=== PATIENT | male | born 1945 | race Caucasian/White ===

== ENCOUNTER → 2017-03-30 | Day surgery (SDC) | payer MEDICARE, MEDICAID ==
--- NOTE | 2017-03-29 18:28 | MH ---
cc: ASYA GUADARRAMA DATE OF ADMISSION 03/30/2017 ADMISSION DIAGNOSIS Compression fracture of L2, subacute. HISTORY OF THE PRESENT ILLNESS This patient is 71-year-old white male with a known history of malignant lung neoplasia. The patient had chronic long-term low back pain but over the last month or two especially he has had significant increasing pain and decreasing function. An MRI scan was obtained showing evidence of a compression fracture at the L2 level. The patient presents for surgical treatment of the above condition. PAST MEDICAL HISTORY, SOCIAL HISTORY, FAMILY HISTORY AND REVIEW OF SYMPTOMS See attached notes. PHYSICAL EXAMINATION VITAL SIGNS: 5 feet, 3 inches, 98 pounds, BMI 17.4. Blood pressure 122/64. GENERAL: White male. He has a moderate kyphotic posture. HEENT: Normocephalic, atraumatic. Pupils equal, round, reactive to light and accommodation. Extraocular motions intact. NECK: Supple. CHEST: Clear with some decreased breath sounds. HEART: Regular rate and rhythm. ABDOMEN: Soft and nontender. Normoactive bowel sounds. MUSCULOSKELETAL: Stooped forward gait. He has moderate thoracic kyphosis. Moderate spasm is seen. Dorsalis pedis and posterior tibialis pulses diminished. Motor examination is normal. IMPRESSION 1. Compression fracture L2, subacute. 2. History of malignant neoplasm of the lung status post resection. PLAN Kyphoplasty of L2 with a biopsy. CONSENT The risks of this condition and surgery including infection, bleeding, loss of motion, continued pain, need for further surgery, neurologic and vascular injury. The patient understands these issues and wishes to press on with surgery as outlined above. MD MODE Rand/CHANG /5:59 PM /6:14 PM LIYA
[~2017-03-30] VITALS: Ht 160 cm; Wt 44.9 kg
[~2017-03-30] MED LIST: ACETAMINOPHEN/HYDROcodone 325 MG/7.5 MG TAB PO PRN; BUPIVACAINE/EPINEPHRINE 0.25% PF 10 ML VIAL ONE; CHLORHEXIDINE GLUCONATE 2 % 1 PACK (2 CLOTHS) TOPICAL PRN; CLON1TAB PO; DICL50TA3 PO; DO NOT ADM ANY ANTICOAGULANT DRUGS PRN; HYDR-3288 PO; IBUP-232 PO; INSULIN HUMAN REGULAR 1,000 UNITS/10 ML VIAL SQ PRN; KETAMINE HCL 500 MG/5 ML VIAL ONE; KETOROLAC TROMETHAMINE 60 MG/2 ML (IM) VIAL IM ONE; LABETALOL HCL 100 MG/20 ML VIAL ONE; LACTATED RINGER'S 1000 ML INJ 1,000 ML IV SCH; LACTATED RINGER'S 1000 ML IV PRN; LIDOCAINE 1%/EPINEPHrine 1:100,000 SOLN 20 ML VIAL ONE; LISI10TA3 PO; METOPROLOL TARTRATE 25 MG TAB PO PRN; MIDAZOLAM HCL 2 MG/2 ML VIAL ONE; MORPHINE SULFATE 4 MG/ML INJ IV PRN; MORPHINE SULFATE 4 MG/ML INJ ONE; PERC5TAB12 PO; PHENYLEPH/NS 1000 MCG/10 ML SYR IV ONE; POVIDONE IODINE 5% (ANTISEPSIS KIT) 4 APPLICATIONS EACH NARE PRN; POVIDONE IODINE 7.5% SCRUB 118 ML BOTTLE TOPICAL SCH; PROPOFOL 200 MG/20 ML AMP IV ONE; PROS5TAB PO; SERT25TA83 PO; SODIUM CHLORID 0.9% 500 ML IV PRN; TAMS0.4C4 PO; TEMA15CA PO; Z.0.NO CURRENT MEDS; ZOLO25TA PO; ceFAZolin 2 GM PREMIX 50 ML IV SCH; ePHEDrine/NS 25 MG/5 ML SYR IV ONE
[2017-03-30 13:18] VITALS: BP 152/104; PULSE 88; RESP 18; TEMP 97.8; O2SAT 98
[2017-03-30 13:31] LABS: AUTOMATED NEUTROPHIL # 4.5 TH/MM3 (1.8-7.7); BASOPHIL # 0.1 TH/MM3 (0-0.2); BASOPHIL % 1.3 % (0.0-2.0); EOSINOPHIL # 0.2 TH/MM3 (0-0.4); EOSINOPHIL % 2.2 % (0.0-4.0); HEMO FLAGS DIFF FINAL; LYMPH % 25.5 % (9.0-44.0); LYMPHOCYTE # 1.8 TH/MM3 (1.0-4.8); MEAN CELL VOLUME 101.3 FL (80.0-100.0); MEAN CORPUSCULAR HEMOGLOBIN 33.8 PG (27.0-34.0); MEAN CORPUSCULAR HGB CONC 33.4 % (32.0-36.0); MONO % 7.5 % (0.0-8.0); NEUT % 63.5 % (16.0-70.0); PLATELET COUNT 302 TH/MM3 (150-450); RED BLOOD COUNT 4.05 MIL/MM3 (4.50-5.90); RED CELL DISTRIBUTION WIDTH 14.2 % (11.6-17.2); WHITE BLOOD COUNT 7.1 TH/MM3 (4.0-11.0)
[2017-03-30 13:40] LABS: PROTHROMBIN TIME - PATIENT 11.2 SEC (9.8-11.6)
--- NOTE | 2017-03-30 17:07 | PD.OP ---
cc: Camilo Umanzor MD Operative Report Date of Surgery: Mar 30, 2017 Preoperative Diagnosis: Compression fracture, L2 subacute Postoperative Diagnosis: Same Procedure: Kyphoplasty of L2 Anesthesia: TIVA Surgeon: Camilo Umanzor Blocking Machine Operator Second(s): None Operation and Findings: EBL: Minimal cc INDICATION: This patient is a 71-year-old male with increasing back pain related to a subacute fracture at the L2 level. The patient has a history of malignant neoplasia. The patient presents for biopsy with a kyphoplasty of L2 PROCEDURE: The patient was brought to the operating room and given light sedation.. The patient was allowed to rolled to a prone position on a well- padded radiolucent table. All pressure points were protected in the back was scrubbed with alcohol followed by Hibiclens followed by ChloraPrep and draped sterilely. A timeout was done and antibiotics were given. AP and lateral radiographic images were used to identify the proper levels and perform skin markings. We started from the left side at the L2 level. Local anesthesia was utilized. A small incision was made. An awl was placed down through the skin subcutaneous tissue and muscle down to the end of the facet joint. This is placed through the pedicle controlling this under AP and lateral images. A proper size balloon was placed through this allowing correction of the deformity. On the back table methylmethacrylate was mixed. After approximately 11 minutes it was injected at this region. We had minimal extravasation. The cement was allowed harden. The tubes were removed. Intraoperative x-rays were obtained in AP and lateral plane. The wound was irrigated anesthetized and closed with 4-0 Vicryl followed by Dermabond. The sponge count and needle counts and instrument counts were all correct. The patient tolerated the procedure well as taken to the recovery room in satisfactory condition. FINDINGS: There was evidence of a subacute fracture at L2. Correction was incomplete with the balloon. Alignment was satisfactory. No complication was appreciated. Camilo Umanzor MD Mar 30, 2017 17:07
[2017-03-30 18:37] VITALS: BP 158/78; PULSE 65; RESP 16; TEMP 97.4; O2SAT 96
--- NOTE | 2017-03-30 18:46 | RADRPT ---
EXAM DATE/TIME: 03/30/2017 16:58 [facility] COMPARISON: SPINE LUMBAR LTD (AP & LAT), June 06, 2011, 23:13. INDICATIONS : L2 KYPHOPLASTY. MEDICAL HISTORY : Unobtainable. SURGICAL HISTORY : Unobtainable. ENCOUNTER: Initial ACUITY: 1 day PAIN SCORE: Non-responsive. LOCATION: Lumbar spine. FINDINGS: 2 magnified C-arm spot views centered over the lumbar spine. A single level cement augmentation is ob served. CONCLUSION: Limited image as detailed above. Efrain Orr Jr., MD on March 30, 2017 at 18:44 Board Certified Radiologist. This report was verified electronically.
--- NOTE | 2017-03-31 12:12 | EKG ---
Date Performed: 03/30/2017 Time Performed: 13:23:59 PTAGE: 71 years EKG: Sinus rhythm SEPTAL MYOCARDIAL INFARCTION , PROBABLY OLD ABNORMAL ECG NO PREVIOUS TRACING DOCTOR: Austin Figueroa Interpretating Date/Time 03/31/2017 12:08:48
== END | disposition home or self-care (01) ==
LOC: HSDC 12:39
PROVIDERS: ATTEND Orthopaedic Surgery Orthopaedic Surgery of the Spine
DX: S32.029A Unspecified fracture of second lumbar vertebra, initial encounter for closed fracture (principal); G89.29 Other chronic pain; M54.5 Low back pain; Z85.118 Personal history of other malignant neoplasm of bronchus and lung; K21.9 Gastro-esophageal reflux disease without esophagitis; I10 Essential (primary) hypertension; F17.200 Nicotine dependence, unspecified, uncomplicated; X58.XXXA Exposure to other specified factors, initial encounter; Z86.73 Personal history of transient ischemic attack (TIA), and cerebral infarction without residual deficits; Z92.21 Personal history of antineoplastic chemotherapy; Z92.3 Personal history of irradiation
CPT/HCPCS: 22514; 72100; 76000; 85025; 85610; 85730; 86850; 86900; 86901; 88307; 88311; 88341; 88342; 93005; J1885; J2250; J2270; J2370; J3010; J7120

== ENCOUNTER 2017-04-18 14:52 | Emergency (ER) | payer MEDICAID, MEDICARE, OTHER ==
[~2017-04-18] VITALS: Ht 160 cm; Wt 44.5 kg
[~2017-04-18 14:52] MED LIST changes: -ACETAMINOPHEN/HYDROcodone 325 MG/7.5 MG TAB PO PRN; -BUPIVACAINE/EPINEPHRINE 0.25% PF 10 ML VIAL ONE; -CHLORHEXIDINE GLUCONATE 2 % 1 PACK (2 CLOTHS) TOPICAL PRN; -DO NOT ADM ANY ANTICOAGULANT DRUGS PRN; -IBUP-232 PO; -INSULIN HUMAN REGULAR 1,000 UNITS/10 ML VIAL SQ PRN; -KETAMINE HCL 500 MG/5 ML VIAL ONE; -KETOROLAC TROMETHAMINE 60 MG/2 ML (IM) VIAL IM ONE; -LABETALOL HCL 100 MG/20 ML VIAL ONE; -LACTATED RINGER'S 1000 ML INJ 1,000 ML IV SCH; -LACTATED RINGER'S 1000 ML IV PRN; -LIDOCAINE 1%/EPINEPHrine 1:100,000 SOLN 20 ML VIAL ONE; -METOPROLOL TARTRATE 25 MG TAB PO PRN; -MIDAZOLAM HCL 2 MG/2 ML VIAL ONE; -MORPHINE SULFATE 4 MG/ML INJ IV PRN; -MORPHINE SULFATE 4 MG/ML INJ ONE; -PERC5TAB12 PO; -PHENYLEPH/NS 1000 MCG/10 ML SYR IV ONE; -POVIDONE IODINE 5% (ANTISEPSIS KIT) 4 APPLICATIONS EACH NARE PRN; -POVIDONE IODINE 7.5% SCRUB 118 ML BOTTLE TOPICAL SCH; -PROPOFOL 200 MG/20 ML AMP IV ONE; -SODIUM CHLORID 0.9% 500 ML IV PRN; -Z.0.NO CURRENT MEDS; -ceFAZolin 2 GM PREMIX 50 ML IV SCH; -ePHEDrine/NS 25 MG/5 ML SYR IV ONE
[2017-04-18 14:58] VITALS: BP 71/50; PULSE 66; RESP 30; TEMP 97.4; O2SAT 98
[2017-04-18 15:23] VITALS: BP 93/50; PULSE 78; RESP 16; TEMP 98.6; O2SAT 98
[2017-04-18] MEDS ORDERED: SODIUM CHLORIDE 0.9% FLUSH 10 ML FLUSH IV FLUSH PRN (15:45)
--- NOTE | 2017-04-18 15:46 | PD ---
HPI Chief Complaint: Abdominal Pain Time Seen by Provider: 15:40 Travel History International Travel<30 days: No Contact w/Intl Traveler<30days: No Traveled to known affect area: No History of Present Illness HPI 71yo M with PMH of malignant lung neoplasm and chronic back pain presents to the ED with c/o back pain. Pt had MRI LS that showed compression fracture of L2 and had kyphoplasty of L2 and biopsy by Dr. Nelson. Pt states that they only gave him 5mg hydrocodone and it is not enough. He used to take oxycodone and a higher dose. Pt states he has abdominal pain as well but that is all the time. Pt denies any fever, chest pain, sob, n/v, focal weakness or numbness. Pt states he is very weak with generalized weakness and keeps falling because he is so weak. Feel twice today. Denies any LOC. PFSH Past Medical History Arthritis: Yes Cardiovascular Problems: Yes (HTN) Diminished Hearing: Yes Gastrointestinal Disorders: Yes (ULCERS) Genitourinary: No Headaches: Yes (SOMETIMES) Hypertension: Yes (DOES NOT TAKE MEDS FOR IT) Psychiatric: No Respiratory: No Ulcer: Yes Past Surgical History Abdominal Surgery: Yes (STOMACH SURGERY FOR ULCER, DONE IN [place] IN 1971) Ear Surgery: Yes (BILATERAL EARS LAST YEAR) Other Surgery: Yes Social History Alcohol Use: Yes (OCCASIONAL) Tobacco Use: Yes (1PPD) Substance Use: No Allergies-Medications (Allergen,Severity, Reaction): Coded Allergies: Tramadol (Verified Allergy, Mild, Itching, 03/30/17) Reported Meds & Prescriptions Reported Meds & Active Scripts Active Percocet (Oxycodone-Acetaminophen) 5-325 mg Tab 1 Tab PO Q6H PRN Reported Tamsulosin (Tamsulosin HCl) 0.4 Mg Cap 0.4 Mg PO HS Lisinopril 10 Mg Tab 10 Mg PO DAILY Proscar (Finasteride) 5 Mg Tab 5 Mg PO DAILY Do not crush. Clonazepam 1 Mg Tab 1 Mg PO BID Review of Systems Except as stated in HPI: all other systems reviewed are Neg Physical Exam Narrative GENERAL: 71yo male who is cachetic. SKIN: Focused skin assessment warm/dry. HEAD: Atraumatic. Normocephalic. EYES: Pupils equal and round. No scleral icterus. No injection or drainage. ENT: No nasal bleeding or discharge. Mucous membranes pink and moist. NECK: Trachea midline. No JVD. CARDIOVASCULAR: Regular rate and rhythm. No murmur appreciated. RESPIRATORY: No accessory muscle use. Clear to auscultation. Breath sounds equal bilaterally. GASTROINTESTINAL: Abdomen soft, diffuse tenderness. No rebound tenderness or guarding. BACK: Diffuse lower lumbar pain. MUSCULOSKELETAL: No obvious deformities. No clubbing. No cyanosis. No edema. NEUROLOGICAL: Awake and alert. No obvious cranial nerve deficits. Motor grossly within normal limits. Normal speech. PSYCHIATRIC: Appropriate mood and affect; insight and judgment normal. Data Data Last Documented VS Vital Signs Date Time Temp Pulse Resp B/P Pulse Ox O2 Delivery O2 Flow Rate FiO2 04/18/17 19:30 87 20 137/64 99 04/18/17 17:30 Room Air 04/18/17 15:23 98.6 Orders Complete Blood Count With Diff (04/18/17 15:40) Comprehensive Metabolic Panel (04/18/17 15:40) Prothrombin Time / Inr (Pt) (04/18/17 15:40) Act Partial Throm Time (Ptt) (04/18/17 15:40) Ct Abd/Pel W Iv Contrast(Rout) (04/18/17 15:40) Iv Access Insert/Monitor (04/18/17 15:40) Ecg Monitoring (04/18/17 15:40) Oximetry (04/18/17 15:40) Sodium Chloride 0.9% Flush (Ns Flush) (04/18/17 15:45) Morphine Inj (Morphine Inj) (04/18/17 16:15) Iohexol 350 Inj (Omnipaque 350 Inj) (04/18/17 18:09) Labs Laboratory Tests Test 04/18/17 15:30 White Blood Count 5.9 TH/MM3 Red Blood Count 4.04 MIL/MM3 Hemoglobin 13.3 GM/DL Hematocrit 40.5 % Mean Corpuscular Volume 100.2 FL Mean Corpuscular Hemoglobin 33.0 PG Mean Corpuscular Hemoglobin 32.9 % Concent Red Cell Distribution Width 14.0 % Platelet Count 252 TH/MM3 Mean Platelet Volume 8.9 FL Neutrophils (%) (Auto) 65.8 % Lymphocytes (%) (Auto) 24.4 % Monocytes (%) (Auto) 7.0 % Eosinophils (%) (Auto) 2.3 % Basophils (%) (Auto) 0.5 % Neutrophils # (Auto) 3.9 TH/MM3 Lymphocytes # (Auto) 1.4 TH/MM3 Monocytes # (Auto) 0.4 TH/MM3 Eosinophils # (Auto) 0.1 TH/MM3 Basophils # (Auto) 0.0 TH/MM3 CBC Comment DIFF FINAL Differential Comment Prothrombin Time 11.5 SEC Prothromb Time International 1.0 RATIO Ratio Activated Partial 27.8 SEC Thromboplast Time Sodium Level 137 MEQ/L Potassium Level 4.6 MEQ/L Chloride Level 105 MEQ/L Carbon Dioxide Level 26.0 MEQ/L Anion Gap 6 MEQ/L Blood Urea Nitrogen 15 MG/DL Creatinine 1.07 MG/DL Estimat Glomerular Filtration 69 ML/MIN Rate Random Glucose 100 MG/DL Calcium Level 8.9 MG/DL Total Bilirubin 0.3 MG/DL Aspartate Amino Transf 14 U/L (AST/SGOT) Alanine Aminotransferase 11 U/L (ALT/SGPT) Alkaline Phosphatase 73 U/L Total Protein 7.0 GM/DL Albumin 4.0 GM/DL MDM Medical Decision Making Medical Screen Exam Complete: Yes Emergency Medical Condition: Yes Differential Diagnosis metastatic disease vs. failure to thrive Narrative Course 71yo M with lung CA here with complain of generalized weakness and fell because he is so weak. Pt also has chronic back pain and abdominal pain. States hydrocdone does not work. BP at triage was initially 71/50 but pt is very small and cachetic. When we checked his pressure with pediatric bp cuff, it was 93/50. Repeat BP was 131/62. Pt is requesting morphine for pain. Will give 4mg IV. Labs reviewed, no leukocytosis. H/H normal. CMP unremarkable. CT a/p showed no acute findings within the abdomen and pelvis. Pt reevaluated after morphine 4mg IV and states his pain has resolved. States that now he is able to walk and that before, he was in too much pain to walk. States he no longer feels weak. I offered hospice care but pt is not ready for it. States that if I give him some pain medication, he will be able to follow up with his doctor. Pt last had chemo 4 years ago and oncologist was Dr. Guajardo. Pt states he feels good and is ambulating in the ED. States he is sorry that he lied and he tripped over shoe and fell and not because of weakness. States he will follow up with his PMD. Return precautions given. Diagnosis Primary Impression: Chronic back pain Qualified Code: M54.5 - Chronic bilateral low back pain without sciatica Patient Instructions: General Instructions Departure Forms: Tests/Procedures Additional Instructions: Please follow up with your PMD in 1-2 days. Return to the ED if symptoms worsen. Med/Other Pt SpecificInfo: Prescription(s) given Scripts Oxycodone-Acetaminophen (Percocet)5-325 mg Tab1 Tab PO Q6H PRN (PAIN) #7 TAB Ref 0 Prov:Helen Martinez DO 04/18/17 Disposition: 01 DISCHARGE HOME Condition: Stable Helen Martinez DO Apr 18, 2017 15:46
[2017-04-18 15:56] VITALS: BP 131/62; PULSE 52; RESP 16; O2SAT 98
[2017-04-18] MEDS ORDERED: MORPHINE SULFATE 4 MG/ML INJ IV PUSH ONE (16:15)
[2017-04-18 16:34] LABS: AUTOMATED NEUTROPHIL # 3.9 TH/MM3 (1.8-7.7); BASOPHIL % 0.5 % (0.0-2.0); EOSINOPHIL # 0.1 TH/MM3 (0-0.4); EOSINOPHIL % 2.3 % (0.0-4.0); HEMATOCRIT 40.5 % (39.0-51.0); HEMO FLAGS DIFF FINAL; LYMPH % 24.4 % (9.0-44.0); LYMPHOCYTE # 1.4 TH/MM3 (1.0-4.8); MEAN CELL VOLUME 100.2 FL (80.0-100.0); MEAN CORPUSCULAR HGB CONC 32.9 % (32.0-36.0); NEUT % 65.8 % (16.0-70.0); PLATELET COUNT 252 TH/MM3 (150-450); RED BLOOD COUNT 4.04 MIL/MM3 (4.50-5.90); WHITE BLOOD COUNT 5.9 TH/MM3 (4.0-11.0)
[2017-04-18 16:35] LABS: APTT (PATIENT) 27.8 SEC (24.3-30.1); PROTHROMBIN TIME - PATIENT 11.5 SEC (9.8-11.6)
[2017-04-18 16:41] LABS: ALT (GPT) 11 U/L (12-78); ANION GAP 6 MEQ/L (5-15); AST (GOT) 14 U/L (15-37); BLOOD UREA NITROGEN 15 MG/DL (7-18); CHLORIDE 105 MEQ/L (98-107); GLOMERULAR FILTRATION RATE 69 ML/MIN (>89); POTASSIUM 4.6 MEQ/L (3.5-5.1); SODIUM (NA) 137 MEQ/L (136-145)
[2017-04-18 16:44] LABS: ALKALINE PHOSPHATASE 73 U/L (45-117); TOTAL BILIRUBIN ADULT 0.3 MG/DL (0.2-1.0)
[2017-04-18 17:30] VITALS: BP 133/68; PULSE 56; RESP 16; O2SAT 95
[2017-04-18] MEDS ORDERED: IOHEXOL 350 MG/ML 10 ML VIAL (for RAD DIAG) IV ONE (18:09)
--- NOTE | 2017-04-18 18:35 | RADRPT ---
EXAM DATE/TIME: 04/18/2017 17:59 [facility] COMPARISON: No previous studies available for comparison. INDICATIONS : Abdomen pain. IV CONTRAST: 75 cc Omnipaque 350 (iohexol) IV ORAL CONTRAST: No oral contrast ingested. RADIATION DOSE: 4.65 CTDIvol (mGy) MEDICAL HISTORY : Carcinoma, lung. Hypertension. SURGICAL HISTORY : Kyphoplasty. ENCOUNTER: Initial ACUITY: 1 month PAIN SCALE: 5/10 LOCATION: abdomen TECHNIQUE: Volumetric scanning of the abdomen and pelvis was performed. Using automated exposure control and ad justment of the mA and/or kV according to patient size, radiation dose was kept as low as reasonably achievable to obtain optimal diagnostic quality images. FINDINGS: Lung bases demonstrate moderate emphysema. Parenchymal scarring right lung base with partial resectio n right lung. No acute findings within the liver, spleen, kidneys or pancreas. There is fatty infiltration of the l iver. Left adrenal gland is enlarged to 1.7 cm in diameter. Right kidney is unremarkable. No pelvic masses or free fluid. No bowel obstruction. 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 There is a compression deformity of L2 status post kyphoplasty. CONCLUSION: 1. No acute findings within the abdomen and pelvis. No bowel obstruction, free air or free fluid. 2. Dense atherosclerotic disease in the aorta and branches with likely occlusive disease in the iliac arteries. 3. Fatty liver. Mild left adrenal enlargement, probably adenomatous. 4. Moderate emphysema at the lung bases. Peter Nicolas MD on April 18, 2017 at 18:24 Board Certified Radiologist. This report was verified electronically.
[2017-04-18] MEDS ORDERED: PERC5TAB12 PO (19:00)
[2017-04-18 19:11] VITALS: RESP 20
[2017-04-18 19:30] VITALS: BP 137/64
== END 2017-04-18 19:32 | disposition home or self-care (01) ==
LOC: NEPE 14:52
DX: M54.5 Low back pain (principal); G89.29 Other chronic pain; R10.9 Unspecified abdominal pain; C34.90 Malignant neoplasm of unspecified part of unspecified bronchus or lung; I10 Essential (primary) hypertension; H91.90 Unspecified hearing loss, unspecified ear; F17.200 Nicotine dependence, unspecified, uncomplicated; Z98.890 Other specified postprocedural states; Z87.39 Personal history of other diseases of the musculoskeletal system and connective tissue; Z86.79 Personal history of other diseases of the circulatory system; Z87.19 Personal history of other diseases of the digestive system
CPT/HCPCS: 74177; 80053; 85025; 85610; 85730; 96374; 99285; J2270; Q9967

== ENCOUNTER 2017-05-04 14:42 | Emergency (ER) | payer OTHER ==
[~2017-05-04] VITALS: Ht 160 cm; Wt 44.5 kg
[~2017-05-04 14:42] MED LIST changes: -DICL50TA3 PO; -HYDR-3288 PO; +PERC5TAB12 PO; -SERT25TA83 PO; -TEMA15CA PO; -ZOLO25TA PO
[2017-05-04 14:46] VITALS: BP 188/94; PULSE 92; RESP 16; TEMP 97.7; O2SAT 98
[2017-05-04] MEDS ORDERED: ONDANSETRON HCL 4 MG/2 ML VIAL IV PUSH ONE (16:45)
[2017-05-04] MEDS ORDERED: MORPHINE SULFATE 4 MG/ML INJ IV PUSH ONE (16:45)
--- NOTE | 2017-05-04 16:45 | PD ---
HPI Chief Complaint: Back/ Neck Pain or Injury Time Seen by Provider: 16:30 Travel History International Travel<30 days: No Contact w/Intl Traveler<30days: No Traveled to known affect area: No History of Present Illness HPI This is a 71-year-old male who presents for evaluation of back pain and urinary hesitancy. The patient underwent a L2 kyphoplasty on [address] Umanzor. Since then he has had lower back pain. He was seen here for evaluation of this on April 18. He had a normal CT of the abdomen and pelvis with contrast. He was discharged with Percocet. He quit using it because it was making itchy. He reports over the past week he has developed urinary hesitancy. He reports that it takes approximately 30 minutes in order to initiating urine stream. He is denying any dysuria or abdominal pain or flank pain. He denies any fevers or chills. He reports that he was seen at a different hospital and he was given an antibiotic, Bactrim, for this symptom. The Bactrim is not helped and this is what prompted evaluation today. He denies any lower extremity weakness, bowel or bladder incontinence, saddle anesthesia. He has no other complaints. PFSH Past Medical History Arthritis: Yes Cardiovascular Problems: Yes Diminished Hearing: Yes Gastrointestinal Disorders: Yes (ULCERS) Genitourinary: No Headaches: Yes (SOMETIMES) Hypertension: Yes (DOES NOT TAKE MEDS FOR IT) Implanted Vascular Access Dvce: No Psychiatric: No Respiratory: No Ulcer: Yes Past Surgical History Abdominal Surgery: Yes (STOMACH SURGERY FOR ULCER, DONE IN [place] IN 1971) Ear Surgery: Yes (BILATERAL EARS LAST YEAR) Other Surgery: Yes Social History Alcohol Use: No Tobacco Use: No Substance Use: No Allergies-Medications (Allergen,Severity, Reaction): Coded Allergies: Tramadol (Verified Allergy, Mild, Itching, 05/04/17) Reported Meds & Prescriptions Reported Meds & Active Scripts Active Naproxen 500 Mg Tab 500 Mg PO BID 7 Days Tylenol-Codeine #3 (Acetaminophen-Codeine) 300-30 mg Tab 1 Tab PO Q4H PRN Percocet (Oxycodone-Acetaminophen) 5-325 mg Tab 1 Tab PO Q6H PRN Reported Tamsulosin (Tamsulosin HCl) 0.4 Mg Cap 0.4 Mg PO HS Lisinopril 10 Mg Tab 10 Mg PO DAILY Proscar (Finasteride) 5 Mg Tab 5 Mg PO DAILY Do not crush. Clonazepam 1 Mg Tab 1 Mg PO BID Review of Systems Except as stated in HPI: all other systems reviewed are Neg Physical Exam Narrative GENERAL: SKIN: Warm and dry. HEAD: Atraumatic. Normocephalic. EYES: Pupils equal and round. No scleral icterus. No injection or drainage. ENT: No nasal bleeding or discharge. Mucous membranes pink and moist. NECK: Trachea midline. No JVD. CARDIOVASCULAR: Regular rate and rhythm. No murmur appreciated. RESPIRATORY: No accessory muscle use. Clear to auscultation. Breath sounds equal bilaterally. GASTROINTESTINAL: Abdomen soft, non-tender, nondistended. Hepatic and splenic margins not palpable. Rectal examination reveals no tenderness to palpation or abnormalities of the prostate, no palpable masses. MUSCULOSKELETAL: No obvious deformities. There is some tenderness to palpation along the lumbar midline spine. No CVA tenderness. NEUROLOGICAL: Awake and alert. No obvious cranial nerve deficits. Motor grossly within normal limits. Normal speech.3+ patellar reflex bilaterally, 2+ Achilles tendon reflex bilaterally. No clonus. 5 out of 5 muscle strength hip flexion, leg flexion and extension, dorsi and plantar flexion bilaterally. PSYCHIATRIC: Appropriate mood and affect; insight and judgment normal. Data Data Last Documented VS Vital Signs Date Time Temp Pulse Resp B/P Pulse Ox O2 Delivery O2 Flow Rate FiO2 05/04/17 14:46 97.7 92 16 188/94 98 Room Air Orders Complete Blood Count With Diff (05/04/17 16:38) Basic Metabolic Panel (Bmp) (05/04/17 16:38) Urinalysis - C+S If Indicated (05/04/17 16:38) Morphine Inj (Morphine Inj) (05/04/17 16:45) Ondansetron Inj (Zofran Inj) (05/04/17 16:45) Sodium Chlor 0.9% 1000 Ml Inj (Ns 1000 M (05/04/17 17:22) Ed Poc Ultrasound (05/04/17 ) Skull, Limited (<4 Views) (05/04/17 ) Sodium Chlor 0.9% 1000 Ml Inj (Ns 1000 M (05/04/17 19:07) Mri L Spine W&W/O Contrast (05/04/17 ) Gadodiamide Pf Inj (Omniscan Pf Inj) (05/04/17 19:54) Labs Laboratory Tests Test 05/04/17 16:45 White Blood Count 6.0 TH/MM3 Red Blood Count 3.99 MIL/MM3 Hemoglobin 13.3 GM/DL Hematocrit 39.9 % Mean Corpuscular Volume 100.0 FL Mean Corpuscular Hemoglobin 33.2 PG Mean Corpuscular Hemoglobin 33.2 % Concent Red Cell Distribution Width 14.5 % Platelet Count 251 TH/MM3 Mean Platelet Volume 8.4 FL Neutrophils (%) (Auto) 79.4 % Lymphocytes (%) (Auto) 12.9 % Monocytes (%) (Auto) 6.8 % Eosinophils (%) (Auto) 0.3 % Basophils (%) (Auto) 0.6 % Neutrophils # (Auto) 4.8 TH/MM3 Lymphocytes # (Auto) 0.8 TH/MM3 Monocytes # (Auto) 0.4 TH/MM3 Eosinophils # (Auto) 0.0 TH/MM3 Basophils # (Auto) 0.0 TH/MM3 CBC Comment DIFF FINAL Differential Comment Urine Color YELLOW Urine Turbidity HAZY Urine pH 6.0 Urine Specific [place] 1.034 Urine Protein 30 mg/dL Urine Glucose (UA) NEG mg/dL Urine Ketones TRACE mg/dL Urine Occult Blood NEG Urine Nitrite NEG Urine Bilirubin NEG Urine Urobilinogen 4.0 MG/DL Urine Leukocyte Esterase TRACE Urine RBC 2 /hpf Urine WBC 2 /hpf Urine Squamous Epithelial <1 /hpf Cells Urine Amorphous Sediment RARE Urine Hyaline Casts 12 /lpf Urine Mucus FEW /lpf Microscopic Urinalysis Comment CULT NOT INDICATED Sodium Level 139 MEQ/L Potassium Level 4.2 MEQ/L Chloride Level 105 MEQ/L Carbon Dioxide Level 25.9 MEQ/L Anion Gap 8 MEQ/L Blood Urea Nitrogen 28 MG/DL Creatinine 1.32 MG/DL Estimat Glomerular Filtration 54 ML/MIN Rate Random Glucose 127 MG/DL Calcium Level 9.2 MG/DL [facility] Medical Decision Making Medical Screen Exam Complete: Yes Emergency Medical Condition: Yes Medical Record Reviewed: Yes Interpretation(s) CONCLUSION: 1. Kyphoplasty at L2 without extension of the vertebral body or narrowing of the bony spinal canal. 2. Signal abnormality of the superior endplate of L4 suggesting a acute or subacute compression deformity causing less than 10% loss of height. 3. Small left paracentral protrusion of the disc at L5-S1 extending into the neural foramen on the left side without deformity of the thecal sac or neural impingement. Differential Diagnosis Prostatitis, urinary retention, spinal cord injury, epidural abscess, cystitis, postoperative back pain Narrative Course 71-year-old male who has had back pain ever since a kyphoplasty performed on March 30. Over the past week he has developed urinary hesitancy. Plan is for basic lab work, urinalysis and MRI of the lumbar spine. The patient required an excessive amount of time in order to make a urinalysis. Eventually a straight catheterization was placed in his urine was noted to be dark in color. Additional IV fluids have been ordered. He is GFR is 54 today which is down from 69 on April 18. Urinalysis today reveals trace ketones, trace leukocytes, 30 protein, urobilinogen. MRI reveals a less than 10% loss of height of L4 which could be acute or subacute. The patient was given a copy of his MRI results. He is stable for discharge to follow-up with his orthopedist. It is also recommended that he follow-up with his primary care physician in regards to his urinary hesitancy. Diagnosis Primary Impression: Compression fracture of L4 lumbar vertebra Qualified Code: S32.040A - Compression fracture of L4 lumbar vertebra, closed , initial encounter Additional Impression: Urinary hesitancy Referrals: Camilo Umanzor MD Primary Care Physician Additional Instructions: Medication as needed. Stay well hydrated. Follow-up with your primary care physician and Dr. Umanzor. Return for any emergent medical conditions. Med/Other Pt SpecificInfo: Prescription(s) given Scripts Naproxen 500 Mg [id number] Mg PO BID 7 Days Ref 0 Prov:Jose Workman MD 05/04/17 Acetaminophen-Codeine (Tylenol-Codeine #3)300-30 mg Tab1 Tab PO Q4H PRN (PAIN) # 20 TAB Ref 0 Prov:Jose Workman MD 05/04/17 Disposition: 01 DISCHARGE HOME Condition: Stable Kirit Arceo May 04, 2017 16:45
[2017-05-04] MEDS ORDERED: SODIUM CHLOR 0.9% 1000 ML INJ 1,000 ML IV SCH ×2 (17:22→19:07)
[2017-05-04 17:36] LABS: AUTOMATED NEUTROPHIL # 4.8 TH/MM3 (1.8-7.7); BASOPHIL % 0.6 % (0.0-2.0); EOSINOPHIL % 0.3 % (0.0-4.0); HEMATOCRIT 39.9 % (39.0-51.0); HEMO FLAGS DIFF FINAL; LYMPH % 12.9 % (9.0-44.0); LYMPHOCYTE # 0.8 TH/MM3 (1.0-4.8); MEAN CORPUSCULAR HEMOGLOBIN 33.2 PG (27.0-34.0); MEAN CORPUSCULAR HGB CONC 33.2 % (32.0-36.0); MONO % 6.8 % (0.0-8.0); NEUT % 79.4 % (16.0-70.0); PLATELET COUNT 251 TH/MM3 (150-450); RED BLOOD COUNT 3.99 MIL/MM3 (4.50-5.90); RED CELL DISTRIBUTION WIDTH 14.5 % (11.6-17.2)
[2017-05-04 18:07] LABS: BICARBONATE 25.9 MEQ/L (21.0-32.0); POTASSIUM 4.2 MEQ/L (3.5-5.1)
--- NOTE | 2017-05-04 18:43 | RADRPT ---
EXAM DATE/TIME: 05/04/2017 18:10 [facility] COMPARISON: No previous studies available for comparison. INDICATIONS : Pre screening for MRI; previous bilateral ear surgery. MEDICAL HISTORY : None. SURGICAL HISTORY : Bilateral ear surgery. ENCOUNTER: Initial ACUITY: 1 day PAIN SCORE: 0/10 LOCATION: Bilateral skull. FINDINGS: A two view examination of the skull demonstrates no evidence of fracture. The pituitary fossa is nor mal in configuration. No radiopaque foreign bodies are seen. CONCLUSION: No contraindication to MRI seen. Efrain Montague MD on May 04, 2017 at 18:40 Board Certified Radiologist. This report was verified electronically.
[2017-05-04] MEDS ORDERED: GADODIAMIDE PF 287 MG/ML 10 ML VIAL (for RAD MRI) IV ONE (19:54)
[2017-05-04 20:04] LABS: BLOOD, URINE NEG (NEG); COMMENT (UR) CULT NOT INDICATED; CULTURE IF INDICATED CULT NOT INDICATED; GLUCOSE,URINE NEG (NEG); HYALINE CAST, URINE 12 /lpf (RARE); KETONE, URINE TRACE mg/dL (NEG); MUCUS URINE FEW /lpf (OCC); NITRITE,URINE NEG (NEG); SQUAMOUS EPITHELIAL CELL URINE <1 /hpf (0-5); URINE COLOR YELLOW (YELLW/STRAW)
--- NOTE | 2017-05-04 20:54 | RADRPT ---
EXAM DATE/TIME: 05/04/2017 19:39 [facility] COMPARISON: No previous studies available for comparison. INDICATIONS : Pain. Status post kyphoplasty with inability to urinate. CONTRAST: 9 cc Omniscan (gadodiamide) IV MEDICAL HISTORY : Hypertension. SURGICAL HISTORY : Kyphoplasty. Ear surgery. ENCOUNTER: Subsequent ACUITY: 1 week PAIN SCORE: 5/10 LOCATION: Lower back. TECHNIQUE: Multiplanar multisequence MRI of the lumbar spine was performed with and without contrast. FINDINGS: The most caudal appearing lumbar vertebra is numbered as L5. If there is signal void within the cent ral and anterior L2 vertebral body characteristic of vertebroplasty cement. There is some mild surro unding T2 prolongation in the marrow of T2 extending into the pedicle on the left side. The posterio r cortex of L2 is intact. No retropulsed or protruding fragment. At L4, there is some mild T2 prolo ngation and some minimal enhancement along the superior endplate suggesting an acute or subacute comp ression deformity. There is less than 10% loss of height of the L4 vertebral body. The conus is at the level of T12. No paraspinal masses or swelling is seen. T12-L1: The thecal sac has a normal diameter. No evidence of disc bulge or protrusion. The neural foramina are patent bilaterally. L1-L2: The thecal sac has a normal diameter. No evidence of disc bulge or protrusion. The neural foramina are patent bilaterally. L2-L3: The thecal sac has a normal diameter. No evidence of disc bulge or protrusion. The neural foramina are patent bilaterally. L3-L4: Minimal bulging of the disc into the neural foramen on the left side without evidence neural impingem ent. No focal disc protrusion. L4-L5: The thecal sac has a normal diameter. No evidence of disc bulge or protrusion. The neural foramina are patent bilaterally. L5-S1: Small left paracentral disc protrusion is contained within the epidural fat. No deformity of the the abdullahi sac. The disc bulge does extend into the neural foramen without evidence of neural impingement. CONCLUSION: 1. Kyphoplasty at L2 without extension of the vertebral body or narrowing of the bony spinal canal. 2. Signal abnormality of the superior endplate of L4 suggesting a acute or subacute compression defor mity causing less than 10% loss of height. 3. Small left paracentral protrusion of the disc at L5-S1 extending into the neural foramen on the le ft side without deformity of the thecal sac or neural impingement. Efrain Montague MD on May 04, 2017 at 20:46 Board Certified Radiologist. This report was verified electronically.
[2017-05-04] MEDS ORDERED: TYLETAB34 PO (20:59)
[2017-05-04] MEDS ORDERED: NAPR500T PO (20:59)
[2017-05-12] MEDS ORDERED: HYDR-3516 PO ×2 (11:29→11:31)
== END 2017-05-04 21:23 | disposition home or self-care (01) ==
LOC: NEPC 14:42
DX: S32.040A Wedge compression fracture of fourth lumbar vertebra, initial encounter for closed fracture (principal); R39.11 Hesitancy of micturition; M96.3 Postlaminectomy kyphosis; Z98.890 Other specified postprocedural states; M51.26 Other intervertebral disc displacement, lumbar region; X58.XXXA Exposure to other specified factors, initial encounter
CPT/HCPCS: 70250; 72158; 80048; 81001; 85025; 96361; 96374; 96375; 99285; A9579; J2270; J2405; J7030; P9612

== ENCOUNTER 2017-05-11 17:10 | Emergency (ER) | payer OTHER ==
[~2017-05-11] VITALS: Ht 157.5 cm; Wt 45.0 kg
[~2017-05-11 17:10] MED LIST changes: +NAPR500T PO; +TYLETAB34 PO
[2017-05-11 17:24] VITALS: BP 144/78; PULSE 76; RESP 20; TEMP 98.3; O2SAT 98
[2017-05-11 17:30] VITALS: BP 179/81; PULSE 77; RESP 18; TEMP 97.9; O2SAT 100
[2017-05-11] MEDS ORDERED: KETOROLAC TROMETHAMINE 30 MG/ML (IVP) VIAL IV PUSH ONE (18:45)
[2017-05-11 19:44] LABS: ALT (GPT) 14 U/L (12-78)
[2017-05-11 19:46] LABS: ALKALINE PHOSPHATASE 47 U/L (45-117); TOTAL BILIRUBIN ADULT 0.4 MG/DL (0.2-1.0)
--- NOTE | 2017-05-11 19:46 | PD ---
HPI Chief Complaint: Back/ Neck Pain or Injury Time Seen by Provider: 18:00 Travel History International Travel<30 days: No Contact w/Intl Traveler<30days: No Traveled to known affect area: No History of Present Illness HPI Patient is a 72-year-old male presenting to emergency Department evaluation of back pain. Patient states the pain is over his lower back/hips. He states that he doesn't see his primary care provider until Monday and his orthopedic surgeon told him to follow up with pain management. Patient states his pain is so bad that he can't eat. He also reports lower abdominal pain, he states this is chronic for him with no new issues. Patient has a history of lung cancer. He has no other complaints at this time. He denies any nausea, vomiting, chest pain, shortness of breath, fever, chills, numbness or weakness in his lower extremities, no bladder or bowel incontinence. He has no difficulties urinating. PFSH Past Medical History Arthritis: Yes Cancer: Yes (LUNG) Cardiovascular Problems: Yes Chemotherapy: Yes Diminished Hearing: Yes Gastrointestinal Disorders: Yes (ULCERS) Genitourinary: No Headaches: Yes Hypertension: Yes Implanted Vascular Access Dvce: No Psychiatric: No Respiratory: No Ulcer: Yes Tetanus Vaccination: > 5 Years Influenza Vaccination: No Past Surgical History Abdominal Surgery: Yes (STOMACH SURGERY FOR ULCER, DONE IN [place] IN 1971) Ear Surgery: Yes (BILATERAL EARS LAST YEAR) Other Surgery: Yes Social History Alcohol Use: No Tobacco Use: No Substance Use: No Allergies-Medications (Allergen,Severity, Reaction): Coded Allergies: Oxycodone (Verified Allergy, Mild, Hives, 05/11/17) Tramadol (Verified Allergy, Mild, Itching, 05/11/17) Reported Meds & Prescriptions Reported Meds & Active Scripts Active Hydrocodone-Acetaminophen 5-325 mg Tab 1 Tab PO Q4H PRN Naproxen 500 Mg Tab 500 Mg PO BID 7 Days Tylenol-Codeine #3 (Acetaminophen-Codeine) 300-30 mg Tab 1 Tab PO Q4H PRN Reported Tamsulosin (Tamsulosin HCl) 0.4 Mg Cap 0.4 Mg PO HS Lisinopril 10 Mg Tab 10 Mg PO DAILY Proscar (Finasteride) 5 Mg Tab 5 Mg PO DAILY Do not crush. Clonazepam 1 Mg Tab 1 Mg PO BID Review of Systems Except as stated in HPI: all other systems reviewed are Neg Gastrointestinal: Positive: Abdominal Pain Genitourinary: No: Dysuria Musculoskeletal: Positive: Pain (BACK) Physical Exam Narrative GENERAL: Cachectic, alert elderly gentleman. Resting comfortably in no acute distress. SKIN: Warm and dry. HEAD: Atraumatic. Normocephalic. EYES: Pupils equal and round. No scleral icterus. No injection or drainage. ENT: No nasal bleeding or discharge. Mucous membranes pink and moist. NECK: Trachea midline. No JVD. CARDIOVASCULAR: Regular rate and rhythm. RESPIRATORY: No accessory muscle use. Clear to auscultation. Breath sounds equal bilaterally. GASTROINTESTINAL: Abdomen soft, non-tender, nondistended. Hepatic and splenic margins not palpable. Positive bowel sounds MUSCULOSKELETAL: Extremities without clubbing, cyanosis, or edema. No obvious deformities. Tenderness to palpation over paraspinal musculature and lumbar region. No spinal tenderness or step-off noted NEUROLOGICAL: Awake and alert. No obvious cranial nerve deficits. Motor grossly within normal limits. Five out of 5 muscle strength in the arms and legs. Normal speech. PSYCHIATRIC: Appropriate mood and affect; insight and judgment normal. Data Data Last Documented VS Vital Signs Date Time Temp Pulse Resp B/P Pulse Ox O2 Delivery O2 Flow Rate FiO2 05/11/17 17:30 97.9 77 18 179/81 100 Orders Comprehensive Metabolic Panel (05/11/17 18:31) Urinalysis - C+S If Indicated (05/11/17 18:31) Iv Access Insert/Monitor (05/11/17 18:31) Ketorolac Inj (Toradol Inj) (05/11/17 18:45) Labs Laboratory Tests Test 05/11/17 05/11/17 18:40 19:30 Sodium Level 138 MEQ/L Potassium Level 3.8 MEQ/L Chloride Level 108 MEQ/L Carbon Dioxide Level 26.1 MEQ/L Anion Gap 4 MEQ/L Blood Urea Nitrogen 22 MG/DL Creatinine 0.93 MG/DL Estimat Glomerular Filtration 80 ML/MIN Rate Random Glucose 94 MG/DL Calcium Level 8.7 MG/DL Total Bilirubin 0.4 MG/DL Aspartate Amino Transf 18 U/L (AST/SGOT) Alanine Aminotransferase 14 U/L (ALT/SGPT) Alkaline Phosphatase 47 U/L Total Protein 6.3 GM/DL Albumin 3.9 GM/DL Urine Color YELLOW Urine Turbidity CLEAR Urine pH 6.0 Urine Specific Vulcan 1.032 Urine Protein TRACE mg/dL Urine Glucose (UA) NEG mg/dL Urine Ketones NEG mg/dL Urine Occult Blood NEG Urine Nitrite NEG Urine Bilirubin NEG Urine Urobilinogen 2.0 MG/DL Urine Leukocyte Esterase TRACE Urine RBC 2 /hpf Urine WBC 2 /hpf Urine Squamous Epithelial 1 /hpf Cells Microscopic Urinalysis Comment CATH-CULT NOT IND MDM Medical Decision Making Medical Screen Exam Complete: Yes Emergency Medical Condition: Yes Medical Record Reviewed: Yes Interpretation(s) Vital Signs Date Time Temp Pulse Resp B/P Pulse Ox O2 Delivery O2 Flow Rate FiO2 05/11/17 17:30 97.9 77 18 179/81 100 05/11/17 17:24 98.3 76 20 144/78 98 Differential Diagnosis Malingering versus chronic pain versus UTI versus renal insufficiency versus other Narrative Course Patient is a 72-year-old male that presented to emergency evaluation of back pain and abdominal pain. Patient had an L4 compression fracture diagnosed on 05/04/17. Patient has had no new injury or trauma. He states the pain is consistent with pain that he always has. This includes the abdominal pain. Patient's medical records reviewed, his BUN and creatinine were slightly elevated on his last admission, we will recheck electrolytes and urinalysis. Patient was given Toradol for pain. CMP and urinalysis are unremarkable, patient will be discharged home with a short course of oral narcotic pain medication. He was advised to follow-up with his primary care provider on Monday as scheduled. He was advised to return to emergency department immediately for any new or worsening symptoms. Patient verbalized understanding of instructions. Patient is stable for discharge. 05/12/17 patient return to emergency department with a prescription that he was given last night for hydrocodone/acetaminophen 5/300mg, he stated the pharmacy would not fill it and it needs be written for 5/325 mg. Discussed with my attending physician Dr. Hernandez, a new prescription was written. Diagnosis Primary Impression: Compression fracture of L4 lumbar vertebra Qualified Code: S32.040D - Compression fracture of L4 lumbar vertebra, with routine healing, subsequent encounter Additional Impression: Chronic back pain Qualified Code: M54.5 - Chronic bilateral low back pain without sciatica Referrals: Primary Care Physician Monday as scheduled Patient Instructions: General Instructions, Vertebral Compression Fracture (ED) Additional Instructions: Follow-up with her primary care provider on Monday as scheduled Do not drive or operate machinery while taking narcotic pain medication Return to emergency department for any new or worsening symptoms Apply warm moist heat to affected area Med/Other Pt SpecificInfo: Prescription(s) given Scripts Hydrocodone-Acetaminophen 5-325 mg Tab1 Tab PO Q4H PRN (PAIN) #15 TAB Ref 0 Prov:Eli Hernandez MD 05/12/17 Disposition: 01 DISCHARGE HOME Condition: Stable Yodit Gutierrez May 11, 2017 19:46
[2017-05-11 19:49] LABS: ANION GAP 4 MEQ/L (5-15); AST (GOT) 18 U/L (15-37); BICARBONATE 26.1 MEQ/L (21.0-32.0); BLOOD UREA NITROGEN 22 MG/DL (7-18); CHLORIDE 108 MEQ/L (98-107); GLOMERULAR FILTRATION RATE 80 ML/MIN (>89); POTASSIUM 3.8 MEQ/L (3.5-5.1); SODIUM (NA) 138 MEQ/L (136-145)
[2017-05-11 19:59] LABS: BLOOD, URINE NEG (NEG); GLUCOSE,URINE NEG (NEG); KETONE, URINE NEG (NEG); NITRITE,URINE NEG (NEG); SQUAMOUS EPITHELIAL CELL URINE 1 /hpf (0-5); URINE COLOR YELLOW (YELLW/STRAW)
[2017-05-11 20:02] LABS: COMMENT (UR) CATH-CULT NOT IND; CULTURE IF INDICATED CATH CULTURE NOT IND
[2017-05-11] MEDS ORDERED: HYDR-4107 PO (20:06)
[2017-05-12] MEDS ORDERED: HYDR-3516 PO ×2 (11:29→11:31)
== END 2017-05-11 20:22 | disposition home or self-care (01) ==
LOC: NEPC 17:10
DX: S32.040D Wedge compression fracture of fourth lumbar vertebra, subsequent encounter for fracture with routine healing (principal); G89.29 Other chronic pain; R10.9 Unspecified abdominal pain; I10 Essential (primary) hypertension; M13.80 Other specified arthritis, unspecified site; Z79.899 Other long term (current) drug therapy; Z85.118 Personal history of other malignant neoplasm of bronchus and lung; X58.XXXD Exposure to other specified factors, subsequent encounter
CPT/HCPCS: 80053; 81001; 96374; 99284; J1885

== ENCOUNTER 2017-11-17 00:34 | Inpatient (IN) | payer MEDICARE, MEDICAID, OTHER ==
[2017-11-17] VITALS (13 sets, daily range): BP systolic 132–184; BP diastolic 60–84; PULSE 64–103; RESP 15–20; TEMP 97.5–98.7; O2SAT 93–97
[~2017-11-17] VITALS: Ht 162.6 cm; Wt 50.0 kg
[~2017-11-17 00:34] MED LIST changes: +HYDR-3516 PO; -NAPR500T PO; +NAPR500T2 PO; -PERC5TAB12 PO
[2017-11-17] MEDS ORDERED: predniSONE 20 MG TAB PO ONE (01:00)
[2017-11-17] MEDS ORDERED: SODIUM CHLORIDE 0.9% FLUSH 10 ML FLUSH IVF PRN (01:00)
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
--- NOTE | 2017-11-17 01:18 | RADRPT ---
EXAM DATE/TIME: 11/17/2017 00:55 [facility] COMPARISON: No previous studies available for comparison. INDICATIONS : Altered mental status. RADIATION DOSE: 69.15 CTDIvol (mGy) MEDICAL HISTORY : Non-responsive. SURGICAL HISTORY : Non-responsive. ENCOUNTER: Initial ACUITY: 1 day PAIN SCALE: 0/10 LOCATION: cranial TECHNIQUE: Multiple contiguous axial images were obtained of the head. Using automated exposure control and adj ustment of the mA and/or kV according to patient size, radiation dose was kept as low as reasonably a chievable to obtain optimal diagnostic quality images. DICOM format image data is available electro nically for review and comparison. FINDINGS: CEREBRUM: Moderate diffuse cerebral volume loss. The ventricles are normal for degree of atrophy. No evidence of midline shift, mass lesion, hemorrhage or acute infarction. No extra-axial fluid collections are seen. POSTERIOR FOSSA: The cerebellum and brainstem are intact. The 4th ventricle is midline. The cerebellopontine angle i s unremarkable. EXTRACRANIAL: The visualized portion of the orbits is intact. Minimal fluid in the left maxillary sinus. SKULL: The calvaria is intact. No evidence of skull fracture. CONCLUSION: 1. Senescent changes without acute intracranial abnormality. 2. Minimal left mastoid sinus fluid consistent with maxillary sinusitis. Storm Kam MD on November 17, 2017 at 1:14 Board Certified Radiologist. This report was verified electronically.
[2017-11-17 01:21] LABS: AUTOMATED NEUTROPHIL # 10.6 TH/MM3 (1.8-7.7); BASOPHIL % 0.1 % (0.0-2.0); HEMATOCRIT 33.6 % (39.0-51.0); LYMPHOCYTE # 0.3 TH/MM3 (1.0-4.8); MEAN CELL VOLUME 97.5 FL (80.0-100.0); MEAN CORPUSCULAR HEMOGLOBIN 31.9 PG (27.0-34.0); MEAN CORPUSCULAR HGB CONC 32.7 % (32.0-36.0); MEAN PLATELET VOLUME 7.7 FL (7.0-11.0); MONO % 5.8 % (0.0-8.0); MONOCYTE # 0.7 TH/MM3 (0-0.9); NEUT % 91.1 % (16.0-70.0); PLATELET COUNT 297 TH/MM3 (150-450); RED BLOOD COUNT 3.44 MIL/MM3 (4.50-5.90); RED CELL DISTRIBUTION WIDTH 16.7 % (11.6-17.2); WHITE BLOOD COUNT 11.6 TH/MM3 (4.0-11.0)
--- NOTE | 2017-11-17 01:36 | RADRPT ---
EXAM DATE/TIME: 11/17/2017 01:12 [facility] COMPARISON: No previous studies available for comparison. INDICATIONS : Altered mental status, psych evaluation, wheezing. MEDICAL HISTORY : Non-responsive. SURGICAL HISTORY : Non-responsive. ENCOUNTER: Initial ACUITY: 1 day PAIN SCORE: Non-responsive. LOCATION: Bilateral chest FINDINGS: Lungs are hyperexpanded with diffuse interstitial prominence. Minimal blunting of the posterior costo phrenic angles bilaterally. Cardiomediastinal contours are within normal limits. Cement augmentation changes at L2. Increased thoracic kyphosis with mild compression deformities of the midthoracic spine . CONCLUSION: 1. Changes of obstructive pulmonary disease with minimal blunting of the posterior costophrenic angle s bilaterally which may reflect pleural thickening versus subtle pleural effusions. 2. Status post L2 cement augmentation with mild compression deformities of the midthoracic spine. Storm Kam MD on November 17, 2017 at 1:32 Board Certified Radiologist. This report was verified electronically.
[2017-11-17 01:39] LABS: ALBUMIN 3.4 GM/DL (3.4-5.0); ALT (GPT) 20 U/L (12-78); AST (GOT) 31 U/L (15-37); BICARBONATE 29.8 MEQ/L (21.0-32.0); BLOOD UREA NITROGEN 28 MG/DL (7-18); CALCIUM 8.7 MG/DL (8.5-10.1); CHLORIDE 98 MEQ/L (98-107); CREATININE 0.96 MG/DL (0.60-1.30); GLOMERULAR FILTRATION RATE 77 ML/MIN (>89); GLUCOSE,RANDOM 144 MG/DL (74-106); SODIUM (NA) 135 MEQ/L (136-145)
[2017-11-17 01:41] LABS: ALKALINE PHOSPHATASE 78 U/L (45-117); TOTAL BILIRUBIN ADULT 0.4 MG/DL (0.2-1.0); TOTAL PROTEIN 7.7 GM/DL (6.4-8.2)
[2017-11-17] MEDS: RESP: ALBUTEROL 2.5 MG/IPRATROPIUM 0.5 MG NEB (SCH) INH (01:59)
[2017-11-17 02:27] LABS: BILIRUBIN, URINE NEG (NEG); BLOOD, URINE SMALL (NEG); GLUCOSE,URINE NEG (NEG); HYALINE CAST, URINE 23 /lpf (RARE); KETONE, URINE NEG (NEG); MUCUS URINE FEW /lpf (OCC); NITRITE,URINE NEG (NEG); PH, URINE 5.5 (5.0-8.5); SQUAMOUS EPITHELIAL CELL URINE 1 /hpf (0-5); URINE COLOR YELLOW (YELLW/STRAW); URINE LEUKOCYTE ESTERASE NEG (NEG)
[2017-11-17] MEDS ORDERED: SODIUM CHLOR 0.9% 1000 ML INJ 1,000 ML IV ONE (02:45)
[2017-11-17] MEDS ORDERED: GADODIAMIDE PF 287 MG/ML 10 ML VIAL (for RAD MRI) IVCONTRAST ONE (02:57)
[2017-11-17] MEDS ORDERED: SODIUM CHLORIDE 0.9% FLUSH 10 ML FLUSH IV FLUSH PRN (03:00)
[2017-11-17] MEDS ORDERED: NALOXONE HCL 0.4 MG/ML AMP IV PUSH PRN (03:00)
[2017-11-17] MEDS ORDERED: RESP: ALBUTEROL 2.5 MG/IPRATROPIUM 0.5 MG NEB (PRN) NEB (03:00)
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
[2017-11-17] MEDS: RESP: ALBUTEROL 2.5 MG/IPRATROPIUM 0.5 MG NEB (SCH) NEB ×4 (04:22→19:49)
[2017-11-17] MEDS ORDERED: MAGNESIUM HYDROXIDE SUSP 30 ML CUP PO PRN (05:15)
[2017-11-17] MEDS ORDERED: SENNOSIDES 8.6 MG TAB PO PRN (05:15)
[2017-11-17] MEDS ORDERED: ACETAMINOPHEN 325 MG TAB PO PRN (05:15)
[2017-11-17] MEDS ORDERED: ENALAPRILAT 1.25 MG/ML VIAL IV PUSH PRN (05:15)
[2017-11-17] MEDS ORDERED: ONDANSETRON HCL 4 MG/2 ML VIAL IVP PRN (05:15)
[2017-11-17] MEDS: methylPREDNISolone SOD SUCC 40 MG/1 ML VIAL IV PUSH SCH ×3 (05:44→23:31)
--- NOTE | 2017-11-17 08:03 | EKG ---
Date Performed: 11/17/2017 Time Performed: 01:29:06 PTAGE: 72 years EKG: Sinus rhythm SEPTAL MYOCARDIAL INFARCTION ABNORMAL ECG No significant change from prior electrocardiogram. PREVIOUS TRACING : 11/14/2017 19.16 DOCTOR: Oc Alcaraz Interpretating Date/Time 11/17/2017 08:03:14
[2017-11-17] MEDS: SODIUM CHLORIDE 0.9% FLUSH 10 ML FLUSH IV FLUSH SCH ×2 (09:39→23:31)
[2017-11-17] MEDS: FAMOTIDINE 20 MG TAB PO SCH ×2 (09:39→23:31)
[2017-11-17] MEDS: LISINOPRIL 10 MG TAB PO SCH (09:41)
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
--- NOTE | 2017-11-17 13:45 | RADRPT ---
EXAM DATE/TIME: 11/17/2017 11:31 [facility] COMPARISON: CHEST PA & LAT, November 17, 2017, 1:12. CT BRAIN W/O CONTRAST, November 17, 2017, 0:55. INDICATIONS : Metastatic disease. CONTRAST: 10 cc Omniscan (gadodiamide) IV MEDICAL HISTORY : Hypertension. SURGICAL HISTORY : Kyphoplasty. ENCOUNTER: Initial ACUITY: 1 day PAIN SCORE: 0/10 LOCATION: cranial TECHNIQUE: Multiplanar, multisequence MRI of the brain was performed both prior to and following the administrat ion of paramagnetic contrast. FINDINGS: CEREBRUM: The ventricles are normal for age. No evidence of midline shift, mass lesion, hemorrhage or acute in farction. No extraaxial fluid collections are seen. The pituitary gland and suprasellar cistern are normal in configuration. WHITE MATTER: No significant signal abnormalities are seen in the white matter. POSTERIOR FOSSA: The cerebellum and brainstem are intact. The 4th ventricle is midline. The cerebellopontine angle is unremarkable. The cerebellar tonsils are normal in position. DIFFUSION IMAGING: No focal areas of restricted diffusion are seen. No evidence of acute infarction. EXTRACRANIAL: The visualized portions of the orbits are normal and paranasal sinuses demonstrate minimal fluid in l eft maxillary sinus. POST-CONTRAST: No abnormal areas of parenchymal or dural enhancement. No evidence of blood-brain barrier breakdown. CONCLUSION: Normal examination for a patient of this age. No evidence of mass or metastatic disease. Minimal fluid in the left maxillary sinus. Jarad Tucker MD on November 17, 2017 at 13:38 Board Certified Radiologist. This report was verified electronically.
--- NOTE | 2017-11-17 13:47 | HHI.PR ---
Subjective Remarks Follow up on patient with AECOPD, AMS. Patient seen and examined. Patient is very confused. He is unable to give any significant history. He is extremely hard of hearing. Discussed with nursing staff, no acute issues noted. He is afebrile. VSS. Objective Vitals Vital Signs Date Time Temp Pulse Resp B/P (MAP) Pulse Ox O2 Delivery O2 Flow Rate FiO2 11/17/17 13:31 11/17/17 08:07 94 Nasal Cannula 2.00 11/17/17 07:33 89 15 135/63 (87) 96 Nasal Cannula 2.00 11/17/17 05:00 98 18 140/63 (88) 97 Nasal Cannula 2.00 11/17/17 02:59 90 16 184/82 (116) 96 Nasal Cannula 2.00 11/17/17 01:59 95 Nasal Cannula 2.00 11/17/17 01:01 94 Nasal Cannula 2.00 11/17/17 00:48 98.7 103 20 175/84 (114) 93 I/O 11/16/17 11/16/17 11/16/17 11/17/17 11/17/17 11/17/17 07:00 15:00 23:00 07:00 15:00 23:00 Intake Total 1000 ml Balance 1000 ml Intake IV Total 1000 ml # Voids 1 Result Diagram: 11/17/17 0100 11/17/1799 Imaging Last Impressions Head CT 11/17/1748 Signed Impressions: Service Date/Time: Friday, November 17, 2017 00:55 - CONCLUSION: 1. Senescent changes without acute intracranial abnormality. 2. Minimal left mastoid sinus fluid consistent with maxillary sinusitis. Storm Kam MD Chest X-Ray 11/17/1748 Signed Impressions: Service Date/Time: Friday, November 17, 2017 01:12 - CONCLUSION: 1. Changes of obstructive pulmonary disease with minimal blunting of the posterior costophrenic angles bilaterally which may reflect pleural thickening versus subtle pleural effusions. 2. Status post L2 cement augmentation with mild compression deformities of the midthoracic spine. Storm Kam MD Objective Remarks GENERAL: This is a thin, unkempt patient, extremely thin malnourished male patient, INAD. He appears comfortable. Sitting up in bed eating lunch. SKIN: No rashes, ecchymoses or lesions. Cool and dry. HEAD: Atraumatic. Normocephalic. EYES: Pupils equal round and reactive. Sclera anicteric. ENT: Nose without bleeding or purulent drainage. Airway patent. MMM. NECK: Trachea midline. CARDIOVASCULAR: Regular rate and rhythm without murmurs, gallops, or rubs. RESPIRATORY: Coarse BS. Scattered wheezes throughout, no rales, or rhonchi. GASTROINTESTINAL: Abdomen soft, non-tender, nondistended. No guarding. MUSCULOSKELETAL: Extremities without clubbing, cyanosis, or edema. No calf tenderness. NEUROLOGICAL: Awake and alert. Able to move all extremities spontaneously. Motor and sensory grossly within normal limits. Hard of hearing. PSYCHIATRIC: Inappropriate insight and judgement. Medications and IVs Current Medications Medications (Trade) Dose Ordered Sig/Dayana Route Start Time Stop Time Status Last Admin (NS Flush) 2 ml UNSCH PRN IV FLUSH 11/17/17 03:00 (NS Flush) 2 ml BID IV FLUSH 11/17/17 09:00 11/17/17 09:39 (Narcan Inj) 0.4 mg UNSCH PRN IV PUSH 11/17/17 03:00 (Duoneb Neb) 1 ampule Q6HR NEB NEB 11/17/17 04:00 11/17/17 08:07 (Duoneb Neb) 1 ampule Q2HR NEB PRN NEB 11/17/17 03:00 (SoluMEDROL INJ) 40 mg Q6HR IV PUSH 11/17/17 06:00 11/17/17 12:54 (Pepcid) 20 mg Q12HR PO 11/17/17 09:00 11/17/17 09:39 (Tylenol) 650 mg Q4H PRN PO 11/17/17 05:15 (Zofran Inj) 4 mg Q6H PRN IVP 11/17/17 05:15 (Milk Of Magnesia Liq) 30 ml Q12H PRN PO 11/17/17 05:15 (Senokot) 17.2 mg Q12H PRN PO 11/17/17 05:15 (Vasotec Inj) 1.25 mg Q6H PRN IV PUSH 11/17/17 05:15 (Prinivil) 10 mg DAILY PO 11/17/17 09:00 11/17/17 09:41 A/P Problem List: (1) COPD exacerbation ICD Code: J44.1 - Chronic obstructive pulmonary disease with (acute) exacerbation (2) Hypoxia ICD Code: R09.02 - Hypoxemia Assessment and Plan 72 y/o male with a history of lung cancer, chronic back pain, anemia, bph, cad, copd, depression, htn, hld, opioid dependency and cva was brought to the ED under a cardenas act. COPD exacerbation with hypoxia patient found to have an O2 sat of 88 on room air Hx of lung cancer Chest x-ray reviewed and shows changes of obstructive pulmonary disease with minimal blunting posterior costophrenic angles bilaterally. -Solu-Medrol IV -Duonebs scheduled -Symbicort 2 puffs BID -continue to monitor respiratory status and give supplemental oxygen to maintain O2 sats above 92% -Patient will need to walk just prior to discharge Cardenas act, brought in by police after being found confused in a car AMS/encephalopathy Polysubstance abuse, opioid dependency Head CT reviewed and negative -Secondary to copd exacerbation and hypoxia -UDS positive for opiates and benzodiazepines -avoid all sedating medications -Psychiatry following, appreciate recommendations -given hx of lung ca and AMS, obtain MRI brain -EEG and carotid dopplers ordered -obtain TSH, A1c, RPR and B12 -fall and seizure precautions Physical deconditioning Malnourished -Consult talkback host -PT eval and treat Hypertension, chronic -controlled -Lisinopril 10 mg by mouth daily ordered -Vasotec when necessary Hx of CVA - ASA daily DVT prophylaxis: Tran Johnson Nov 17, 2017 13:47
[2017-11-17] MEDS ORDERED: GLUCAGON 1 MG/ML VIAL OTHER PRN (15:15)
[2017-11-17] MEDS ORDERED: DEXTROSE 50% IN WATER 50 ML VIAL(D50) IV PUSH PRN (15:15)
[2017-11-17] MEDS: ASPIRIN EC 81 MG TABEC PO SCH (15:15)
[2017-11-17 16:25] LABS: MAGNESIUM 2.2 MG/DL (1.5-2.5); PHOSPHORUS 2.9 MG/DL (2.5-4.9)
[2017-11-17 17:54] LABS: HEMOGLOBIN A1C 6.1 % (4.3-6.0)
[2017-11-17] MEDS: INSULIN ASPART SUPPLEMENTAL SCALE SQ SCH ×2 (18:22→23:32)
--- NOTE | 2017-11-17 20:52 | RADRPT ---
EXAM DATE/TIME: 11/17/2017 15:23 [facility] COMPARISON: No previous studies available for comparison. INDICATIONS : Cerebrovascular accident. MEDICAL HISTORY : Chronic obstructive pulmonary disease. Hypercholesterolemia. Hypertension. Hearing loss. Ulcer. Lung cancer. Chemotherapy. Arthritis. Kyphosis. Back pain. SURGICAL HISTORY : Bilateral ear surgery. Ulcer repair. Lung lobectomy. Mesenteric aneurysm repair. Kyphoplasty. ENCOUNTER: Initial ACUITY: 1 day PAIN SCORE: 0/10 LOCATION: Bilateral neck PEAK SYSTOLIC VELOCITIES (cm/sec): ICA/CCA RATIO: Right: 1.0 Left: 0.7 ICA: Right: 99.7 Left: 84.2 CCA: Right: 117.3 Left: 115.6 ECA: Right: 105.6 Left: 53.4 VERTEBRAL: Right: 95.7 antegrade Left: 63.3 antegrade Elevated flow velocities and ICA/CCA ratios have been found to correlate with increased degrees of vessel stenosis, calculated as percentage of diameter relative to a normal segment of distal ICA/CCA FINDINGS: RIGHT CAROTID: Calcified and noncalcified atheromatous plaque involving the carotid bulb and proximal ICA. No signif icant luminal narrowing observed by Freeman scale analysis. ICA waveform is normal. LEFT CAROTID: Mild scattered atheromatous plaque throughout the common carotid artery and proximal ICA. No luminal narrowing by grayscale analysis. ICA waveform is normal. VERTEBRAL ARTERIES: Antegrade flow is seen in both vertebral arteries. MISCELLANEOUS: None. CONCLUSION: 1. Atherosclerotic plaque bilaterally without hemodynamically significant stenosis involving either c arotid artery. 2. Antegrade flow involving both vertebral arteries. Efrain Orr Jr., MD on November 17, 2017 at 20:47 Board Certified Radiologist. This report was verified electronically.
[2017-11-17] MEDS ORDERED: BENZONATATE 100 MG CAP PO ONE (23:00)
[2017-11-17] MEDS: BUDESONIDE-FORMOTEROL 160/4.5 MCG INHALER INH SCH (23:30)
[2017-11-18] VITALS (9 sets, daily range): BP systolic 120–158; BP diastolic 60–76; PULSE 56–90; RESP 18–20; TEMP 97.8–98; O2SAT 95–98
[2017-11-18] MEDS ORDERED: clonazePAM 1 MG TAB PO ONE (00:15)
[2017-11-18] MEDS: methylPREDNISolone SOD SUCC 40 MG/1 ML VIAL IV PUSH SCH (05:37)
[2017-11-18 06:36] LABS: CALCIUM 9.1 MG/DL (8.5-10.1); CREATININE 0.62 MG/DL (0.60-1.30)
[2017-11-18 06:45] LABS: AUTOMATED NEUTROPHIL # 13.9 TH/MM3 (1.8-7.7); BASOPHIL % 0.1 % (0.0-2.0); EOSINOPHIL % 0.1 % (0.0-4.0); HEMATOCRIT 32.3 % (39.0-51.0); HEMOGLOBIN 10.6 GM/DL (13.0-17.0); LYMPH % 2.6 % (9.0-44.0); LYMPHOCYTE # 0.4 TH/MM3 (1.0-4.8); MEAN CELL VOLUME 97.6 FL (80.0-100.0); MEAN CORPUSCULAR HEMOGLOBIN 32.1 PG (27.0-34.0); MEAN CORPUSCULAR HGB CONC 32.9 % (32.0-36.0); MEAN PLATELET VOLUME 7.8 FL (7.0-11.0); MONO % 2.7 % (0.0-8.0); MONOCYTE # 0.4 TH/MM3 (0-0.9); NEUT % 94.5 % (16.0-70.0); PLATELET COUNT 253 TH/MM3 (150-450); RED BLOOD COUNT 3.31 MIL/MM3 (4.50-5.90); RED CELL DISTRIBUTION WIDTH 16.7 % (11.6-17.2); WHITE BLOOD COUNT 14.7 TH/MM3 (4.0-11.0)
[2017-11-18] MEDS: RESP: ALBUTEROL 2.5 MG/IPRATROPIUM 0.5 MG NEB (SCH) NEB ×3 (08:00→15:56)
[2017-11-18] MEDS ORDERED: MULTIVITAMIN TAB PO SCH (09:00)
[2017-11-18] MEDS ORDERED: CYANOCOBALAMIN 1000 MCG/ML VIAL IM ONE (09:00)
[2017-11-18] MEDS: BUDESONIDE-FORMOTEROL 160/4.5 MCG INHALER INH SCH (09:37)
[2017-11-18] MEDS: INSULIN ASPART SUPPLEMENTAL SCALE SQ SCH ×2 (09:38→13:01)
[2017-11-18] MEDS: ASPIRIN EC 81 MG TABEC PO SCH (09:39)
[2017-11-18] MEDS: FAMOTIDINE 20 MG TAB PO SCH (09:39)
[2017-11-18] MEDS: SODIUM CHLORIDE 0.9% FLUSH 10 ML FLUSH IV FLUSH SCH (09:39)
[2017-11-18] MEDS: LISINOPRIL 10 MG TAB PO SCH (09:40)
[2017-11-18] MEDS ORDERED: guaiFENesin E.R. 600 MG TAB PO SCH (12:00)
[2017-11-18] MEDS ORDERED: AZITHROMYCIN 250 MG TAB PO ONE (12:00)
[2017-11-18] MEDS ORDERED: ECASA81 PO (16:34)
[2017-11-18] MEDS ORDERED: PRED20 PO (16:34)
[2017-11-18] MEDS ORDERED: guaiFENesin ER PO (16:34)
[2017-11-18] MEDS ORDERED: AZIT250T3 PO (16:34)
[2017-11-18] MEDS ORDERED: LISI10TA3 PO (16:34)
[2017-11-18] MEDS ORDERED: Budeson-Formot 160-4.5 Mcg Inh INH (16:34)
[2017-11-18] MEDS ORDERED: THERTAB15 PO (16:34)
[2017-11-18] MEDS ORDERED: THIA100 PO (16:34)
--- NOTE | 2017-11-18 16:43 | HHI.PR ---
Subjective Remarks Feels a little improved denies cpp. SOB improved says he wants to go home. No n/ v/d/c. Objective Vitals Vital Signs Date Time Temp Pulse Resp B/P (MAP) Pulse Ox O2 Delivery O2 Flow Rate FiO2 11/18/17 16:15 98.0 68 18 122/60 (80) 96 11/18/17 12:27 97.9 90 20 128/63 (84) 96 11/18/17 11:59 87 11/18/17 08:04 97.8 68 20 122/60 (80) 95 11/18/17 07:56 68 11/18/17 06:36 81 18 120/61 (80) 97 11/18/17 05:40 97.8 82 20 158/76 (103) 98 11/18/17 04:49 56 11/18/17 00:06 75 11/17/17 23:57 98.7 79 18 142/62 (88) 93 11/17/17 21:30 94 Nasal Cannula 2.00 11/17/17 20:01 82 11/17/17 19:49 94 Nasal Cannula 2.00 11/17/17 19:47 98.4 85 18 133/63 (86) 94 11/17/17 18:35 64 I/O 11/17/17 11/17/17 11/17/17 11/18/17 11/18/17 11/18/17 06:59 14:59 22:59 06:59 14:59 22:59 Intake Total 1000 ml 100 ml Balance 1000 ml 100 ml Intake Oral 100 ml IV Total 1000 ml # Voids 1 1 Result Diagram: 11/18/17 0610 11/18/17 06 Imaging Last Impressions Head CT 11/17/1748 Signed Impressions: Service Date/Time: Friday, November 17, 2017 00:55 - CONCLUSION: 1. Senescent changes without acute intracranial abnormality. 2. Minimal left mastoid sinus fluid consistent with maxillary sinusitis. Storm Kam MD Chest X-Ray 11/17/1748 Signed Impressions: Service Date/Time: Friday, November 17, 2017 01:12 - CONCLUSION: 1. Changes of obstructive pulmonary disease with minimal blunting of the posterior costophrenic angles bilaterally which may reflect pleural thickening versus subtle pleural effusions. 2. Status post L2 cement augmentation with mild compression deformities of the midthoracic spine. Storm Kam MD Carotid Artery Ultrasound 11/17/17 0000 Signed Impressions: Service Date/Time: Friday, November 17, 2017 15:23 - CONCLUSION: 1. Atherosclerotic plaque bilaterally without hemodynamically significant stenosis involving either carotid artery. 2. Antegrade flow involving both vertebral arteries. Efrain Orr Jr., MD Brain MRI 11/17/17 0000 Signed Impressions: Service Date/Time: Friday, November 17, 2017 11:31 - CONCLUSION: Normal examination for a patient of this age. No evidence of mass or metastatic disease. Minimal fluid in the left maxillary sinus. Jarad Tucker MD Objective Remarks GENERAL: This is a thin, unkempt patient, extremely thin malnourished male patient, INAD. He appears comfortable. Sitting up in bed eating lunch. CARDIOVASCULAR: Regular rate and rhythm without murmurs, gallops, or rubs. RESPIRATORY: Coarse BS. Scattered wheezes throughout, no rales, or rhonchi. GASTROINTESTINAL: Abdomen soft, non-tender, nondistended. No guarding. MUSCULOSKELETAL: Extremities without clubbing, cyanosis, or edema. No calf tenderness. NEUROLOGICAL: Awake and alert. Able to move all extremities spontaneously. Motor and sensory grossly within normal limits. Hard of hearing. PSYCHIATRIC: Inappropriate insight and judgement. A/P Problem List: (1) COPD exacerbation ICD Code: J44.1 - Chronic obstructive pulmonary disease with (acute) exacerbation (2) Hypoxia ICD Code: R09.02 - Hypoxemia Assessment and Plan 72 y/o male with a history of lung cancer, chronic back pain, anemia, bph, cad, copd, depression, htn, hld, opioid dependency and cva was brought to the ED under a cardenas act. COPD exacerbation with hypoxia patient found to have an O2 sat of 88 on room air Hx of lung cancer Chest x-ray reviewed and shows changes of obstructive pulmonary disease with minimal blunting posterior costophrenic angles bilaterally. -Solu-Medrol IV, tapered switched now to PO -Duonebs scheduled -Symbicort 2 puffs BID -continue to monitor respiratory status and give supplemental oxygen to maintain O2 sats above 92%. -PT recommends rehab Cardenas act, brought in by police after being found confused in a car. DC to psych AMS/encephalopathy Polysubstance abuse, opioid dependency Head CT reviewed and negative -Secondary to copd exacerbation and hypoxia -UDS positive for opiates and benzodiazepines -avoid all sedating medications -Psychiatry following, appreciate recommendations -given hx of lung ca and AMS, obtain MRI brain -EEG and carotid dopplers ordered -obtain TSH, A1c, RPR and B12 -fall and seizure precautions Physical deconditioning Malnourished -Consult preschool teacher -PT eval and treat Hypertension, chronic -controlled -Lisinopril 10 mg by mouth daily ordered -Vasotec when necessary Hx of CVA - ASA daily DVT prophylaxis: SCDs Improving stable to dc to psych unit from medical standpoint Discharge Planning DC to inpatient psych to follow up as OP with PCP and consultants Diet regular as tolerated Activity ad zaynab as tolerated Meds per meds reconciliations DC time> 30 min Tashia Smith MD Nov 18, 2017 16:43
[2017-11-19] MEDS ORDERED: predniSONE 20 MG TAB PO SCH (09:00)
[2017-11-19] MEDS ORDERED: THIAMINE HCL 100 MG TAB PO SCH (09:00)
[2017-11-19] MEDS ORDERED: AZITHROMYCIN 250 MG TAB PO SCH (12:00)
--- NOTE | 2017-11-20 08:12 | MG ---
cc: FENG DANIEL M.D. Lab No: [id number] Date: 11/19/2017 Age: Sex: M Race: Dizziness, headache, carotid artery stenosis, endarterectomy. Deltasone. Some diffuse 6 Hz slowing is seen. A lot of bitemporal muscle artifact is noted. A little bit more prominent slowing is seen on the left hemisphere than the right, but it is bilateral slowing. A lot of times the temporal leads in too much artifact to tell. He had some eye fluttering, did not correlate with any seizure activity. IMPRESSION Some bilateral slowing, at times a little bit more prominent on the left than the right. Left hemisphere lesion could be ruled out. No epileptiform or seizure activity is seen. MD BRYAN Rojas/TLL /7:56 PM /8:04 AM
== END 2017-11-18 17:44 | DRG 190 ==
LOC: NEPD 00:34 → NEDA 02:56 → NEPHCDU 13:14 → OBSVTOIN 11-18 15:09
PROVIDERS: ADMIT Hospitalist; ATTEND Hospitalist
DX: J44.1 Chronic obstructive pulmonary disease with (acute) exacerbation (principal); G93.40 Encephalopathy, unspecified; E46 Unspecified protein-calorie malnutrition; F05 Delirium due to known physiological condition; F11.20 Opioid dependence, uncomplicated; Z68.1 Body mass index [BMI] 19.9 or less, adult; I10 Essential (primary) hypertension; I25.10 Atherosclerotic heart disease of native coronary artery without angina pectoris; N40.0 Benign prostatic hyperplasia without lower urinary tract symptoms; R09.02 Hypoxemia; E78.5 Hyperlipidemia, unspecified; M54.9 Dorsalgia, unspecified; G89.29 Other chronic pain; F32.9 Major depressive disorder, single episode, unspecified; H91.90 Unspecified hearing loss, unspecified ear; I73.9 Peripheral vascular disease, unspecified; M40.204 Unspecified kyphosis, thoracic region; F17.210 Nicotine dependence, cigarettes, uncomplicated; M19.90 Unspecified osteoarthritis, unspecified site; F41.9 Anxiety disorder, unspecified; I65.29 Occlusion and stenosis of unspecified carotid artery; Z86.73 Personal history of transient ischemic attack (TIA), and cerebral infarction without residual deficits; Z85.118 Personal history of other malignant neoplasm of bronchus and lung; Z95.1 Presence of aortocoronary bypass graft
CPT/HCPCS: 70450; 70553; 71046; 80048; 80053; 80307; 81001; 82607; 82948; 83036; 83735; 84100; 84134; 84443; 85025; 86592; 93005; 93880; 94618; 94640; 94664; 95819; 96361; 96372; 96374; 96376; A9579; G0378; J1815; J2920; J3420; J7030; J7512

== ENCOUNTER 2017-11-18 17:48 | Inpatient (IN) | payer MEDICARE, MEDICAID, OTHER ==
[~2017-11-18] VITALS: Ht 160 cm; Wt 75.5 kg
[~2017-11-18 17:48] MED LIST changes: +AZIT250T3 PO; +Budeson-Formot 160-4.5 Mcg Inh INH; -CLON1TAB PO; +ECASA81 PO; -HYDR-3516 PO; -NAPR500T2 PO; +PRED20 PO; -PROS5TAB PO; -TAMS0.4C4 PO; +THERTAB15 PO; +THIA100 PO; -TYLETAB34 PO; +guaiFENesin ER PO
[2017-11-18 18:12] VITALS: BP 178/76; PULSE 94; RESP 16; O2SAT 94
[2017-11-18] MEDS ORDERED: ALUMINUM/MAGNESIUM/SIMETH 30 ML CUP PO PRN (19:30)
[2017-11-18] MEDS ORDERED: LORazepam 2 MG/ML VIAL IM PRN ×2 (19:30)
[2017-11-18] MEDS ORDERED: MAGNESIUM HYDROXIDE SUSP 30 ML CUP PO PRN (19:30)
[2017-11-18] MEDS ORDERED: LORazepam 1 MG TAB PO PRN (19:30)
[2017-11-18] MEDS: ASPIRIN EC 81 MG TABEC PO SCH (20:00)
[2017-11-18] MEDS: LISINOPRIL 10 MG TAB PO SCH (20:00)
[2017-11-18] MEDS: LORazepam 0.5 MG TAB PO PRN (20:22)
[2017-11-18] MEDS: BUDESONIDE-FORMOTEROL 160/4.5 MCG INHALER INH SCH (20:38)
[2017-11-18] MEDS: guaiFENesin E.R. 600 MG TAB PO SCH (20:38)
[2017-11-18] MEDS: REMOVE OLD NICODERM (NICOTINE) PATCH T-DERMAL SCH (20:47)
[2017-11-18] MEDS ORDERED: HALOPERIDOL LACTATE 5 MG/ML AMP ONE (23:36)
[2017-11-19] MEDS: ACETAMINOPHEN 325 MG TAB PO PRN ×2 (02:14→15:36)
[2017-11-19 05:05] VITALS: BP 149/66; PULSE 68; RESP 20; TEMP 97.4; O2SAT 96
[2017-11-19 05:34] LABS: BICARBONATE 28.4 MEQ/L (21.0-32.0); BLOOD UREA NITROGEN 31 MG/DL (7-18); CALCIUM 8.6 MG/DL (8.5-10.1); CHLORIDE 102 MEQ/L (98-107); GLOMERULAR FILTRATION RATE 111 ML/MIN (>89); GLUCOSE,RANDOM 189 MG/DL (74-106); SODIUM (NA) 136 MEQ/L (136-145)
[2017-11-19 05:36] LABS: CHOLESTEROL 119 MG/DL (120-200); TRIGLYCERIDES 88 MG/DL (42-150)
[2017-11-19 05:37] LABS: LDL CHOLESTEROL 79 MG/DL (0-99)
[2017-11-19] MEDS: BUDESONIDE-FORMOTEROL 160/4.5 MCG INHALER INH SCH ×2 (06:24→21:00)
[2017-11-19] MEDS: MULTIVITAMIN TAB PO SCH (08:26)
[2017-11-19] MEDS: LORazepam 0.5 MG TAB PO PRN ×2 (08:26→20:00)
[2017-11-19] MEDS: ASPIRIN EC 81 MG TABEC PO SCH (08:26)
[2017-11-19] MEDS: guaiFENesin E.R. 600 MG TAB PO SCH ×2 (08:26→21:00)
[2017-11-19] MEDS: LISINOPRIL 10 MG TAB PO SCH (08:27)
[2017-11-19] MEDS: THIAMINE HCL 100 MG TAB PO SCH (08:27)
[2017-11-19] MEDS: NICOTINE 21 MG/24 HR PATCH T-DERMAL SCH (08:28)
[2017-11-19] MEDS ORDERED: predniSONE 20 MG TAB PO SCH (09:00)
[2017-11-19] MEDS ORDERED: HALOPERIDOL LACTATE 5 MG/ML AMP IM ONE (11:30)
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
[2017-11-19] MEDS: QUEtiapine FUMARATE 25 MG TAB PO SCH ×2 (11:40→21:00)
[2017-11-19 12:35] LABS: HEMOGLOBIN A1C 6.3 % (4.3-6.0)
[2017-11-19 13:03] VITALS: PULSE 87; RESP 16; O2SAT 94
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
[2017-11-19] MEDS ORDERED: CYANOCOBALAMIN 1000 MCG/ML VIAL IM ONE (16:00)
[2017-11-19 17:10] VITALS: O2SAT 96
[2017-11-19 17:27] VITALS: BP 187/79; PULSE 83; RESP 16; TEMP 97.9; O2SAT 96
[2017-11-19] MEDS: cloNIDine HCL 0.1 MG TAB PO PRN (17:38)
[2017-11-19] MEDS: REMOVE OLD NICODERM (NICOTINE) PATCH T-DERMAL SCH (21:00)
[2017-11-19] MEDS ORDERED: OLANZapine IM 10 MG VIAL IM ONE (22:45)
[2017-11-20 03:55] VITALS: O2SAT 93
[2017-11-20] MEDS: RESP: ALBUTEROL 2.5 MG/IPRATROPIUM 0.5 MG NEB (PRN) NEB ×2 (03:55→14:20)
[2017-11-20 04:39] VITALS: BP 197/89; PULSE 103; RESP 18; TEMP 97.8; O2SAT 95
[2017-11-20] MEDS: cloNIDine HCL 0.1 MG TAB PO PRN (06:15)
[2017-11-20] MEDS: NICOTINE 21 MG/24 HR PATCH T-DERMAL SCH ×2 (09:00→09:43)
[2017-11-20] MEDS: QUEtiapine FUMARATE 25 MG TAB PO SCH (09:00)
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
[2017-11-20] MEDS: BUDESONIDE-FORMOTEROL 160/4.5 MCG INHALER INH SCH ×2 (09:43→20:37)
[2017-11-20] MEDS: THIAMINE HCL 100 MG TAB PO SCH (09:44)
[2017-11-20] MEDS: guaiFENesin E.R. 600 MG TAB PO SCH ×2 (09:44→20:37)
[2017-11-20] MEDS: predniSONE 20 MG TAB PO SCH (09:44)
[2017-11-20] MEDS: LISINOPRIL 10 MG TAB PO SCH (09:44)
[2017-11-20] MEDS: MULTIVITAMIN TAB PO SCH (09:44)
[2017-11-20] MEDS: ASPIRIN EC 81 MG TABEC PO SCH (09:44)
--- NOTE | 2017-11-20 10:23 | HHI.PR ---
Subjective Remarks hard of hearing does not want to talk, asking me to leave him alone, even when his nurse is present but was able to say yes when asked if his pcp is Dr Kramer other than that, no specific answers from him- nursing reports no acute medical issues overnight Objective Vitals Vital Signs Date Time Temp Pulse Resp B/P (MAP) Pulse Ox O2 Delivery O2 Flow Rate FiO2 11/20/17 04:39 97.8 103 18 197/89 (125) 95 11/20/17 03:55 93 21 11/19/17 17:27 97.9 83 16 187/79 (115) 96 11/19/17 17:10 96 Nasal Cannula 2.00 11/19/17 13:03 87 16 94 I/O 11/19/17 11/19/17 11/19/17 11/20/17 11/20/17 11/20/17 07:00 15:00 23:00 07:00 15:00 23:00 Intake Total 480 ml 360 ml 240 ml 240 ml Output Total 0 ml Balance 480 ml 360 ml 240 ml 0 ml 240 ml Intake Oral 480 ml 360 ml 240 ml 240 ml Output Stool Total 0 ml # Voids 2 2 5 # Bowel Movements 0 Result Diagram: 11/19/17 0434 Objective Remarks thin cachetic elderly with temporal wasting lung sounds with expiratory wheezing A/P Assessment and Plan hypoxia copd exacerbation hx of lung ca in 2010- s/p sx and chemo per notes L2 kyphoplasty in 03/2017- bone biopsy showing ??? positive benzos and opiates on admission - likely due to home meds in cancer patient- NOT abuse elevated BP- likely from not getting his home meds- will need to check - clonidine prn can give rebound htn o2 supplemet walk test nebs prn prednisone being taperd leukocytosis due to steroid use watch for fevers call pt's pcp and pharmacy and obtain further med list and hx suspects pt is on benzos and opiates at home- reviewed OR notes and HP on 2016 admission- he was on clonazepam, restroil, opiates need to verify - and watch for withdrawals in hospital palliative care consult to clarify goals of care Bebeto Mercado MD Nov 20, 2017 10:23
--- NOTE | 2017-11-20 12:32 | HHI.HCPN ---
Palliative care consulted to assist with goals of care and establishment of a health care decision maker. In review of notes Mr. Velasco is currently under a Cardenas Act. Left message with psychiatric counselor to obtain additional information including Cardenas Act court hearing as this is when the courts will appoint a guardian advocate to serve as a decision maker for the patient. 130pm received call back from psychiatric counselor. Confirms patient is under the Cardenas Act. Staff currently working on getting in touch with patient's sister. Recommend possible accurint report request via case management to determine if sister has additional contact information or identify other family member to contact to obtain psychosocial hx to determine legal health care proxy decision maker. Counselor confirms Cardenas Act court to take place on to appoint guardian advocare to serve as decision maker for patient while under the Cardenas Act. Certainly palliative care will be available to assist with goals of care but would want to make sure treatment for underlying psychiatric disease is maximized and health care decision maker is identified. Palliative care will continue to follow throughout hospitalization. Dayana Orr, PROBLEM MANAGER Nov 20, 2017 12:32
[2017-11-20] MEDS: ACETAMINOPHEN 325 MG TAB PO PRN (13:58)
[2017-11-20 18:00] VITALS: BP 165/83; PULSE 98; RESP 20; TEMP 97.5; O2SAT 97
[2017-11-20] MEDS: REMOVE OLD NICODERM (NICOTINE) PATCH T-DERMAL SCH (20:39)
[2017-11-20] MEDS ORDERED: traZODone HCL 50 MG TAB PO PRN (21:00)
[2017-11-21] MEDS: cloNIDine HCL 0.1 MG TAB PO PRN (05:55)
[2017-11-21 05:56] VITALS: BP 194/76; PULSE 101; RESP 20; TEMP 98.6; O2SAT 95
[2017-11-21] MEDS: ACETAMINOPHEN 325 MG TAB PO PRN ×4 (05:58→16:50)
[2017-11-21] MEDS: MULTIVITAMIN TAB PO SCH (08:44)
[2017-11-21] MEDS: predniSONE 20 MG TAB PO SCH (08:44)
[2017-11-21] MEDS: THIAMINE HCL 100 MG TAB PO SCH (08:44)
[2017-11-21] MEDS: ASPIRIN EC 81 MG TABEC PO SCH (08:45)
[2017-11-21] MEDS: LISINOPRIL 10 MG TAB PO SCH (08:45)
[2017-11-21] MEDS: BUDESONIDE-FORMOTEROL 160/4.5 MCG INHALER INH SCH ×2 (08:45→21:07)
[2017-11-21] MEDS: guaiFENesin E.R. 600 MG TAB PO SCH ×2 (08:45→21:08)
[2017-11-21] MEDS: NICOTINE 21 MG/24 HR PATCH T-DERMAL SCH (08:46)
--- NOTE | 2017-11-21 10:09 | HHI.HCSW ---
Engine Installer Visit Advance Directive Per notes PCP for Mr. Velasco is Dr. Kramer. Spoke with his office ([phone] ) to inquire about advanced directives (living will, health care surrogate, POA for health care). They do not have any directives on file. Provided same name and contact information for sister as on file here. States he reported a brother in [place], [place] but did not provide name or contact information. Reports he was very elusive about information he provided. Sister: Naomi Sanchez #[phone] Ex-: Ayana Santos #[phone]. PCP staff will continue to look for additional information on records and contact palliative SW with any additional information found. . Proposed Soc Wrk Intervention If still unable to get in touch with sister/family. Recommend accurint report request through case management to identify possible other contact information for sister and additional family as we now know he has a brother (name unknown) as well. . Follow Up Visit Certainly palliative care will be available to assist with goals of care but would want to make sure treatment for underlying psychiatric disease is maximized and health care decision maker is identified. Palliative care will continue to follow throughout hospitalization. Dayana Orr, FRENCH POLISHER Nov 21, 2017 10:09
[2017-11-21] MEDS ORDERED: SUBO8MIS SL (10:41)
[2017-11-21] MEDS ORDERED: TRAZ50TA12 PO (10:41)
[2017-11-21] MEDS ORDERED: NALO1TAB PO (10:41)
[2017-11-21] MEDS ORDERED: ALPR0.25 PO (10:41)
[2017-11-21] MEDS ORDERED: RANI150T PO (10:41)
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
[2017-11-21] MEDS ORDERED: DEXTROSE 50% IN WATER 50 ML VIAL(D50) IV PUSH PRN (11:30)
[2017-11-21] MEDS ORDERED: GLUCAGON 1 MG/ML VIAL OTHER PRN (11:30)
--- NOTE | 2017-11-21 11:35 | HHI.PR ---
Subjective Remarks sleeping pleasant but would not wake up to answer questions just nod his head profusely diaphoretic no recorded fever Objective Vitals Vital Signs Date Time Temp Pulse Resp B/P (MAP) Pulse Ox O2 Delivery O2 Flow Rate FiO2 11/21/17 06:58 16 11/21/17 05:56 98.6 101 20 194/76 (115) 95 11/20/17 18:00 97.5 98 20 165/83 (110) 97 I/O 11/20/17 11/20/17 11/20/17 11/21/17 11/21/17 11/21/17 07:00 15:00 23:00 07:00 15:00 23:00 Intake Total 960 ml 120 ml 600 ml 0 ml Output Total 0 ml Balance 0 ml 960 ml 120 ml 600 ml 0 ml Intake Oral 960 ml 120 ml 600 ml 0 ml Output Stool Total 0 ml # Voids 5 5 4 # Bowel Movements 1 Result Diagram: 11/19/17 0434 Objective Remarks thin cachetic elderly with temporal wasting lung sounds with expiratory wheezing A/P Assessment and Plan diaphoretic profusely on exam today- check vitals, temp, monitor for withdrawals hypoxia - mostly resolved, respiratory to monitor spot pulse ox q4hrs copd exacerbation - improved hx of lung ca in 2010- s/p sx and chemo per notes L2 kyphoplasty in 03/2017- bone biopsy showing ??? positive benzos and opiates on admission - likely due to home meds in cancer patient- NOT abuse elevated BP- likely from not getting his home meds- will need to check - clonidine prn can give rebound htn o2 supplemet walk test - pulse ox q4hrs nebs prn prednisone being taperd leukocytosis due to steroid use watch for fevers pts pharmacy was called by his nurse today, and verified on med rec- awaiting on further paperwork from pcp office re comorbidities suspects pt is on benzos and opiates at home- reviewed OR notes and HP on 2016 admission- he was on clonazepam, restroil, opiates - from his pharmacy, he is on suboxone, xanax qhs prn and trazodone watch for withdrawals in hospital (not getting suboxone here, but is on ativan prn) palliative care consult to clarify goals of care- appreciated- notes reviewed Bebeto Mercado MD Nov 21, 2017 11:35
[2017-11-21 12:30] LABS: AUTOMATED NEUTROPHIL # 9.6 TH/MM3 (1.8-7.7); BASOPHIL % 0.2 % (0.0-2.0); HEMATOCRIT 28.4 % (39.0-51.0); HEMOGLOBIN 10.3 GM/DL (13.0-17.0); LYMPH % 3.2 % (9.0-44.0); LYMPHOCYTE # 0.3 TH/MM3 (1.0-4.8); MEAN CORPUSCULAR HEMOGLOBIN 34.8 PG (27.0-34.0); MEAN CORPUSCULAR HGB CONC 36.3 % (32.0-36.0); MEAN PLATELET VOLUME 7.7 FL (7.0-11.0); MONO % 4.9 % (0.0-8.0); MONOCYTE # 0.5 TH/MM3 (0-0.9); NEUT % 91.7 % (16.0-70.0); PLATELET COUNT 501 TH/MM3 (150-450); RED BLOOD COUNT 2.96 MIL/MM3 (4.50-5.90); RED CELL DISTRIBUTION WIDTH 17.1 % (11.6-17.2); WHITE BLOOD COUNT 10.5 TH/MM3 (4.0-11.0)
[2017-11-21 12:43] LABS: ALBUMIN 2.8 GM/DL (3.4-5.0); ALT (GPT) 21 U/L (12-78); AST (GOT) 22 U/L (15-37); BICARBONATE 26.6 MEQ/L (21.0-32.0); BLOOD UREA NITROGEN 22 MG/DL (7-18); CALCIUM 8.6 MG/DL (8.5-10.1); CHLORIDE 108 MEQ/L (98-107); CREATININE 0.51 MG/DL (0.60-1.30); GLOMERULAR FILTRATION RATE 161 ML/MIN (>89); GLUCOSE,RANDOM 134 MG/DL (74-106); INTERNATIONAL NORMALIZED RATIO 1.1 RATIO; PROTHROMBIN TIME - PATIENT 11.5 SEC (9.8-11.6); SODIUM (NA) 142 MEQ/L (136-145)
[2017-11-21 12:50] LABS: ALKALINE PHOSPHATASE 72 U/L (45-117); TOTAL BILIRUBIN ADULT 0.6 MG/DL (0.2-1.0); TOTAL PROTEIN 6.7 GM/DL (6.4-8.2)
[2017-11-21] MEDS ORDERED: SERT25TA83 PO (13:08)
[2017-11-21] MEDS ORDERED: FINA5TAB2 PO (13:08)
[2017-11-21] MEDS ORDERED: TEMA15CA PO (13:09)
--- NOTE | 2017-11-21 16:30 | PD.CONS ---
Consult Service Palliative Care . Consult Requested By Dr. Mercado . Primary Care Physician Dr. Kramer . Reason for Consultation a. To assist with evaluation and management of symptoms including: back pain; dyspnea; cough; depression; cachexia; confusion; generalized weakness b. To assist medical decision maker(s) with: better understanding of current medical conditions; weighing benefits/burdens of medical treatment options; making medical treatment decisions. . HPI History of Present Illness Mr. Velasco is a 72-year-old [place] of [facility] with a known medical history including bronchogenic cancer s/p lobectomy; chronic back pain; anemia; benign prostatic hypertrophy; coronary artery disease s/p CABG; COPD; depression; hypertension; hyperlipidemia; opioid dependency; and stroke who was brought to the emergency department on 11/17/17 under a Cardenas Act after he was found by police, confused, sitting in his car looking at medical papers. He thought he was in [facility]. The car was apparently missing a wheel at that time as well. 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 He underwent lobectomy in 12/2011. A new nodule was noted and there was neurovascular involvement in 03/2013. He was started on carboplatin and abraxan at that time which patient opted to stop in 08/2013. Patient was followed by Dr. Guajardo whose notes indicate he felt there was high chance of cancer recurrence. The patient had an L2 compression fracture in 2016. There were concerns for a pathologic fracture given his history of malignancy. He underwent L2 kyphoplasty in 03/2017. There was a bone biopsy at that time and path was negative for malignancy. Records we now have indicate that the patient underwent bronchoscopy for right lung atelectasis and mucous plugging in 2016. We don't have path reports from those biopsies and washings, but patient reports he is free of cancer. Patient reports he has chronic back pain. He has been on opiates analgesics for years but felt out of control. He was recently started on Suboxone (within the last months) and feels that this is controlling his pain to his satisfaction and he appreciates not being dependent on the other opiates. Patient reports he has been fighting depression for years. He believes it has grown worse over the last months. He has been on medication for depression for years. He does not think it has been particularly helpful. He says his children are what keep him alive. Initial vital signs in the emergency department showed the following --> temperature 98.7; pulse 13; respiratory rate 20; blood pressure 175/84; pulse oximetry 93% Initial examination by the emergency department of mathematics chair noted the following: Patient was well-developed and well-nourished. There were decreased breath sounds with expiratory wheezes. Neurologic exam was nonfocal. Remainder of the examination was unremarkable. Initial diagnostic testing revealed the following: * CBC showed WBC 11.6; hemoglobin 11.0; platelet count 297 * Serum chemistry profile showed sodium 135; potassium 4.1; chloride 98; CO2 29.8; anion gap 7; BUN 28; creatinine 0.96; GFR 77; glucose 144 * Liver Function tests are within normal limits * Coagulation profile was unremarkable * Urinalysis remarkable only for small occult blood * Urine drug screen was positive for both opiates and benzodiazepines * RPR was nonreactive * EKG showed sinus rhythm with an old septal myocardial infarction. There were no acute ST-T wave changes. * Chest x-ray showed changes consistent with COPD. No acute infiltrate. * CT of the brain showed no acute intracranial injury or bleed. Old ischemic changes were noted. * Brain MRI was unremarkable. * Carotid artery ultrasound showed atherosclerotic plaques bilaterally but without hemodynamically significant stenosis. * EEG 11/19/17 --> Some bilateral slowing at times, a bit more prominent on the left than the right. Left hemisphere lesion could be ruled out. No epileptiform or seizure activity noted. Patient was given nebulizer treatments in the emergency department. He was also given 60 mg of oral prednisone. Repeat O2 saturation after treatment came back at 89%. The patient was admitted to the hospitalist service because of his hypoxemia attributed to a COPD exacerbation. It was also felt he needed further ongoing psychiatric management and evaluation under the Cardenas act. On initial psychiatric evaluation the patient was quite confused, disorganized, and unable to provide any meaningful information for psychiatric assessment. He thought that he was in a friend's house in [facility] in 1992. Also noted was a hearing deficit. Psychiatrist spoke by phone with the patient's sister -- Naomi Matson ([phone]). Ms. Matson indicated that the patient normally lives with her and that he normally functions fine in society without problem. There was no recent memory deficit. She did report a history of depression and a history of opiate use. Patient had been taking Suboxone. There were no previous suicide attempts. No known prior psychiatric hospitalizations. Though there was abuse of prescription drugs. There is no known use of illicits. On subsequent psychiatric evaluation of 11/19/2017, the patient was destructive , restless, agitated and "difficult to handle in the unit." The previous night he had tried to walk out of the unit and had to be medicated twice. He was unable to recall why he was in the hospital or the circumstances that brought him there. He thought the year was CT 92. He felt the nurses were trying to inflict him damage. Seroquel at 25 mg twice daily was started. Trazodone was subsequently increased to 100 mg by mouth at bedtime. The medical team had some concerns regarding opiate withdrawal as the Suboxone was stopped. Patient's confusion and psychotic thought process has improved over the last 24 hours. He remains somewhat confused at time of my visit, but can engage in conversation. At time of my visit her reports his usual chronic back pain but can't quantify it or describe it further. . Function/Cognitive Trajectory Patient's sister reports he began having some confusion a few days prior to his hospitalization. Otherwise , she felt he had been behaving normally. She noted some weight loss but he did not share how much weight. He had been having night sweats for some time. The sister attributed the confusion and even the night sweats to the suboxone but she didn't know exactly when he had started that. Sister was not aware of any street drug usage. As far as the sister knew, he was free of cancer. Sister reports he had some sort of abdominal surgery at [facility] a couple of months ago. . Review of Systems ROS Limitations: Clinical Condition (Patient with confusion and intermittent psychosis. ROS taken from sister and medical record.) Constitutional: COMPLAINS OF: Diaphoretic episodes, Fatigue, Weight loss, Change in appetite, Night Sweats, Pain, Generalized weakness, DENIES: Fever, Weight gain Endocrine: DENIES: Polyuria, Polyphagia Eyes: COMPLAINS OF: Vision loss (wears glasses) Ears, nose, mouth, throat: COMPLAINS OF: Hearing loss (Hearing aide), DENIES: Epistaxis Respiratory: COMPLAINS OF: Cough, Wheezing, Sputum production, Shortness of breath Cardiovascular: COMPLAINS OF: Dyspnea on Exertion, DENIES: Chest pain, Syncope , Lower Extremity Edema, Orthopnea Gastrointestinal: COMPLAINS OF: Abdominal pain, DENIES: Bloody stools Genitourinary: COMPLAINS OF: Decreased stream Musculoskeletal: COMPLAINS OF: Joint pain, Back pain Integumentary: DENIES: Rash Hematologic/Lymphatics: DENIES: Bruising Neurologic: DENIES: Headache, Seizures, Tremor Psychiatric: COMPLAINS OF: Confusion, Depression Other ROS: * edentulous Past Family Social History Coded Allergies: oxycodone (Unverified Allergy, Mild, Hives, 11/17/17) tramadol (Unverified Allergy, Mild, Itching, 11/17/17) Oyzaxoz-Sib-Gnh Reductase Inhibitor (Unverified Allergy, Unknown, 11/17/17) sertraline (Unverified Allergy, Unknown, 11/17/17) Past Medical History Squamous cell lung cancer s/p lobectomy and chemotherapy. Hypertension B12 deficiency Chronic back pain BPH CAD s/p CABG Carotid artery stenosis COPD -- lungs with emphysematous changes Degenerative disc disease Hyperlipidemia Kyphosis for non-pathologic L2 compression fracture Opiate dependence currently on Suboxone Peripheral vascular disease Stroke 09/2011 . Past Surgical History CABG Carotid endarterectomy Ear surgery Gastric surgery for ulcer in [facility] Lobectomy for bronchogenic carcinoma Kyphoplasty Mesenteric aneurysm repair . Reported Medications Prehospital medications at home included the following: Lisinopril 10 Mg Tab 10 Mg PO DAILY Proscar (Finasteride) 5 Mg Tab 5 Mg PO DAILY Clonazepam 1 Mg Tab 1 Mg PO BID Miralax QD Sertraline 20 mg /d Temazepam 15 mg q hs Suboxone -- unknown dose . Current Medications Medications (Trade) Dose Ordered Sig/Dayana Route Start Time Stop Time Status Last Admin (Ecotrin Ec) 81 mg DAILY PO 11/18/17 20:00 11/21/17 08:45 (Prinivil) 10 mg DAILY PO 11/18/17 20:00 11/21/17 08:45 (Theragran) 1 tab DAILY PO 11/19/17 09:00 11/21/17 08:44 (Vitamin B1) 100 mg DAILY PO 11/19/17 09:00 11/21/17 08:44 (Symbicort 160-4.5 Mcg Inh) 2 puff Q12HR INH 11/18/17 21:00 11/21/17 08:45 (Mucinex Er) 600 mg BID PO 11/18/17 21:00 11/21/17 08:45 (Ativan) 0.5 mg Q12H PRN PO 11/18/17 19:30 11/19/17 20:00 (Ativan Inj) 0.5 mg Q12H PRN IM 11/18/17 19:30 (Tylenol) 650 mg Q4H PRN PO 11/18/17 19:30 11/21/17 12:20 (Milk Of Magnesia Liq) 30 ml DAILY PRN PO 11/18/17 19:30 (Mag-Al Plus Susp Liq) 30 ml Q6H PRN PO 11/18/17 19:30 (Habitrol 21 Mg Patch.24 Hr) 1 patch DAILY T-DERMAL 11/19/17 09:00 11/21/17 08:46 Miscellaneous Information 1 HS T-DERMAL 11/18/17 21:00 11/20/17 20:39 (SEROquel) 25 mg BID PO 11/19/17 12:00 Future hold 11/19/17 21:00 (Catapres) 0.1 mg Q6H PRN PO 11/19/17 15:30 11/21/17 05:55 (Duoneb Neb) 1 ampule Q2HR NEB PRN NEB 11/19/17 15:30 11/20/17 14:20 (Desyrel) 100 mg HS PO 11/21/17 21:00 (D50w (Vial) Inj) 50 ml UNSCH PRN IV PUSH 11/21/17 11:30 (Glucagon Inj) 1 mg UNSCH PRN OTHER 11/21/17 11:30 . Family History Mother had a stroke. Father had heart disease and asthma. A brother had brain cancer. . . Substance Use Tobacco: Smoked 1 ppd for 15 years. Alcohol: No known hx of abuse Prescription med abuse: Has history of prescription opiate abuse. Illicits: No known use of illicits. . Psychosocial History Patient was born and raised in [facility] ([facility] Left prior to the war. Lived in [facility] before coming to the . Speaks multiple languages including Malay, Sami, Bosnian, Danish. High school education. 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 twice. 2nd is . Has two daughters -- one in [place] ( Venita), one in [place] (Vero) -- he is touch with both of them frequently by phone. Patient brought his sister to this country and currently lives with her. He reports he gets along with her well. He has 3 brothers in addition to this sister. One brother dide at age 40 from brain cancer. . . Spiritual/Cultural Factors Patient reports that denominational/spirituality do not play an important role in his life. Patient says, "I believe that whatever a denominational a person has the right one if it works for them." . Living Will: Never completed Health Care Surrogate: Never completed Durable Power of Cancer Center Director: Never completed Health Care Surrogate(s): No known written designation of health care surrogate. . Documented care wishes: No known written documentation of health care preferences/wishes/goals. . Today's verbally stated goals: Patient is incapacitated at this time and unable to weigh benefits/burdens of treatment options. . Family/friends goals: No legal decision maker at this time. . Ethical and Legal Issues Patient is currently incapacitated. Anticipate he will regain capacity to make his own health care decisions. Unless we find a written designation of health care surrogate, proxy decision making would fall to his two daughters. . Physical Exam Vital Signs Date Time Temp Pulse Resp B/P (MAP) Pulse Ox O2 Delivery O2 Flow Rate FiO2 11/21/17 06:58 16 11/21/17 05:56 98.6 101 20 194/76 (115) 95 11/20/17 18:00 97.5 98 20 165/83 (110) 97 . 11/21/17 11/22/17 19:00 07:00 Intake Total 0 ml Balance 0 ml Intake Oral 0 ml # Voids 1 . Exam CONSTITUTIONAL/GENERAL: This is pale, cachectic, ill-appearing male in no apparent distress. Intermittently confused. TUBES/LINES/DRAINS: SKIN: No jaundice, rashes, or lesions. No wounds seen anteriorly. Skin temperature appropriate. Not diaphoretic. HEAD: Atraumatic. Normocephalic. Temporal wasting. EYES: Pupils equal and round and reactive. Extraocular motions intact. No scleral icterus. No injection or drainage. Fundi not examined. ENT: Grossly hard of hearing. . Nose without bleeding or purulent drainage. Throat without visible erythema, exudates, masses, or lesions. NECK: Trachea midline. Supple, nontender. No palpable thyroid enlargement or nodularity. CARDIOVASCULAR: Regular rate and rhythm without murmurs, gallops, or rubs. No JVD. Peripheral pulses symmetric. RESPIRATORY/CHEST: Symmetric, unlabored respirations. Diminished breath sound bilaterally. Faint expiratory wheeze. GASTROINTESTINAL: Abdomen soft, nondistended. Mild to moderate RLQ tenderness. No hepato-splenomegaly, or palpable masses. No guarding. Bowel sounds present. GENITOURINARY: Without palpable bladder distension. MUSCULOSKELETAL: Extremities without clubbing, cyanosis, or edema. No joint tenderness or effusion noted. No calf tenderness. No mottling or clubbing. LYMPHATICS: No palpable cervical or supraclavicular adenopathy. NEUROLOGICAL: Awake and alert. Motor and sensory grossly within normal limits. Follows commands. Intermittent confusion. Moves all extremities. PSYCHIATRIC: Depressed affect but able to smile at times. no apparent hallucinations or other psychotic thought process during my visit.. . Diagnostic Tests Laboratory Laboratory Tests Test 11/19/17 04:34 11/19/17 16:50 11/21/17 12:07 Blood Urea Nitrogen 31 MG/DL (7-18) 22 MG/DL (7-18) Creatinine 0.70 MG/DL (0.60-1.30) 0.51 MG/DL (0.60-1.30) Random Glucose 189 MG/DL (74-106) 134 MG/DL (74-106) Calcium Level 8.6 MG/DL (8.5-10.1) 8.6 MG/DL (8.5-10.1) Sodium Level 136 MEQ/L (136-145) 142 MEQ/L (136-145) Potassium Level 4.0 MEQ/L (3.5-5.1) 3.9 MEQ/L (3.5-5.1) Chloride Level 102 MEQ/L (98-107) 108 MEQ/L (98-107) Carbon Dioxide Level 28.4 MEQ/L (21.0-32.0) 26.6 MEQ/L (21.0-32.0) Anion Gap 6 MEQ/L (5-15) 7 MEQ/L (5-15) Estimat Glomerular Filtration Rate 111 ML/MIN (>89) 161 ML/MIN (>89) Hemoglobin A1c 6.3 % (4.3-6.0) Triglycerides Level 88 MG/DL (42-150) Cholesterol Level 119 MG/DL (120-200) LDL Cholesterol 79 MG/DL (0-99) HDL Cholesterol 22.0 MG/DL (40.0-60.0) Cholesterol/HDL Ratio 5.40 RATIO Blood Gas Puncture Site LT RADIAL Blood Gas Patient Temperature 98.6 Blood Gas HCO3 23 mmol/L (22-26) Blood Gas Base Excess -0.3 mmol/L (-2-2) Blood Gas Oxygen Saturation 88 % (90-100) Arterial Blood pH 7.46 (7.380-7.420) Arterial Blood Partial Pressure CO2 33 mmHg (38-42) Arterial Blood Partial Pressure O2 63 mmHg (61-120) Arterial Blood Oxygen Content 12.0 Vol % (12.0-20.0) Arterial Blood Carboxyhemoglobin 0.8 % (0-4) Arterial Blood Methemoglobin 1.4 % (0-2) Blood Gas Hemoglobin 9.6 G/DL (12.0-16.0) Oxygen Delivery Device ROOM AIR Blood Gas Inspired Oxygen 21 % White Blood Count 10.5 TH/MM3 (4.0-11.0) Red Blood Count 2.96 MIL/MM3 (4.50-5.90) Hemoglobin 10.3 GM/DL (13.0-17.0) Hematocrit 28.4 % (39.0-51.0) Mean Corpuscular Volume 96.0 FL (80.0-100.0) Mean Corpuscular Hemoglobin 34.8 PG (27.0-34.0) Mean Corpuscular Hemoglobin Concent 36.3 % (32.0-36.0) Red Cell Distribution Width 17.1 % (11.6-17.2) Platelet Count 501 TH/MM3 (150-450) Mean Platelet Volume 7.7 FL (7.0-11.0) Neutrophils (%) (Auto) 91.7 % (16.0-70.0) Lymphocytes (%) (Auto) 3.2 % (9.0-44.0) Monocytes (%) (Auto) 4.9 % (0.0-8.0) Eosinophils (%) (Auto) 0.0 % (0.0-4.0) Basophils (%) (Auto) 0.2 % (0.0-2.0) Neutrophils # (Auto) 9.6 TH/MM3 (1.8-7.7) Lymphocytes # (Auto) 0.3 TH/MM3 (1.0-4.8) Monocytes # (Auto) 0.5 TH/MM3 (0-0.9) Eosinophils # (Auto) 0.0 TH/MM3 (0-0.4) Basophils # (Auto) 0.0 TH/MM3 (0-0.2) CBC Comment AUTO DIFF Differential Comment AUTO DIFF CONFIRMED Platelet Estimate HIGH (NORMAL) Platelet Morphology Comment NORMAL (NORMAL) Prothrombin Time 11.5 SEC (9.8-11.6) Prothromb Time International Ratio 1.1 RATIO Activated Partial Thromboplast Time 28.7 SEC (24.3-30.1) Total Protein 6.7 GM/DL (6.4-8.2) Albumin 2.8 GM/DL (3.4-5.0) Alkaline Phosphatase 72 U/L (45-117) Aspartate Amino Transf (AST/SGOT) 22 U/L (15-37) Alanine Aminotransferase (ALT/SGPT) 21 U/L (12-78) Total Bilirubin 0.6 MG/DL (0.2-1.0) . Result Diagram: 11/21/17 1207 11/21/17 1207 Imaging * CXR 11/17/17 CONCLUSION: 1. Changes of obstructive pulmonary disease with minimal blunting of the posterior costophrenic angles bilaterally which may reflect pleural thickening versus subtle pleural effusions. 2. Status post L2 cement augmentation with mild compression deformities of the midthoracic spine. . Patient/Family Conference Present at Family Conference: Spoke with patient at bedside for about 25 minutes not including exam. Spoke with Sister on telephone for about 20 minutes. . . Family Conference Time (mins): 45 Family Conference Location: Bedside, Telephone Issues Discussed: * Palliative care role, purpose, approach * Additional medical, psychosocial, and spiritual history * Patients general health, functional status, and cognitive changes in the months leading up to the current hospitalization * Patient/family understanding of the current medical problems * Patient/family understanding of prognosis * Questions answered to the best of my ability * Palliative care contact information provided * Assessed patient's capacity to make his own health care decisions. * . Assessment and Plan Disease Oriented Problem List: (1) COPD exacerbation (2) Chronic back pain (3) Unspecified psychosis Symptom Scale: (1) Pain 0-10 Scale: Unable to quantify Comment: Patient has long history of chronic back pain requiring opiates in the past. He was recently transitioned to Suboxone and reports he is satisfied with the level of pain management from this. . (2) Confusion 0-10 Scale: Unable to quantify Comment: Cause of this is uncertain and may be multi-factorial. Patient may have a depression with psychotic symptoms. Possibly a medical delirium from cancer or infection. Possibly a medication reaction. Possilbe paraneoplastic syndrome. . (3) Dyspnea 0-10 Scale: Unable to quantify Comment: Pt with known COPD. Also is s/p lobectomy. Has symptoms suggestive of cancer recurrence. SOB has improved with treatments here -- 02, nebs, steroids. . (4) Depression (5) Cough (6) Cachexia (7) Night sweats 0-10 Scale: Unable to quantify Comment: Highly suggestive of cancer recurrence, but may also have infection. . Pertinent Non-Medical Issues Psychosocial: [place]. Some college. 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 Two daughters -- one in [place], one in [place]. Lives locally with his sister. Spiritual: Has not played an important role in his life. "I believe that whatever a denominational a person has the right one if it works for them." Legal: Unclear if he has and advance directive or designation of health care surrogate. Ethical issues impacting care: Patient is currently incapacitated to make his own health care decisions but anticipate he will regain capacity. If there is no written designation of health care surrogate, his adult children would be the legal proxies under the [place] Statutes. . Important Contacts * Naomi Matson (sister) [phone] * Venita (daughter in [place]) [phone] . Prognosis Patient's history, degree of cachexia, productive cough, reported weight loss, night sweats, and anemia are very suggestive of recurrence of his lung cancer. If he does have a recurrence, I don't think he will be a candidate for further aggressive cancer directed treatments and a transition to "comfort measures only " and hospice would probably be appropriate. It would be important to determine if there is a recurrence and would recommend a workup shortly after hospital discharge or during this hospitalization if , for any reason, a retirement hospital stay is predicted. It is possible, but less likley, that patient's cachexia is due to underlying copd and poorly treated depression. If this is the case, he may improve with treatment. . Code Status: Full Code Plan == Code status: Patient will remain full code until we are certain he is capacitated or we have a proxy decision maker to make health care decisions for him. == Decision making: Patient still has intermittent confusion, but his cognitive status is improving. I do not feel his current cognitive status allows him to have insight into his own illness and I do not think he can effectively weigh the benefits/burdens of treatment options. He will soon have a guardian advocate appointed by the court. In the meantime, we will try and see if he has completed a health care surrogate designation. If not, we will try and track down his children who would be the appropriate proxies under the [place] statutes. == Goals of medical treatment: Until patient is capacitated to indicate otherwise or we have a legal decision maker to direct us otherwise, the goals of medical care should be aggressive. == Symptoms * Confusion: Cause of this is uncertain and may be multi-factorial. Patient may have a depression with psychotic symptoms. Possibly a medical delirium from cancer or infection. Possibly a medication reaction. Possible paraneoplastic syndrome. * Dyspnea: Improved with 02, nebs. * Cough: Cough sounds wet. though he is afebrile, given hx of copd, cancer, pneumonia, may want to get sputum sample if he is able to produce one. Cachexia: I have concerns this is related to a cancer recurrence. Patient is currently on quetiapine which will probably increase appetite. May want to consider continuing systemic steroids (at low dose to avoid steroid induced agitation -- e.g. 2 mg dexamethasone) and/or adding mirtazapine. * Depression: Will yield to psych on further management of depression. He appears to be improving. Based on patient's history he had severe depression and was not being helped by the sertraline prescribed by his primary care physician. The quetiapine may be quite helpful for him. * Pain: Patient has long history of chronic back pain requiring opiates in the past. he was recently transitioned to Suboxone and reports he is satisfied with the level of pain management from this. If pain become an issue for him, would recommend getting back on the suboxone. I doubt any of his symptoms were secondary to this medication. == Patient's history, degree of cachexia, productive cough, reported weight loss, night sweats, and anemia are very suggestive of recurrence of his lung cancer. Additional testing for cancer recurrence (e.g. chest CT) will probably be helpful for patient or decision maker as they try and decide on treatment goals. This does not necessarily need to be done during this hospitalization but should be highly encouraged in near future. If records have not been requested from Dr. Guajardo or from René Mendoza (he did the bronchoscopy in 06/2017 ) or from [facility] would recommend doing so. Having knowedge of any cancer recurrence can help direct goals and probably reduce chance of re-admission in near future. == Given night sweats and cough (which sounds productive) may want to try and obtain sputum sample for C&S . Given cachexia and [place] origins, may want to consider TB testing. == Palliative care will try and contact daughters. We now have a phone number for daughter -- Venita - in [place]. == Will contact doctors offices to see if there is an advance directive. == Palliative care will continue to follow to assist with symptom management and to help understand goals of medical treatment as the clinical course evolves. . Time Spent Total Floor Time (mins): 90 (Total floor time included chart review, patient exam, above reference bedside conversation with patient and telephone conversation with sister, collaboration with primary nurse, review of available outside records, and documentation. ) Face to Face Time (mins): 40 >50% Counseling/Coord of Care: Yes Thank you for the opportunity to participate in the care of Mr. Velasco. . Attestation To help prompt me to consider important information that might be impacting today's encounter and assessment, information from prior notes written by myself or my colleagues may have been "brought forward" into today's note. My signature on this note, however, is an attestation that I personally performed the exam, history, and/or decision-making noted today, and, unless otherwise indicated, the interactions with patient, family, and staff as well as the review of records all occurred today. I also attest that the listed assessment and stated plan reflect my best clinical judgment today based on the combination of historical information, prior notes, and today's exam/ interactions. When time spent is documented, it refers only to time spent today by the signer, or if indicated, combined time spent today by collaborating physician/nurse practitioner. . Jossue Beckham MD Nov 21, 2017 16:29
[2017-11-21 18:16] VITALS: BP 149/80; PULSE 110; RESP 18; TEMP 98; O2SAT 95
[2017-11-21] MEDS: REMOVE OLD NICODERM (NICOTINE) PATCH T-DERMAL SCH (21:00)
[2017-11-21] MEDS: traZODone HCL 100 MG TAB PO SCH (21:08)
[2017-11-21] MEDS: QUEtiapine FUMARATE 25 MG TAB PO SCH (21:08)
[2017-11-22] MEDS: LORazepam 0.5 MG TAB PO PRN (00:31)
[2017-11-22] MEDS: ACETAMINOPHEN 325 MG TAB PO PRN ×3 (00:31→21:01)
[2017-11-22 06:10] VITALS: BP 138/90; PULSE 88; RESP 17; TEMP 98.3
[2017-11-22] MEDS: MULTIVITAMIN TAB PO SCH (08:52)
[2017-11-22] MEDS: BUDESONIDE-FORMOTEROL 160/4.5 MCG INHALER INH SCH ×2 (08:52→20:38)
[2017-11-22] MEDS: LISINOPRIL 10 MG TAB PO SCH (08:53)
[2017-11-22] MEDS: QUEtiapine FUMARATE 25 MG TAB PO SCH ×2 (08:53→20:38)
[2017-11-22] MEDS: THIAMINE HCL 100 MG TAB PO SCH (08:53)
[2017-11-22] MEDS: guaiFENesin E.R. 600 MG TAB PO SCH ×2 (08:53→20:39)
[2017-11-22] MEDS: ASPIRIN EC 81 MG TABEC PO SCH (08:53)
[2017-11-22] MEDS: NICOTINE 21 MG/24 HR PATCH T-DERMAL SCH (08:54)
[2017-11-22 09:27] VITALS: O2SAT 98
--- NOTE | 2017-11-22 12:03 | HHI.HCSW ---
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 Guajardo's office. No advanced directives on file. Previously spoke with Dr. Kramer's office. No advanced directives on file there either. Attempted to contact patient's daughter Venita (#[phone]) to inquire about advanced directives, obtain other daughter's (Vero) contact information, and inquire about both daughter's desire to participate in medical decision making for Mr. Velasco. Currently awaiting call back. . Follow Up Visit Certainly palliative care will be available to assist with goals of care but would want to make sure treatment for underlying psychiatric disease is maximized and health care decision maker is identified. Palliative care will continue to follow throughout hospitalization. Dayana Orr, STAFFING CLERK Nov 22, 2017 12:03
--- NOTE | 2017-11-22 13:08 | HHI.PR ---
Subjective Remarks very pleasant today, answers questions appropriately as he now has hearing aid as well He states that he was following with Dr. Guajardo. He even mentioned that he has an appointment this month. However when I called Dr. Guajardo's office, patient has not followed up with them since 2013. He has hearing aids today which helps. Denies any symptoms overnight. Objective Vitals Vital Signs Date Time Temp Pulse Resp B/P (MAP) Pulse Ox O2 Delivery O2 Flow Rate FiO2 11/22/17 09:27 98 Nasal Cannula 2.00 11/22/17 06:10 98.3 88 17 138/90 (106) 11/22/17 01:31 18 11/21/17 18:16 98.0 110 18 149/80 (103) 95 I/O 11/21/17 11/21/17 11/21/17 11/22/17 11/22/17 11/22/17 07:00 15:00 23:00 07:00 15:00 23:00 Intake Total 600 ml 0 ml 480 ml 400 ml 240 ml Balance 600 ml 0 ml 480 ml 400 ml 240 ml Intake Oral 600 ml 0 ml 480 ml 400 ml 240 ml # Voids 4 1 2 3 # Bowel Movements 0 Result Diagram: 11/21/17 1207 11/21/17 1207 Objective Remarks thin cachetic elderly with temporal wasting lung sounds with expiratory wheezing Diaphoretic, kyphosis Abdomen is soft and nontender. No rebound. No guarding. Lower extremities with muscle atrophy. No calf asymmetry or edema. A/P Assessment and Plan Impression: diaphoretic, cough, from [place], history of lung cancer and COPD. Palliative care recommendations noted. Will check for tuberculosis, sputum culture. hypoxia - mostly resolved, respiratory to monitor spot pulse ox q4hrs copd exacerbation - improved hx of lung ca in 2010- s/p sx and chemo per notes . Notes from Dr. Harman office and PCP office reviewed. Patient was treated for squamous cell carcinoma of the lung and had left lower lobe lobectomy. He was receiving chemotherapy in 2011 and decided to stop chemotherapy around 2012. He was lost to follow-up to Dr. Guajardo's office by 2013. He has had bronchoscopy with pulmonology Dr. Perez/Dr. Mendoza. Per Dr. Gaujardo's notes from 2013 office visit, there is a high chance of recurrence. L2 kyphoplasty in 03/2017- bone biopsy showing fibrosis of the marrow and cartilage formation. Consistent with compression fracture. Malignancy is not identified. positive benzos and opiates on admission - likely due to home meds in cancer patient- NOT abuse. Patient is on Restoril at home. elevated BP-partly from pain and anxiety. Home meds verified. Plan: o2 supplemet walk test - pulse ox q4hrs nebs prn prednisone being taperd leukocytosis due to steroid use watch for fevers pts pharmacy was called by his nurse, and verified on med rec-received further paperwork from pcp office re comorbidities . Reviewed notes from Dr. Guajardo office. He was lost to follow-up in 2013. from his pharmacy, he is on suboxone, xanax qhs prn and trazodone watch for withdrawals in hospital (not getting suboxone here, but is on ativan prn) palliative care consult to clarify goals of care- appreciated- notes reviewed Patient is full code. High chance for recurrence of cancer. Would consult oncology and pulmonology. Patient is psychiatrically cleared. Will accept him to medical service for further management of his cancer, weight loss Discharge Planning per clinical course Bebeto Mercado MD Nov 22, 2017 13:08
[2017-11-22] MEDS ORDERED: SERO25TA PO (13:10)
[2017-11-22] MEDS ORDERED: TRAZ100T10 PO (13:10)
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
--- NOTE | 2017-11-22 16:28 | PD.TTN ---
Patient Problems 1. Discharge planning 2. Medication compliance 3. Knowledge deficit 4. Lack of coping skills Progress Toward Goals Provider Present: Dr. Shady Gallegos Provider Input: e started on Suboxone and has many medical issues Psychiatric Counselors Present: Jovi Da Silva Jr., [facility] Psych Therapist Input: 11/22 Jovi , counselor is not here, patient to be transferred to medical Group Spec/RT/OT/SAM Present: Bret Frank OT Group Spec/RT/OT/SAM Input: 11/22 will not leave room and Libby Torres LCSW Nov 22, 2017 16:28
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
[2017-11-22 18:24] VITALS: BP 160/72; PULSE 91; RESP 18; TEMP 97.7; O2SAT 94
[2017-11-22] MEDS: traZODone HCL 100 MG TAB PO SCH (20:38)
[2017-11-22] MEDS: REMOVE OLD NICODERM (NICOTINE) PATCH T-DERMAL SCH (20:39)
[2017-11-22 21:04] LABS: FREE T4 1.36 NG/DL (0.76-1.46)
[2017-11-22 23:00] VITALS: O2SAT 94
[2017-11-22] MEDS: RESP: ALBUTEROL 2.5 MG/IPRATROPIUM 0.5 MG NEB (PRN) NEB (23:00)
[2017-11-22] MEDS ORDERED: IBUPROFEN 400 MG TAB PO ONE (23:30)
[2017-11-23 06:19] VITALS: BP 178/76; PULSE 83; RESP 16; TEMP 97.9; O2SAT 96
[2017-11-23] MEDS ORDERED: DIATRIZOATE MEGLUM/DIATRIZOATE SOD 9 ML CUP PO ONE (08:39)
[2017-11-23] MEDS: NICOTINE 21 MG/24 HR PATCH T-DERMAL SCH (09:00)
[2017-11-23] MEDS: ASPIRIN EC 81 MG TABEC PO SCH (09:57)
[2017-11-23] MEDS: MULTIVITAMIN TAB PO SCH (09:57)
[2017-11-23] MEDS: THIAMINE HCL 100 MG TAB PO SCH (09:57)
[2017-11-23] MEDS: guaiFENesin E.R. 600 MG TAB PO SCH ×2 (09:57→20:09)
[2017-11-23] MEDS: QUEtiapine FUMARATE 25 MG TAB PO SCH ×2 (09:57→20:10)
[2017-11-23] MEDS: BUDESONIDE-FORMOTEROL 160/4.5 MCG INHALER INH SCH ×2 (09:58→20:10)
--- NOTE | 2017-11-23 10:34 | HHI.PR ---
Subjective Remarks Pt has no complaints. States he would like his medications now. denies any worsening SOB, Chest pains, nausea or vomiting. Claims that his appetite is good. Discussed w RN, no concerns, pt just got back from court. Objective Vitals Vital Signs Date Time Temp Pulse Resp B/P (MAP) Pulse Ox O2 Delivery O2 Flow Rate FiO2 11/23/17 06:19 97.9 83 16 178/76 (110) 96 11/22/17 23:00 94 21 11/22/17 22:40 18 11/22/17 18:24 97.7 91 18 160/72 (101) 94 I/O 11/22/17 11/22/17 11/22/17 11/23/17 11/23/17 11/23/17 07:00 15:00 23:00 07:00 15:00 23:00 Intake Total 400 ml 240 ml 480 ml 240 ml Balance 400 ml 240 ml 480 ml 240 ml Intake Oral 400 ml 240 ml 480 ml 240 ml # Voids 3 3 # Bowel Movements 0 0 Result Diagram: 11/21/17 1207 11/21/17 1207 Objective Remarks very thin cachetic elderly with temporal wasting lung sounds are very distant and no wheezing auscultated this morning Diaphoretic, kyphosis Abdomen is soft and nontender. No rebound. No guarding. Lower extremities with muscle atrophy. No calf asymmetry or edema. A/P Assessment and Plan Impression: diaphoretic, cough, from [place], history of lung cancer and COPD. Palliative care recommendations noted. Tuberculosis, sputum culture have been ordered but not yet resulted. hypoxia - mostly resolved, respiratory to monitor spot pulse ox q4hrs copd exacerbation - improved hx of lung ca in 2010- s/p sx and chemo per notes . Patient was treated for squamous cell carcinoma of the lung and had left lower lobe lobectomy. He was receiving chemotherapy in 2011 and decided to stop chemotherapy around 2012. He was lost to follow-up to Dr. Guajardo's office by 2013. He has had bronchoscopy with pulmonology Per Dr. Guajardo's notes from 2014 office visit, there is a high chance of recurrence. L2 kyphoplasty in 03/2017- bone biopsy showing fibrosis of the marrow and cartilage formation. Consistent with compression fracture. Malignancy is not identified. positive benzos and opiates on admission - likely due to home meds in cancer patient elevated BP-partly from pain and anxiety. Plan: o2 supplemet walk test completed and pt passed. no need for home oxygen nebs prn s/p prednisone taper leukocytosis due to steroid use watch for fevers pts pharmacy was called by his nurse, and verified on med rec-received further paperwork from pcp office re comorbidities . Last office visit w Dr. Guajardo was in 2013. from his pharmacy, he is on suboxone, xanax qhs prn and trazodone watch for withdrawals in hospital (not getting suboxone here, but is on ativan prn) palliative care following. appreciate recs. Thyroid panel reviewed. Patient is full code. High chance for recurrence of cancer. med/ oncology and pulmonology consulted. Appreciate input. Patient is psychiatrically cleared. Discharge Planning Transfer to [facility] floor pending as there are not beds available at this time. Charmaine Yee MD Nov 23, 2017 10:34
[2017-11-23] MEDS ORDERED: LISINOPRIL 20 MG TAB PO ONE (10:45)
--- NOTE | 2017-11-23 10:55 | HHI.HCSW ---
Hooker Inspector Visit Cognitive Functioning Mr. Velasco asleep in bed upon my arrival for visit. He easily awakens and sits up throughout conversation. Declines putting in his hearing aid, one located at bedside. He is alert, able to make his needs known, appropriate and pleasant throughout conversation. . Significant Family/Friend No family/visitors at bedside. No phone call to family today. . Medical Components Mr. Velasco is currently undergoing medical work up. Continues to wait for bed on medical floor when one becomes available. . Advance Directive Mr. Velasco elected to complete health care surrogate naming his daughter, Yoly. No alternate chosen. Copy faxed to HIM to be scanned into EMR. . Follow Up Visit Palliative care will continue to follow throughout hospitalization. Dayana Orr, [employer]OWER Nov 23, 2017 10:55
[2017-11-23 13:22] VITALS: BP 148/90; PULSE 85
--- NOTE | 2017-11-23 14:24 | HHI.PYPN ---
Subjective Remarks Patient seen for follow-up, chart reviewed. Patient found lying on hospital bed , calm and cooperative. He states having slept better last evening. Denies any psychiatric symptoms, denies SI, HI, AVH or delusions. Patient continues to wait for transfer to medical floor for further medical evaluation and management. Review of Systems Except as stated in HPI: all other systems reviewed are Neg Mental Status Examination Appearance: Appropriate Consciousness: Alert Orientation: Person, Place, Date/Time (month and day but not to year) Motor Activity: Abnormal gait Speech: Slow, Other (notable accent) Language: Other Fund of Knowledge: Inadequate Attention and Concentration: Adequate Memory: Impaired (fluctuates at times) Mood: Appropriate Affect: Appropriate Thought Process & Associations: Goal directed, Linear, Other Thought Content: Appropriate Hallucination Type: None Delusion Type: None Suicidal Ideation: No Suicidal Plan: No Suicidal Intention: No Homicidal Ideation: No Homicidal Plan: No Homicidal Intention: No Insight: Fair Judgment: Impulsive Results Vitals/IOs Vital Signs Date Time Temp Pulse Resp B/P (MAP) Pulse Ox O2 Delivery O2 Flow Rate FiO2 11/23/17 13:22 85 148/90 (109) 11/23/17 06:19 97.9 16 96 11/22/17 23:00 21 11/22/17 09:27 Nasal Cannula 2.00 Intake and Output 11/23/17 11/23/17 11/24/17 08:00 16:00 00:00 Intake Total 480 ml Balance 480 ml Assessment & Plan Problem List: (1) Unspecified psychosis ICD Codes: F29 - Unspecified psychosis not due to a substance or known physiological condition Assessment & Plan Patient continues to be psychiatrically stable. Continues to be waiting for transfer to medical floor for further evaluation and management. Justification for Cont. Inpt. Patient awaiting transfer to medical floor Mahendra Gallegos MD Nov 23, 2017 14:24
[2017-11-23] MEDS: ACETAMINOPHEN 325 MG TAB PO PRN ×3 (14:26→21:41)
[2017-11-23] MEDS ORDERED: IOHEXOL 350 MG/ML 10 ML VIAL (for RAD DIAG) IVCONTRAST ONE (15:43)
--- NOTE | 2017-11-23 16:25 | RADRPT ---
EXAM DATE/TIME: 11/23/2017 15:32 [facility] COMPARISON: CT ABDOMEN & PELVIS W CONTRAST, April 18, 2017, 17:59. INDICATIONS : Hstory of lung cancer, evaluate for metastases. IV CONTRAST: 3.58 cc Omnipaque 350 (iohexol) IV ; Cumulative dose for multiple exams. RADIATION DOSE: 70 CTDIvol (mGy) ; Combined studies - Thorax/Abdomen/Pelvis MEDICAL HISTORY : Cardiovascular disease. Hypertension. Chronic obstructive pulmonary disease.lung cancer SURGICAL HISTORY : CABG Lobectomy.Kyphoplasty. ENCOUNTER: Initial ACUITY: 1 day PAIN SCALE: 0/10 LOCATION: chest TECHNIQUE: Volumetric scanning of the chest was performed. Using automated exposure control and adjustment of t he mA and/or kV according to patient size, radiation dose was kept as low as reasonably achievable to obtain optimal diagnostic quality images. DICOM format image data is available electronically for review and comparison. Follow-up recommendations for detected pulmonary nodules are based at a minimum on nodule size and pa tient risk factors according to Fleischner Society Guidelines. FINDINGS: LUNGS: Postsurgical features of prior right lower lobectomy. There is a slightly spiculated subpleural nodul ar opacity in the inferior posterior right upper lobe measuring 1.4 x 1.3 cm with adjacent oval nearl y discoid appearing opacity measuring 2.4 x 0.7 cm. There is a background of severe centrilobular emp hysema bilaterally. Subtle ill-defined patchy groundglass opacities in the left lower lobe measuring up to 5-6 mm. PLEURA: There is no pleural thickening or pleural effusion. MEDIASTINUM: No significant pericardial effusion. Prominent coronary artery calcifications. No see a significant m ediastinal or hilar adenopathy. AXILLAE: Within normal limits. No lymphadenopathy. SKELETAL: Cement augmentation changes at L2. Subtle wedge-shaped compression deformities of T5-T11. No abnormal focal lytic or blastic bony lesions. CONCLUSION: 1. Postsurgical features of prior right lower lobectomy. 2. Slightly spiculated subpleural nodular opacity in the inferior posterior right upper lobe measurin g 1.4 x 1.3 cm with adjacent discoid opacity measuring 2.4 x 0.7 cm. Although overall appearance favo rs post treatment change/scarring, this cannot be definitively verified given lack of prior compariso n exams. If no prior exams are not available, PET/CT examination may be performed for further charact erization. 3. Severe diffuse centrilobular emphysema subtle patchy groundglass opacities in the left lower lobe likely reflecting air-trapping or atelectasis. 4. Status post L2 cement augmentation with mild wedge-shaped compression deformities of multiple lowe r thoracic vertebral bodies. Storm Kam MD on November 23, 2017 at 16:11 Board Certified Radiologist. This report was verified electronically.
--- NOTE | 2017-11-23 16:39 | RADRPT ---
EXAM DATE/TIME: 11/23/2017 15:32 [facility] COMPARISON: CT ABDOMEN & PELVIS W CONTRAST, April 18, 2017, 17:59. INDICATIONS : History of lung, evaluate for metastases. IV CONTRAST: 70 cc Omnipaque 350 (iohexol) IV ; Cumulative dose for multiple exams. ORAL CONTRAST: Prescribed oral contrast ingested. RADIATION DOSE: 3.56 CTDIvol (mGy) ; Combined studies - Thorax/Abdomen/Pelvis MEDICAL HISTORY : Cardiovascular disease. Hypertension. Chronic obstructive pulmonary disease.lung cancer SURGICAL HISTORY : CABG Lobectomy.Kyphoplasty. ENCOUNTER: Initial ACUITY: 1 day PAIN SCALE: 0/10 LOCATION: Bilateral abdomen TECHNIQUE: Volumetric scanning of the abdomen and pelvis was performed. Using automated exposure control and ad justment of the mA and/or kV according to patient size, radiation dose was kept as low as reasonably achievable to obtain optimal diagnostic quality images. DICOM format image data is available electro nically for review and comparison. FINDINGS: LIVER: Homogeneous density without lesion. There is no dilation of the biliary tree. No calcified gallston es. SPLEEN: Normal size without lesion. PANCREAS: Within normal limits. KIDNEYS: 5 mm calcified calyceal calculus in the mid right kidney, similar to previous exam. Kidneys otherwise demonstrate symmetrical enhancement without evidence for focal mass or hydronephrosis. ADRENAL GLANDS: Redemonstration of an indeterminate density left adrenal mass which measures 1.1 x 1.6 cm, slightly d ecreased in size from prior exam. Right adrenal gland is normal. VASCULAR: Prominent atherosclerotic calcific changes of the infrarenal abdominal aorta and proximal iliac arter ies with bilateral common iliac artery stents in place. The origin of the left common iliac artery is likely severely stenosed. BOWEL/MESENTERY: The stomach, small bowel, and colon demonstrate no acute abnormality. There is no free intraperitone al air or fluid. ABDOMINAL WALL: Within normal limits. RETROPERITONEUM: There is no lymphadenopathy. BLADDER: No wall thickening or mass. REPRODUCTIVE: Nonspecific prostatic enlargement with course calcifications. INGUINAL: There is no lymphadenopathy or hernia. MUSCULOSKELETAL: Cement augmentation and at L2. No abnormal lytic or blastic bony lesions. CONCLUSION: 1. Small 1.1 x 1.6 cm left adrenal mass which has decreased slightly in size since prior examination of 04/18/2017. 2. Otherwise, no evidence for metastatic disease in the abdomen or pelvis. 3. Extensive atherosclerotic calcifications of the abdominal aorta with bilateral common iliac artery stents in place. 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 Patient ma y benefit from angiography and possible intervention if patient has symptoms. 4. Additional findings include 5 mm nonobstructing calcified calyceal calculus in the mid right kidne y and cement augmentation at L2. Storm Kam MD on November 23, 2017 at 16:22 Board Certified Radiologist. This report was verified electronically.
[2017-11-23 19:02] VITALS: BP 168/79; PULSE 84; RESP 16; TEMP 98.3; O2SAT 95
--- NOTE | 2017-11-23 19:31 | MB ---
cc: Mary Anne PINEDA M.D. DATE OF CONSULTATION 11/23/17 Mr. Velasco is a 72-year-old white male whom I am asked to see for lung cancer. The patient is not a good historian for details, but I have taken a lot of this information from his chart. He is actually presented on this occasion under a Cardenas Act for confusion, agitation and opioid use. Apparently, he has severe chronic back pain for which he takes Suboxone and may have had some mental status changes after that. On presentation 11/18/17, apparently he was brought in by the police who found him in a car thinking that he in [place]. That has cleared substantially, but his memory for details of his history are not good. What I do know is that he had lung cancer diagnosed in 2011 and apparently had a lobectomy and was followed by Dr. Guajardo. He was treated with chemotherapy, so I presume he had at least lymph node enlargement. Again, the patient cannot give me the details other than to say his last visit with Dr. Guajardo was a couple of years ago. He is followed regularly by Dr. Aba Kramer who is a primary care physician. He was seen by him last month. To the patient's knowledge, there has been no recurrence of malignancy. There is a report in the chart though he underwent a bronchoscopy in June of 2017. I do not know the details of that and he cannot recall who did that. It was not at [facility]. The patient continued to smoke up until a month ago. He has reportedly been diagnosed with COPD, but takes no regular medication for that. Since admission, he has been placed on an inhaler and p.r.n. aerosol therapy and his room air saturations have been fine. He is not complaining particularly of shortness of breath. He had an L2 compression fracture in March of 2017, had a kyphoplasty and biopsy at that time. Pathology did not reveal malignancy. He has had no chest pain, no hemoptysis, some cough without purulent sputum. ADDITIONAL PAST HISTORY In addition to the chronic pain, 1. COPD 2. History of lung cancer. 3. Benign prostatic hypertrophy 4. Coronary artery disease status post CABG 5. Chronic depression, 6. Hypertension, 7. Opioid dependence 8. Stroke. IMAGING STUDIES On admission, the patient had a chest x-ray which revealed chronic changes including changes consistent with COPD. A CT of his chest is pending. SOCIAL HISTORY Apparently but has two daughters. Smoking up until about a month ago. Denies alcohol abuse. PAST SURGICAL HISTORY As listed in his chart 1. CABG, 2. Carotid endarterectomy 3. Gastric surgery in [place] for ulcer 4. Lobectomy for the bronchogenic carcinoma 5. Kyphoplasty last year 6. Mesenteric aneurysm repair. MEDICATIONS Reviewed in the EMR. PHYSICAL EXAMINATION GENERAL: The patient is awake, alert, pleasant, difficulty with details of his medical history however. VITAL SIGNS: Afebrile, pulse 90, respirations 18, O2 sat room air 95%, blood pressure 160/80. HEENT: Sclerae anicteric. No adenopathy in the neck or supraclavicular region. CHEST: Actually fairly clear, some minimal congestion. No wheezing. HEART: Regular rhythm. No harsh murmur. ABDOMEN: Soft. EXTREMITIES: No peripheral edema. No cyanosis or clubbing. ASSESSMENT Mr. Velasco presented to psychiatry with confusion which seems to have cleared. Suspicion that this may have been related to his medications. I do not see any evidence of the plain film of recurrent malignancy, but a CT scan is pending. He has also been followed routinely by Dr. Kramer, has a well established medical past with Dr. Guajardo, the oncologist, and apparently someone bronchoscoped him in June. We will see what the CT scan here reveals, but I do not see any immediate need for any further intervention at present. We will be sure his COPD is stabilized. I am going to check a spirometry. With regard to his cancer, I think the best approach unless there was something urgent would be to have him seen back by Dr. Guajardo who may have these results of the recent bronchoscopy as well. R. MD JUHI Hillman/ /4:15 PM /7:16 PM
[2017-11-23] MEDS: RESP: ALBUTEROL 2.5 MG/IPRATROPIUM 0.5 MG NEB (SCH) INH (19:39)
[2017-11-23 19:40] VITALS: O2SAT 95
[2017-11-23] MEDS: traZODone HCL 100 MG TAB PO SCH (20:09)
[2017-11-23] MEDS: REMOVE OLD NICODERM (NICOTINE) PATCH T-DERMAL SCH (21:00)
[2017-11-23] MEDS ORDERED: IBUPROFEN 400 MG TAB PO ONE (21:30)
[2017-11-23] MEDS: LORazepam 0.5 MG TAB PO PRN (21:41)
--- NOTE | 2017-11-23 21:51 | MB ---
cc: JOSH LUTZ MD DATE OF CONSULTATION 11/23/[address] Mercado. REASON FOR CONSULTATION Oncology was consulted to render opinion regarding a patient with history of lung cancer now with possible recurrent disease. HISTORY OF PRESENT ILLNESS The patient is a 72-year-old male brought into the hospital under [place]as Act. He was found to be confused by police. He was sitting in the car and thought he was in [place]. He had a history of high risk lung cancer treated in 2011 under the care of Dr. Guajardo. He has not followed up with Dr. Guajardo since around 2013. He looks very thin, but he denies any weight loss. However, he is a rather poor historian. He denies any fever or chills. He denies any chest pain. He has chronic cough, occasionally brings up some greenish sputum. He denies significant shortness of breath. He has no nausea, vomiting, diarrhea or abdominal pain. Denies any change in urinary habit. He has chronic back pain which has not changed. PAST MEDICAL HISTORY 1. [id number] lung cancer. 2. Chronic back pain. 3. Chronic anemia. 4. Benign prostatic hypertrophy 5. Coronary artery disease 6. Chronic obstructive pulmonary disease 7. Depression 8. Hypertension, 9. Hyperlipidemia. 10. Stroke 11. L2 compression fracture in 2006 status post kyphoplasty, biopsy was negative for malignancy. 12. B12 deficiency. 13. Carotid artery stenosis 14. Degenerative disk disease 15. Peripheral vascular disease PAST SURGICAL HISTORY 1. Coronary bypass graft surgery 2. Left lower lobectomy 3. L2 kyphoplasty. 4. Bronchoscopy 5. CVA 6. Gastric surgery. 7. Aneurysm repair. FAMILY HISTORY Brother had brain cancer, has two daughters, both healthy. SOCIAL HISTORY Smoked a pack a day for more than 40 years, quit in 2011. Denies any alcohol use. ALLERGIES STATINS OXYCODONE SERTRALINE TRAMADOL. MEDICATIONS Current, 1. Lisinopril. 2. DuoNebs. 3. Trazodone. 4. Seroquel. 5. Multivitamin. 6. Thiamine. 7. Nicotine patch. 8. Symbicort 9. Guaifenesin 10. Aspirin. REVIEW OF SYSTEMS CONSTITUTIONAL: Denies any weight loss but looks very thin. HEENT: Negative. CARDIOVASCULAR: Denies chest pressure, palpitation RESPIRATORY: Has cough, denies any shortness of breath. GI: Denies nausea, vomiting, diarrhea or abdominal pain. : No dysuria, hematuria. MUSCULOSKELETAL: Has chronic back pain. HEMATOLOGIC: Negative. ENDOCRINE: Negative DERMATOLOGY: Negative. PSYCHIATRIC: As above. NEUROLOGIC: As above. PHYSICAL EXAMINATION VITAL SIGNS: Temperature 97.9, blood pressure 179/76, O2 saturation 96%. GENERAL: He is alert and oriented to place. He is not in acute distress. HEENT: Atraumatic, normocephalic. Pupils equal, round, reactive to light. Extraocular muscles intact. No scleral icterus. Oropharynx dry mucosa. No lesion or thrush. NECK: No thyromegaly. No palpable mass. LYMPHATIC: No palpable cervical, clavicular, axillary or inguinal lymph node CARDIOVASCULAR: Regular S1, S2. No murmur. LUNGS: Clear to auscultation. No significant wheezing. ABDOMEN: Soft, nontender. I could not palpate liver or spleen. EXTREMITIES: No cyanosis, no significant edema. BACK: Mild kyphosis. No paravertebral tenderness. SKIN: No rash or petechiae. NEUROLOGIC: Nonfocal. LABORATORY DATA 11/21/17 was reviewed. ASSESSMENT 1. Lung cancer. 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 He had a left lower lobe lobectomy. Around March 2013 he developed multiple nodules consistent with metastatic disease. He was then treated with carboplatin and Abraxane under the care of Dr. Guajardo. He stopped treatment around August 2013. The patient stopped follow up with Dr. Guajardo sometime in 2013. According to Dr. Guajardo's note, the patient has a high-risk tumor. The patient presented with confusion. He otherwise is a poor historian, not able give a detailed history. His brain MRI did not show any metastasis. He has chronic back pain, otherwise, has no new pain. He has chronic cough, but denies significant shortness of breath. I suggest getting a CT chest, abdomen and pelvis just to see if he has any recurrent disease or metastatic disease that could explain some of his symptoms. If the CT scan does not show recurrent disease I suggest that he follow up with Dr. Guajardo once discharged from hospital. 2. Chronic obstructive pulmonary disease exacerbation. He still has occasional cough. Overall symptom has improved. 3. L2 compression fracture status post kyphoplasty March 2017. Biopsy did not show any bone metastasis. He has had chronic back pain. 4. Chronic anemia likely anemia of chronic disease. 5. History of stroke. RECOMMENDATIONS 1. Get CT of the chest, abdomen and pelvis to see if he has any recurrent disease. 2. Reviewed Dr. Guajardo's note. If the patient's CT scan did not show any clear evidence of metastatic disease, he should follow up with Dr. Guajardo after discharge. 3. Continue supportive care. Thank you, Dr. Mercado, for asking me to see this patient. MD TAI Lamar/ /4:54 PM /9:16 PM [facility]
[2017-11-24 06:13] VITALS: BP 105/62; PULSE 84; RESP 18; TEMP 98.4; O2SAT 92
[2017-11-24 07:50] LABS: AUTOMATED NEUTROPHIL # 9.9 TH/MM3 (1.8-7.7); BASOPHIL % 0.1 % (0.0-2.0); EOSINOPHIL # 0.1 TH/MM3 (0-0.4); EOSINOPHIL % 0.7 % (0.0-4.0); HEMATOCRIT 27.5 % (39.0-51.0); HEMOGLOBIN 9.2 GM/DL (13.0-17.0); LYMPH % 5.8 % (9.0-44.0); LYMPHOCYTE # 0.7 TH/MM3 (1.0-4.8); MEAN CELL VOLUME 96.2 FL (80.0-100.0); MEAN CORPUSCULAR HEMOGLOBIN 32.3 PG (27.0-34.0); MEAN CORPUSCULAR HGB CONC 33.6 % (32.0-36.0); MEAN PLATELET VOLUME 7.4 FL (7.0-11.0); MONO % 7.3 % (0.0-8.0); MONOCYTE # 0.8 TH/MM3 (0-0.9); NEUT % 86.1 % (16.0-70.0); PLATELET COUNT 652 TH/MM3 (150-450); RED BLOOD COUNT 2.86 MIL/MM3 (4.50-5.90); RED CELL DISTRIBUTION WIDTH 17.2 % (11.6-17.2); WHITE BLOOD COUNT 11.5 TH/MM3 (4.0-11.0)
[2017-11-24] MEDS: guaiFENesin E.R. 600 MG TAB PO SCH (07:53)
[2017-11-24] MEDS: MULTIVITAMIN TAB PO SCH (07:53)
[2017-11-24] MEDS: THIAMINE HCL 100 MG TAB PO SCH (07:53)
[2017-11-24] MEDS: BUDESONIDE-FORMOTEROL 160/4.5 MCG INHALER INH SCH (07:53)
[2017-11-24] MEDS: QUEtiapine FUMARATE 25 MG TAB PO SCH (07:53)
[2017-11-24] MEDS: NICOTINE 21 MG/24 HR PATCH T-DERMAL SCH (07:54)
[2017-11-24] MEDS: ASPIRIN EC 81 MG TABEC PO SCH (07:54)
[2017-11-24] MEDS: RESP: ALBUTEROL 2.5 MG/IPRATROPIUM 0.5 MG NEB (SCH) INH (08:00)
--- NOTE | 2017-11-24 08:47 | HHI.PR ---
Subjective Remarks Patient is in bed appears sleepy at this time. However he is asking for anxiety medications. He denies any chest pain or shortness of breath at this time. He is not coughing. No fever or chills. She is saturating well on room air. Objective Vitals Vital Signs Date Time Temp Pulse Resp B/P (MAP) Pulse Ox O2 Delivery O2 Flow Rate FiO2 11/24/17 06:13 98.4 84 18 105/62 (76) 92 11/23/17 19:40 95 21 11/23/17 19:02 98.3 84 16 168/79 (108) 95 11/23/17 13:22 85 148/90 (109) I/O 11/23/17 11/23/17 11/23/17 11/24/17 11/24/17 11/24/17 07:00 15:00 23:00 07:00 15:00 23:00 Intake Total 240 ml 600 ml 600 ml Balance 240 ml 600 ml 600 ml Intake Oral 240 ml 600 ml 600 ml # Voids 3 3 4 # Bowel Movements 0 Result Diagram: 11/24/17 0713 11/21/17 1207 Imaging Last Impressions Chest CT 11/23/17 0000 Signed Impressions: Service Date/Time: October 15:32 - CONCLUSION: 1. Postsurgical features of prior right lower lobectomy. 2. Slightly spiculated subpleural nodular opacity in the inferior posterior right upper lobe measuring 1.4 x 1.3 cm with adjacent discoid opacity measuring 2.4 x 0.7 cm. Although overall appearance favors post treatment change/scarring, this cannot be definitively verified given lack of prior comparison exams. If no prior exams are not available, PET/CT examination may be performed for further characterization. 3. Severe diffuse centrilobular emphysema subtle patchy groundglass opacities in the left lower lobe likely reflecting air-trapping or atelectasis. 4. Status post L2 cement augmentation with mild wedge-shaped compression deformities of multiple lower thoracic vertebral bodies. Storm Kam MD Abdomen/Pelvis CT 11/23/17 0000 Signed Impressions: Service Date/Time: October 15:32 - CONCLUSION: 1. Small 1.1 x 1.6 cm left adrenal mass which has decreased slightly in size since prior examination of 04/18/2017. 2. Otherwise, no evidence for metastatic disease in the abdomen or pelvis. 3. Extensive atherosclerotic calcifications of the abdominal aorta with bilateral common iliac artery stents in place. 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 Patient may benefit from angiography and possible intervention if patient has symptoms. 4. Additional findings include 5 mm nonobstructing calcified calyceal calculus in the mid right kidney and cement augmentation at L2. Storm Kam MD Objective Remarks GENERAL: Cachetic elderly male, with temporal wasting, muscle waisting CARDIOVASCULAR: Regular rate and rhythm. RESPIRATORY: No accessory muscle use. No wheezing. Decreased breath sounds. GASTROINTESTINAL: Abdomen soft, non-tender, nondistended. Hepatic and splenic margins not palpable. MUSCULOSKELETAL: Kyphosis. Extremities without clubbing, cyanosis, or edema. No obvious deformities. NEUROLOGICAL: Awake and alert. No obvious cranial nerve deficits. Motor grossly within normal limits. Muscle wasting.. Normal speech. A/P Assessment and Plan 72 yo male, from [facility], history of lung cancer and COPD. Palliative care recommendations noted. Tuberculosis, sputum culture have been ordered but not yet resulted. Hypoxia - mostly resolved, respiratory to monitor spot pulse ox q4hrs COPD exacerbation - improved Hx of lung ca in 2010- s/p sx and chemo per notes . Patient was treated for squamous cell carcinoma of the lung and had left lower lobe lobectomy. He was receiving chemotherapy in 2011 and decided to stop chemotherapy around 2012. He was lost to follow-up to Dr. Guajardo's office by 2013. He has had bronchoscopy with pulmonology Per Dr. Guajardo's notes from 2014 office visit, there is a high chance of recurrence. L2 kyphoplasty in 03/2017- bone biopsy showing fibrosis of the marrow and cartilage formation. Consistent with compression fracture. Malignancy is not identified. positive benzos and opiates on admission - likely due to home meds in cancer patient elevated BP-partly from pain and anxiety. Plan: O2 supplement Walk test completed and pt passed. no need for home oxygen nebs prn s/p prednisone taper leukocytosis due to steroid use watch for fevers pts pharmacy was called by his nurse, and verified on med rec-received further paperwork from pcp office re comorbidities . Last office visit w Dr. Guajardo was in 2013. from his pharmacy, he is on suboxone, xanax qhs prn and trazodone watch for withdrawals in hospital (not getting suboxone here, but is on ativan prn) Palliative care following. appreciate recs. Thyroid panel reviewed. Patient is full code. High chance for recurrence of cancer. Med/ oncology and pulmonology consulted. Appreciate input. PET can be done as OP , can follow up with his oncology Dr Guajardo as OP Increased pt's lisinopril dose to 20mg po daily, continue to monitor BP's and titrate up as needed. Patient is psychiatrically cleared. Discharge Planning [facility] pending as there are not beds available at this time. Tashia Smith MD Nov 24, 2017 08:47
[2017-11-24 08:48] LABS: BICARBONATE 27.1 MEQ/L (21.0-32.0); CALCIUM 8.3 MG/DL (8.5-10.1); CREATININE 0.72 MG/DL (0.60-1.30)
[2017-11-24] MEDS ORDERED: LISI-515 PO ×2 (08:49→08:52)
[2017-11-24] MEDS ORDERED: VENTAER INH ×2 (08:51→08:52)
[2017-11-24] MEDS ORDERED: IPRA17I INH ×2 (08:51→08:52)
[2017-11-24] MEDS ORDERED: LISINOPRIL 20 MG TAB PO SCH (09:00)
[2017-11-24] MEDS: ACETAMINOPHEN 325 MG TAB PO PRN (10:46)
--- NOTE | 2017-11-24 12:34 | HHI.PYPN ---
Subjective Remarks Patient see for follow up, chart reviewed. Patient is psychiatrically cleared and pending bed to the medical floor. Patient slept well last night, no acute psychiatric symptoms, denies SI, HI, AVH or delusions. Review of Systems Except as stated in HPI: all other systems reviewed are Neg Mental Status Examination Appearance: Appropriate Consciousness: Alert Orientation: Person, Place, Date/Time (month and day but not to year) Motor Activity: Abnormal gait Speech: Slow, Other (notable accent) Language: Other Fund of Knowledge: Inadequate Attention and Concentration: Adequate Memory: Impaired (fluctuates at times) Mood: Appropriate Affect: Appropriate Thought Process & Associations: Linear, Other (concrete) Thought Content: Appropriate Hallucination Type: None Delusion Type: None Suicidal Ideation: No Suicidal Plan: No Suicidal Intention: No Homicidal Ideation: No Homicidal Plan: No Homicidal Intention: No Insight: Fair Judgment: Impulsive Results Labs Test 11/24/17 07:13 White Blood Count 11.5 TH/MM3 Red Blood Count 2.86 MIL/MM3 Hemoglobin 9.2 GM/DL Hematocrit 27.5 % Mean Corpuscular Volume 96.2 FL Mean Corpuscular Hemoglobin 32.3 PG Mean Corpuscular Hemoglobin Concent 33.6 % Red Cell Distribution Width 17.2 % Platelet Count 652 TH/MM3 Mean Platelet Volume 7.4 FL Neutrophils (%) (Auto) 86.1 % Lymphocytes (%) (Auto) 5.8 % Monocytes (%) (Auto) 7.3 % Eosinophils (%) (Auto) 0.7 % Basophils (%) (Auto) 0.1 % Neutrophils # (Auto) 9.9 TH/MM3 Lymphocytes # (Auto) 0.7 TH/MM3 Monocytes # (Auto) 0.8 TH/MM3 Eosinophils # (Auto) 0.1 TH/MM3 Basophils # (Auto) 0.0 TH/MM3 CBC Comment DIFF FINAL Differential Comment Blood Urea Nitrogen 27 MG/DL Creatinine 0.72 MG/DL Random Glucose 115 MG/DL Calcium Level 8.3 MG/DL Sodium Level 145 MEQ/L Potassium Level 3.6 MEQ/L Chloride Level 112 MEQ/L Carbon Dioxide Level 27.1 MEQ/L Anion Gap 6 MEQ/L Estimat Glomerular Filtration Rate 108 ML/MIN Vitals/IOs Vital Signs Date Time Temp Pulse Resp B/P (MAP) Pulse Ox O2 Delivery O2 Flow Rate FiO2 11/24/17 06:13 98.4 84 18 105/62 (76) 92 11/23/17 19:40 21 11/22/17 09:27 Nasal Cannula 2.00 Intake and Output 11/24/17 11/24/17 11/24/17 07:59 15:59 23:59 Intake Total 120 ml Balance 120 ml Assessment & Plan Problem List: (1) Unspecified psychosis ICD Codes: F29 - Unspecified psychosis not due to a substance or known physiological condition Assessment & Plan Patient continues to be psychiatrically stable, cleared and discharged. Patient awaiting transfer to medical floor. Justification for Cont. Inpt. Patient awaiting transfer to medical floor Mahendra Gallegos MD Nov 24, 2017 12:34
[2017-11-24] MEDS: LORazepam 0.5 MG TAB PO PRN (12:45)
[2017-11-24] MEDS ORDERED: IBUPROFEN 200 MG TAB PO ONE (13:00)
[2017-11-24 15:18] LABS: MITOGEN MINUS NIL RESULT 1.25 IU/mL; NIL RESULT 0.02 IU/mL; QUANTIFERON TB GOLD RESULT Negative (Negative); TB ANTIGEN MINUS NIL 0.02 IU/mL
--- NOTE | 2017-11-24 17:34 | PD.ONC.PN ---
Subjective Subjective Remarks (Late entry) I saw pt is the am. No CP/SOB. eager too go home. Objective Data Date Time Temp Pulse Resp B/P (MAP) Pulse Ox O2 Delivery O2 Flow Rate FiO2 11/24/17 06:13 98.4 84 18 105/62 (76) 92 11/23/17 19:40 95 21 11/23/17 19:02 98.3 84 16 168/79 (108) 95 11/24/17 11/24/17 11/24/17 07:00 15:00 23:00 Intake Total 720 ml Balance 720 ml Result Diagram: 11/24/17 0713 11/24/1713 Laboratory Results Laboratory Tests Test 11/24/17 07:13 White Blood Count 11.5 TH/MM3 Red Blood Count 2.86 MIL/MM3 Hemoglobin 9.2 GM/DL Hematocrit 27.5 % Mean Corpuscular Volume 96.2 FL Mean Corpuscular Hemoglobin 32.3 PG Mean Corpuscular Hemoglobin Concent 33.6 % Red Cell Distribution Width 17.2 % Platelet Count 652 TH/MM3 Mean Platelet Volume 7.4 FL Neutrophils (%) (Auto) 86.1 % Lymphocytes (%) (Auto) 5.8 % Monocytes (%) (Auto) 7.3 % Eosinophils (%) (Auto) 0.7 % Basophils (%) (Auto) 0.1 % Neutrophils # (Auto) 9.9 TH/MM3 Lymphocytes # (Auto) 0.7 TH/MM3 Monocytes # (Auto) 0.8 TH/MM3 Eosinophils # (Auto) 0.1 TH/MM3 Basophils # (Auto) 0.0 TH/MM3 CBC Comment DIFF FINAL Differential Comment Blood Urea Nitrogen 27 MG/DL Creatinine 0.72 MG/DL Random Glucose 115 MG/DL Calcium Level 8.3 MG/DL Sodium Level 145 MEQ/L Potassium Level 3.6 MEQ/L Chloride Level 112 MEQ/L Carbon Dioxide Level 27.1 MEQ/L Anion Gap 6 MEQ/L Estimat Glomerular Filtration Rate 108 ML/MIN Objective Remarks GENERAL: Well-nourished, well-developed patient. Thin SKIN: Warm and dry. HEAD: Normocephalic. EYES: No scleral icterus. No injection or drainage. NECK: Supple, trachea midline. No JVD or lymphadenopathy. LYMPHATIC: No adenopathy. CARDIOVASCULAR: Regular rate and rhythm without murmurs. RESPIRATORY: Breath sounds equal bilaterally. No accessory muscle use. GASTROINTESTINAL: Abdomen soft, non-tender, nondistended. EXTREMITIES: No cyanosis, or edema. MUSCULOSKELETAL: Adequate muscle tone. NEUROLOGICAL: No obvious focal deficit. Awake, alert, and oriented x3. PSYCHIATRIC: Appropriate mood and affect; insight and judgment normal. Assessment/Plan Assessment 1. Lung cancer. 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 He had a left lower lobe lobectomy. Around March 2013 he developed multiple nodules consistent with metastatic disease. He was then treated with carboplatin and Abraxane under the care of Dr. Gaujardo. He stopped treatment around August 2013. The patient stopped follow up with Dr. Guajardo sometime in 2013. According to Dr. Guajardo's note, the patient has a high-risk tumor. The patient presented with confusion. He otherwise is a poor historian, not able give a detailed history. His brain MRI did not show any metastasis. He has chronic back pain, otherwise, has no new pain. He has chronic cough, but denies significant shortness of breath. 11/[address] with pt[address] Ct chest showed cahnges most c/w post inflammatory changes. However, recommend PET/Ct for f/u. CT A/P no obvious mets disease. 2. Chronic obstructive pulmonary disease exacerbation. He still has occasional cough. Overall symptom has improved. 3. L2 compression fracture status post kyphoplasty March 2017. Biopsy did not show any bone metastasis. He has had chronic back pain. 4. Chronic anemia likely anemia of chronic disease. Plan PLAN: 1. Reviewed CT of the chest, abdomen and pelvis with pt. 2. Told pt to f/u with Dr. Guajardo to have outpt PET/CT. Julian St MD Nov 24, 2017 17:33
== END 2017-11-24 14:30 | disposition home or self-care (01) | DRG 885 ==
LOC: H4EA 17:48
PROVIDERS: ADMIT Student in an Organized Health Care Education/Training Program; ATTEND Student in an Organized Health Care Education/Training Program
DX: F29 Unspecified psychosis not due to a substance or known physiological condition (principal); E46 Unspecified protein-calorie malnutrition; R64 Cachexia; J44.1 Chronic obstructive pulmonary disease with (acute) exacerbation; M54.9 Dorsalgia, unspecified; I10 Essential (primary) hypertension; G89.29 Other chronic pain; E78.5 Hyperlipidemia, unspecified; N40.0 Benign prostatic hyperplasia without lower urinary tract symptoms; I25.10 Atherosclerotic heart disease of native coronary artery without angina pectoris; H91.90 Unspecified hearing loss, unspecified ear; E53.8 Deficiency of other specified B group vitamins; D63.8 Anemia in other chronic diseases classified elsewhere; I73.9 Peripheral vascular disease, unspecified; R09.02 Hypoxemia; F17.200 Nicotine dependence, unspecified, uncomplicated; F32.9 Major depressive disorder, single episode, unspecified; G47.9 Sleep disorder, unspecified; D72.829 Elevated white blood cell count, unspecified; M40.209 Unspecified kyphosis, site unspecified; Z51.5 Encounter for palliative care; I25.2 Old myocardial infarction; Z68.29 Body mass index [BMI] 29.0-29.9, adult; Z85.118 Personal history of other malignant neoplasm of bronchus and lung; Z86.73 Personal history of transient ischemic attack (TIA), and cerebral infarction without residual deficits; Z90.2 Acquired absence of lung [part of]; Z95.1 Presence of aortocoronary bypass graft; Z92.21 Personal history of antineoplastic chemotherapy; Z80.8 Family history of malignant neoplasm of other organs or systems; Z79.899 Other long term (current) drug therapy; Z87.820 Personal history of traumatic brain injury; T38.0X5A Adverse effect of glucocorticoids and synthetic analogues, initial encounter
CPT/HCPCS: 36600; 71260; 74177; 80048; 80053; 80061; 82805; 82948; 83036; 84439; 84443; 85025; 85610; 85730; 86480; 87015; 94618; 94640; 94664; J1630; J3420; J7512; Q9963; Q9967

== ENCOUNTER 2018-01-29 14:44 | Inpatient (IN) | payer MEDICARE, MEDICAID ==
[2018-01-29] VITALS (7 sets, daily range): BP systolic 110–227; BP diastolic 59–139; PULSE 84–113; RESP 14–25; TEMP 98.9; O2SAT 96–100
[~2018-01-29] VITALS: Ht 172.7 cm; Wt 45.0 kg
[~2018-01-29 14:44] MED LIST changes: -AZIT250T3 PO; +FINA5TAB2 PO; +IPRA17I INH; +LISI-515 PO; -LISI10TA3 PO; -PRED20 PO; +SERO25TA PO; +TRAZ100T10 PO; +VENTAER INH
--- NOTE | 2018-01-29 15:25 | PD ---
HPI Chief Complaint: Fall Time Seen by Provider: 15:08 Travel History International Travel<30 days: No Contact w/Intl Traveler<30days: No Traveled to known affect area: No History of Present Illness HPI Patient comes emergency department complaining of right hip pain status post mechanical fall that occurred at his sister's today shortly prior to arrival. Patient states he was coming out of the bathroom his leg gave out on him causing land on his right hip causing the pain. Describes pain is a sharp stabbing pain without radiation. Pain is worse palpation trying to move his right hip. Patient denies hitting his head or loss of consciousness. Denies any chest pain, shortness of breath, numbness or tingling anywhere. Patient reports he has not taken his blood pressure medication in several weeks has been out of his pain medication for approximately a week. Patient normally ambulates on his own. PFSH Past Medical History Arthritis: Yes Blood Disorders: No Anxiety: Yes Depression: Yes (NO AT THIS TIME) Cancer: Yes (Per EMR lung cancer) Cardiovascular Problems: Yes (See EMR COPD) High Cholesterol: Yes Chemotherapy: Yes COPD: Yes Diminished Hearing: Yes Endocrine: No Gastrointestinal Disorders: Yes (ULCERS) Genitourinary: Yes Hypertension: Yes Immune Disorder: No Implanted Vascular Access Dvce: No Musculoskeletal: Yes (KYPHOSIS, CHRONIC BACK PAIN) Neurologic: Yes Psychiatric: No (per EMR) Reproductive: No Respiratory: Yes (BRONCHOGENIC LUNCH CANCER) Seizures: No (Patient uncooperative historian) Ulcer: Yes Past Surgical History Abdominal Surgery: Yes (STOMACH SURGERY FOR ULCER, DONE IN [place] IN 1971) AICD: No Arteriovenous Shunt: No Cardiac Surgery: Yes (CABG,CAROTID ENDARTERECTOMY) Ear Surgery: Yes (BILATERAL EARS LAST YEAR) Insulin Pump: No Joint Replacement: No Pacemaker: No Thoracic Surgery: Yes (lobectomy on the right) Other Surgery: Yes Social History Alcohol Use: Yes Tobacco Use: Yes Substance Use: No Allergies-Medications (Allergen,Severity, Reaction): Coded Allergies: oxycodone (Unverified Allergy, Mild, Hives, 11/17/17) tramadol (Unverified Allergy, Mild, Itching, 11/17/17) Glhkbgk-Yjo-Wxj Reductase Inhibitor (Unverified Allergy, Unknown, 11/17/17) sertraline (Unverified Allergy, Unknown, 11/17/17) Reported Meds & Prescriptions Reported Meds & Active Scripts Active Ventolin Hfa 18 GM Inh (Albuterol Sulfate) 90 Mcg/Act Aer 2 Puff INH Q4-6H PRN Atrovent HFA 12.9 GM Inh (Ipratropium [place]) 17 Mcg/Actuation Aer 2 Puff INH Q6HR PRN Lisinopril 20 Mg Tab 20 Mg PO DAILY Seroquel (Quetiapine Fumarate) 25 Mg Tab 25 Mg PO BID 30 Days Trazodone (Trazodone HCl) 100 Mg Tablet 100 Mg PO HS Thera Tablet (Multivitamin with Folic Acid) 400 Mcg Tablet 1 Tab PO DAILY Gnp Vitamin B-1 (Thiamine HCl) 100 Mg Tab 100 Mg PO DAILY [guaiFENesin ER] 600 MG Tabcr 600 Mg PO BID [Budeson-Formot 160-4.5 Mcg Inh] 60 PUFF Aero 2 Puff INH Q12HR Aspirin DR (Aspirin) 81 Mg Tabdr 81 Mg PO DAILY Reported Finasteride 5 Mg Tab 5 Mg PO DAILY Do not crush. Review of Systems Except as stated in HPI: all other systems reviewed are Neg Physical Exam Narrative GENERAL: Well-developed, cachectic, in no acute distress, and non-ill appearing. SKIN: Focused skin assessment warm and dry. HEAD: Atraumatic. Normocephalic. EYES: Pupils equal and round. EOMI. No scleral icterus. No injection or drainage. ENT: No nasal bleeding or discharge. Mucous membranes pink and moist. NECK: Trachea midline. Supple. No nuclear rigidity. CARDIOVASCULAR: Regular rate and rhythm. No murmur appreciated. Dorsal pulses 2+, intact, and equal bilaterally. Capillary refill less than 2 seconds. RESPIRATORY: No accessory muscle use. No respiratory distress. Decreased breath sounds throughout. Breath sounds equal bilaterally. MUSCULOSKELETAL: No obvious deformities. No clubbing. No cyanosis. No edema. Decreased range of motion right hip secondary to pain. Hip: Pulses equal BL distal to injury. Capillary refill less than 2 seconds distal to injury and equal BL. FROM distal to injury and equal BL. Strength distal to injury equal BL. NV intact distal to injury and equal BL. Plantar flexion and dorsal flexion equal BL. Dorsal pulses equal BL. Sensation equal BL 1st web space. Patient reports tenderness palpation over right greater trochanter. No crepitus. Right lower extremity is externally rotated. NEUROLOGICAL: Awake and alert. No obvious cranial nerve deficits. Motor grossly within normal limits. Normal speech. PSYCHIATRIC: Appropriate mood and affect; insight and judgment normal. Data Data Last Documented VS Vital Signs Date Time Temp Pulse Resp B/P (MAP) Pulse Ox O2 Delivery O2 Flow Rate FiO2 01/29/18 17:26 113 21 209/97 (134) 01/29/18 15:15 96 Room Air 01/29/18 15:03 98.9 Orders Orders Pelvis, Ap Only (Routine) (01/29/18 ) Femur (Ap & Lat/2vws) (01/29/18 ) Basic Metabolic Panel (Bmp) (01/29/18 15:18) Complete Blood Count With Diff (01/29/18 15:18) Prothrombin Time / Inr (Pt) (01/29/18 15:18) Act Partial Throm Time (Ptt) (01/29/18 15:18) Iv Access Insert/Monitor (01/29/18 15:18) Ecg Monitoring (01/29/18 15:18) Oximetry (01/29/18 15:18) Morphine Inj (Morphine Inj) (01/29/18 15:30) Ondansetron Inj (Zofran Inj) (01/29/18 15:30) Sodium Chloride 0.9% Flush (Ns Flush) (01/29/18 15:30) Acetaminophen 1000 Mg/100 Ml (Ofirmev 10 (01/29/18 16:45) Hydralazine Inj (Apresoline Inj) (01/29/18 16:45) Chest, Single Ap (01/29/18 ) Electrocardiogram (01/29/18 ) Hydralazine Inj (Apresoline Inj) (01/29/18 16:37) Consult Orthopedic (01/29/18 ) (Hub Use Only)Inp Phy Cons/Ref (01/29/18 ) Admit To Inpatient (01/29/18 ) Vital Signs (Adult) Q4H (01/29/18 17:32) Activity Bed Rest (01/29/18 17:32) Salsa Dance Instructor / Telemetry .CONTINUOUS (01/29/18 17:32) Diet Npo (01/29/18 Dinner) Sodium Chloride 0.9% Flush (Ns Flush) (01/29/18 17:45) Sodium Chloride 0.9% Flush (Ns Flush) (01/29/18 21:00) Basic Metabolic Panel (Bmp) (01/30/18 06:00) Complete Blood Count With Diff (01/30/18 06:00) Case Management Consult (01/29/18 17:32) Naloxone Inj (Narcan Inj) (01/29/18 17:45) Inpatient Certification (01/29/18 ) Morphine Inj (Morphine Inj) (01/29/18 17:45) ^ Other Nursing Orders (01/29/18 17:34) Admit Order (Ed Use Only) (01/29/18 17:43) Labs Laboratory Tests Test 01/29/18 16:05 White Blood Count 17.5 TH/MM3 Red Blood Count 3.34 MIL/MM3 Hemoglobin 10.6 GM/DL Hematocrit 31.9 % Mean Corpuscular Volume 95.3 FL Mean Corpuscular Hemoglobin 31.7 PG Mean Corpuscular Hemoglobin Concent 33.3 % Red Cell Distribution Width 15.7 % Platelet Count 441 TH/MM3 Mean Platelet Volume 6.9 FL Neutrophils (%) (Auto) 92.4 % Lymphocytes (%) (Auto) 2.2 % Monocytes (%) (Auto) 5.3 % Eosinophils (%) (Auto) 0.0 % Basophils (%) (Auto) 0.1 % Neutrophils # (Auto) 16.2 TH/MM3 Lymphocytes # (Auto) 0.4 TH/MM3 Monocytes # (Auto) 0.9 TH/MM3 Eosinophils # (Auto) 0.0 TH/MM3 Basophils # (Auto) 0.0 TH/MM3 CBC Comment DIFF FINAL Differential Comment Prothrombin Time 11.2 SEC Prothromb Time International Ratio 1.1 RATIO Activated Partial Thromboplast Time 26.1 SEC Blood Urea Nitrogen 17 MG/DL Creatinine 0.74 MG/DL Random Glucose 127 MG/DL Calcium Level 8.9 MG/DL Sodium Level 138 MEQ/L Potassium Level 3.4 MEQ/L Chloride Level 99 MEQ/L Carbon Dioxide Level 27.8 MEQ/L Anion Gap 11 MEQ/L Estimat Glomerular Filtration Rate 105 ML/MIN MDM Medical Decision Making Medical Screen Exam Complete: Yes Emergency Medical Condition: Yes Interpretation(s) Last Impressions Pelvis X-Ray 01/29/18 0000 Signed Impressions: Service Date/Time: Monday, January 29, 2018 15:41 - CONCLUSION: Comminuted and angulated intratrochanteric fracture of the right side. Efrain Montague MD Femur X-Ray 01/29/18 0000 Signed Impressions: Service Date/Time: Monday, January 29, 2018 15:43 - CONCLUSION: Comminuted and angulated intertrochanteric fracture. Efrain Montague MD Chest X-Ray 01/29/18 0000 Signed Impressions: Service Date/Time: Monday, January 29, 2018 16:43 - CONCLUSION: 1. COPD changes. 2. Via and also the right suggesting previous lobectomy. Go Rangel MD Differential Diagnosis Fracture, dislocation, contusion Narrative Course Patient was seen and examined. Initial laboratory radiological studies were ordered. IV was established patient was on cardiac monitoring. Patient was given IV morphine for pain and Zofran for nausea. Patient is reevaluated status post x-ray read being reviewed. Patient reports he still having some pain. IV Tylenol as ordered. Patient blood pressure noted to be elevated patient was given IV hydralazine. Discussed all findings and plan of care with patient is agreeable for admission. All questions were answered. Discussed patient with orthopedics recommends having patient admitted to medicine for preop clearance for surgery tomorrow. Discussed patient with Dr. Salguero, who is in agreement plan of care and disposition. Discussed patient with hospitalist is agreeable to admit the patient. Patient remained stable throughout ED course. Physician Communication Physician Communication [id number] Velázquez's PA Viraj Mendoza, who recommends n.p.o. after midnight with consult to Dr. Velázquez. Admit to medicine. [id number] Mercado, who is agreeable to admit the patient. Diagnosis Primary Impression: Intertrochanteric fracture of right femur Qualified Codes: S72.144A - Nondisplaced intertrochanteric fracture of right femur, initial encounter for closed fracture Additional Impression: Hypertension Qualified Codes: I10 - Essential (primary) hypertension Admitting Information Admitting Physician Requests: Admit Condition: Stable Glen Borja Jan 29, 2018 15:25
[2018-01-29] MEDS ORDERED: SODIUM CHLORIDE 0.9% FLUSH 10 ML FLUSH IV FLUSH PRN (15:30)
[2018-01-29] MEDS ORDERED: MORPHINE SULFATE 4 MG/ML INJ IV PUSH ONE (15:30)
[2018-01-29] MEDS ORDERED: ONDANSETRON HCL 4 MG/2 ML VIAL IVP ONE (15:30)
--- NOTE | 2018-01-29 16:32 | RADRPT ---
EXAM DATE/TIME: 01/29/2018 15:41 [facility] COMPARISON: No previous studies available for comparison. INDICATIONS : Fell today, pain right pelvis, hip and femur MEDICAL HISTORY : None. SURGICAL HISTORY : bilateral grafts ENCOUNTER: Initial ACUITY: 1 day PAIN SCORE: 10/10 LOCATION: Right pelvis FINDINGS: There is a comminuted fracture of the proximal right femur was fracture lines extending through the i ntertrochanteric region. There is varus angulation of the femoral head/neck and possible impaction. Free floating fragment of the lesser trochanter. The bony acetabulum appears grossly intact. Vascu lar stents in the iliac region bilaterally. Multiple small calcifications within the prostate. CONCLUSION: Comminuted and angulated intratrochanteric fracture of the right side. Efrain Montague MD on January 29, 2018 at 16:29 Board Certified Radiologist. This report was verified electronically.
--- NOTE | 2018-01-29 16:33 | RADRPT ---
EXAM DATE/TIME: 01/29/2018 15:43 [facility] COMPARISON: No previous studies available for comparison. INDICATIONS : Fell today, pain right femur, hip and pelvis MEDICAL HISTORY : None. SURGICAL HISTORY : bilateral iliac grafts ENCOUNTER: Initial ACUITY: 1 day PAIN SCORE: 10/10 LOCATION: Bilateral right femur FINDINGS: Diffuse osteopenia. There is a comminuted and angulated fracture of the proximal femur involving the intertrochanteric region. Moderate varus angulation. The remainder of the shaft of the femur is in tact. Vascular calcification in the thigh. Bony acetabulum is intact. CONCLUSION: Comminuted and angulated intertrochanteric fracture. Efrain Montague MD on January 29, 2018 at 16:30 Board Certified Radiologist. This report was verified electronically.
[2018-01-29] MEDS ORDERED: hydrALAZINE HCL 20 MG/ML VIAL ONE (16:37)
[2018-01-29 16:40] LABS: AUTOMATED NEUTROPHIL # 16.2 TH/MM3 (1.8-7.7); BASOPHIL % 0.1 % (0.0-2.0); HEMATOCRIT 31.9 % (39.0-51.0); HEMOGLOBIN 10.6 GM/DL (13.0-17.0); LYMPH % 2.2 % (9.0-44.0); LYMPHOCYTE # 0.4 TH/MM3 (1.0-4.8); MEAN CELL VOLUME 95.3 FL (80.0-100.0); MEAN CORPUSCULAR HEMOGLOBIN 31.7 PG (27.0-34.0); MEAN CORPUSCULAR HGB CONC 33.3 % (32.0-36.0); MEAN PLATELET VOLUME 6.9 FL (7.0-11.0); MONO % 5.3 % (0.0-8.0); MONOCYTE # 0.9 TH/MM3 (0-0.9); NEUT % 92.4 % (16.0-70.0); PLATELET COUNT 441 TH/MM3 (150-450); RED BLOOD COUNT 3.34 MIL/MM3 (4.50-5.90); RED CELL DISTRIBUTION WIDTH 15.7 % (11.6-17.2); WHITE BLOOD COUNT 17.5 TH/MM3 (4.0-11.0)
[2018-01-29] MEDS ORDERED: hydrALAZINE HCL 20 MG/ML VIAL IV PUSH ONE (16:45)
[2018-01-29] MEDS ORDERED: ACETAMINOPHEN 1000 MG/100 ML 65 ML IV ONE (16:45)
[2018-01-29 16:52] LABS: INTERNATIONAL NORMALIZED RATIO 1.1 RATIO; PROTHROMBIN TIME - PATIENT 11.2 SEC (9.8-11.6)
[2018-01-29 17:05] LABS: BICARBONATE 27.8 MEQ/L (21.0-32.0); CALCIUM 8.9 MG/DL (8.5-10.1); CREATININE 0.74 MG/DL (0.60-1.30)
--- NOTE | 2018-01-29 17:05 | RADRPT ---
EXAM DATE/TIME: 01/29/2018 16:43 [facility] COMPARISON: FEMUR RIGHT (AP & LAT/2VWS), January 29, 2018, 15:43. INDICATIONS : Evaluate for pneumonia, pneumothorax, and communicable disease. Preop for hip fracture. MEDICAL HISTORY : None. SURGICAL HISTORY : Bilateral iliac grafts. ENCOUNTER: Initial ACUITY: 1 day PAIN SCORE: 8/10 LOCATION: Right hip FINDINGS: There is COPD changes. There is mild elevation of the right hemidiaphragm. There is volume loss on th e right suggesting previous lobectomy. There are pulmonary sutures evident. The lungs are otherwise c lear. The osseous structures are grossly intact. CONCLUSION: 1. COPD changes. 2. Via and also the right suggesting previous lobectomy. Go Rangel MD on January 29, 2018 at 17:01 Board Certified Radiologist. This report was verified electronically.
[2018-01-29] MEDS ORDERED: NALOXONE HCL 0.4 MG/ML AMP IV PUSH PRN (17:45)
[2018-01-29] MEDS ORDERED: MORPHINE SULFATE 2 MG/ML SYRINGE IV PUSH PRN (17:45)
--- NOTE | 2018-01-29 18:40 | HHI.HP ---
[facility] [place] Unknown Admission Diagnosis Right hip fracture, hypertension Diagnoses: Travel History International Travel<30 Days: No Contact w/Intl Traveler <30 Da: No Traveled to Known Affected Are: No History of Present Illness History from patient, ER PA communication, reviewing medical records, and his sister and [id number] at the bedside. Patient is also known to me from his prior hospitalization in October 2017. Sister reported that patient has been feeling dizzy for the past 2-3 weeks. She also states that he was not eating well. Today, he had fallen down. This was not witnessed. She thinks that he may have passed out. Patient himself is able to give history to espinoza yes or no. He stated he felt at home but he is not able to describe to me whether he tripped on something or not. He is not sure whether he passed out or hit his head. Sister reported that he must been on the ground for about 30 minutes. She found him and then she called 911. Review of system, the sister stated the patient was at urology office just last week and was prescribed antibiotics. She stated that he told her that it was her urine infection. According to sister, he was not having any fever. He does have cough but this was also chronic according to her. Denies diarrhea. Patient has history of lung cancer for which he is no longer following with oncologist. He refused for follow-up. Review of Systems Except as stated in HPI: all other systems reviewed are Neg Past Family Social History Past Medical History Hypertension History of lung cancer/squamous cell carcinoma in 2010. Status post lobectomy and chemotherapy in 2011, decided to stop chemo [place] [address] Guajardo. He was lost to follow-up with them by 2013. COPD PAD with LE stenting CVA BPH. Hard of hearing Past Surgical History lobectomy LE stents carotid artery sx Bronchoscopy L2 kyphoplasty in March 2017 Allergies: Coded Allergies: oxycodone (Unverified Allergy, Mild, Hives, 11/17/17) tramadol (Unverified Allergy, Mild, Itching, 11/17/17) Vbswrks-Dmd-Axj Reductase Inhibitor (Unverified Allergy, Unknown, 11/17/17) sertraline (Unverified Allergy, Unknown, 11/17/17) Family History none As far as the family knows Social History Still smokes cigarettes. Denies any alcohol abuse or drug abuse. Lives with his sister. Patient is from [facility]. He has children but do not really keep in touch with him. Physical Exam Vital Signs Vital Signs Date Time Temp Pulse Resp B/P (MAP) Pulse Ox O2 Delivery O2 Flow Rate FiO2 01/29/18 17:26 113 21 209/97 (134) 01/29/18 17:21 107 25 227/139 (168) 01/29/18 15:15 96 Room Air 01/29/18 15:03 98.9 102 18 194/100 (131) 98 Physical Exam GENERAL: Thin cachectic elderly gentleman, not in acute distress. However he is in pain and moaning. Has his hearing aid on and able to answer yes or no questions. SKIN: No rashes, ecchymoses or lesions. Cool and dry. HEAD: Atraumatic. Normocephalic. No temporal or scalp tenderness. EYES:. No scleral icterus. No injection or drainage. ENT: Nose without bleeding, purulent drainage or septal hematoma. Airway patent. NECK: Trachea midline. No JVD Supple, nontender, no meningeal signs. CARDIOVASCULAR: Regular rate and rhythm without gallops, or rubs. Systolic murmur at aortic area with radiation to the neck Respiratory: Bilateral decreased air entry. GASTROINTESTINAL: Abdomen soft, non-tender, nondistended. No guarding. MUSCULOSKELETAL: Extremities without clubbing, cyanosisNo calf tenderness. NEUROLOGICAL: Awake and alert. Normal speech. Laboratory Laboratory Tests Test 01/29/18 16:05 White Blood Count 17.5 Red Blood Count 3.34 Hemoglobin 10.6 Hematocrit 31.9 Mean Corpuscular Volume 95.3 Mean Corpuscular Hemoglobin 31.7 Mean Corpuscular Hemoglobin Concent 33.3 Red Cell Distribution Width 15.7 Platelet Count 441 Mean Platelet Volume 6.9 Neutrophils (%) (Auto) 92.4 Lymphocytes (%) (Auto) 2.2 Monocytes (%) (Auto) 5.3 Eosinophils (%) (Auto) 0.0 Basophils (%) (Auto) 0.1 Neutrophils # (Auto) 16.2 Lymphocytes # (Auto) 0.4 Monocytes # (Auto) 0.9 Eosinophils # (Auto) 0.0 Basophils # (Auto) 0.0 CBC Comment DIFF FINAL Differential Comment Prothrombin Time 11.2 Prothromb Time International Ratio 1.1 Activated Partial Thromboplast Time 26.1 Blood Urea Nitrogen 17 Creatinine 0.74 Random Glucose 127 Calcium Level 8.9 Sodium Level 138 Potassium Level 3.4 Chloride Level 99 Carbon Dioxide Level 27.8 Anion Gap 11 Estimat Glomerular Filtration Rate 105 Result Diagram: 01/29/18 1605 01/29/18 1605 Imaging Last 48 hours Impressions Pelvis X-Ray 01/29/18 0000 Signed Impressions: Service Date/Time: Monday, January 29, 2018 15:41 - CONCLUSION: Comminuted and angulated intratrochanteric fracture of the right side. Efrain Montague MD Head CT 01/29/18 0000 Signed Impressions: Service Date/Time: Monday, January 29, 2018 18:54 - CONCLUSION: 1. No acute intracranial abnormalities. Peter Nicolas MD Femur X-Ray 01/29/18 0000 Signed Impressions: Service Date/Time: Monday, January 29, 2018 15:43 - CONCLUSION: Comminuted and angulated intertrochanteric fracture. Efrain Montague MD Chest X-Ray 01/29/18 0000 Signed Impressions: Service Date/Time: Monday, January 29, 2018 16:43 - CONCLUSION: 1. COPD changes. 2. Via and also the right suggesting previous lobectomy. Go Rangel MD Caprini VTE Risk Assessment Caprini VTE Risk Assessment: Mod/High Risk (score >= 2) Caprini Risk Assessment Model Point Value = 1 Point Value = 2 Point Value = 3 Point Value = 5 Age 41-60 Minor surgery BMI > 25 kg/m2 Swollen legs Varicose veins or History of unexplained or recurrent spontaneous Oral contraceptives or hormone replacement Sepsis (< 1 month) Serious lung disease, including pneumonia (< 1 month) Abnormal pulmonary function Acute myocardial infarction Congestive heart failure (< 1 month) History of inflammatory bowel disease Medical patient at bed rest Age 61-74 Arthroscopic surgery Major open surgery (> 45 min) Laparoscopic surgery (> 45 min) Malignancy Confined to bed (> 72 hours) Immobilizing plaster cast Central venous access Age >= 75 History of VTE Family history of VTE Factor V Leiden Prothrombin [id number] Lupus anticoagulant Anticardiolipin antibodies Elevated serum homocysteine Heparin-induced thrombocytopenia Other congenital or acquired thrombophilia Stroke (< 1 month) Elective arthroplasty Hip, pelvis, or leg fracture Acute spinal cord injury (< 1 month) Prophylaxis Regimen Total Risk Factor Score Risk Level Prophylaxis Regimen 0-1 Low Early ambulation 2 Moderate Order ONE of the following: *Sequential Compression Device (SCD) *Heparin 5000 units SQ BID 3-4 Higher Order ONE of the following medications: *Heparin 5000 units SQ TID *Enoxaparin/Lovenox 40 mg SQ daily (WT < 150 kg, CrCl > 30 mL/min) *Enoxaparin/Lovenox 30 mg SQ daily (WT < 150 kg, CrCl > 10-29 mL/min) *Enoxaparin/Lovenox 30 mg SQ BID (WT < 150 kg, CrCl > 30 mL/min) AND/OR *Sequential Compression Device (SCD) 5 or more Highest Order ONE of the following medications: *Heparin 5000 units SQ TID (Preferred with Epidurals) *Enoxaparin/Lovenox 40 mg SQ daily (WT < 150 kg, CrCl > 30 mL/min) *Enoxaparin/Lovenox 30 mg SQ daily (WT < 150 kg, CrCl > 10-29 mL/min) *Enoxaparin/Lovenox 30 mg SQ BID (WT < 150 kg, CrCl > 30 mL/min) AND *Sequential Compression Device (SCD) Assessment and Plan Assessment and Plan Impression: Right intertrochanteric fracture Status post fall. Unwitnessed Possible syncope Cachexia Dizziness. Likely secondary to poor nutrition/orthostatics. Leukocytosis with left shift Mild hypokalemia Loud carotid bruit on the left side on examination. Prior carotid ultrasound in October 2017 reviewed. No evidence of hemodynamically significant stenosis. Systolic murmur at aortic area with radiation to the neck. Suspect underlying aortic stenosis. Recent UTI. Was on outpatient antibiotics according to the sister. Hypertension History of lung cancer/squamous cell carcinoma in 2010. Status post lobectomy and chemotherapy in 2011, decided to stop chemo in [address] Guajardo. He was lost to follow-up with them by 2013. COPD PAD with LE stenting CVA BPH. Hard of hearing Carotid artery stenosis status post left CEA Plan: N.p.o. Pain control. Orthopedics was consulted. Recent carotid artery ultrasound reviewed. No hemodynamically significant stenosis. Echocardiogram in a.m. Patient is medically cleared with high risk for ORIF. Discussed with patient's sister and [id number] in detail. Would consult palliative care to clarify goals of care and also to consider patient for hospice evaluation. Pain control. Patient's BP is elevated. I do believe that this is mostly due to pain. Patient was previously on Lasix 20 mg p.o. daily dose. If no significant orthostatics, will resume such dose. Nursing orders have been written to obtain patient's medications list from his pharmacy. He goes to [employer] and [email or web address] at [facility] on a A1A Start patient on cefazolin 1 g IV every 8 hours for both UTI and perioperative. Send UA/urine culture DVT prophylaxis with SCD. Discussed Condition With Patient, her sister, ER PA, [id number] Physician Certification 2 Midnight Certification Type: Admission for Inpatient Services Order for Inpatient Services The services are ordered in accordance with Medicare regulations or non- Medicare payer requirements, as applicable. In the case of services not specified as inpatient-only, they are appropriately provided as inpatient services in accordance with the 2-midnight benchmark. Estimated LOS (days): 4 days is the estimated time the patient will need to remain in the hospital, assuming treatment plan goals are met and no additional complications. Post-Hospital Plan: Not yet determined Bebeto Mercado MD Jan 29, 2018 18:39
[2018-01-29] MEDS ORDERED: LABETALOL HCL 100 MG/20 ML VIAL IV PUSH PRN (19:00)
--- NOTE | 2018-01-29 19:11 | RADRPT ---
EXAM DATE/TIME: 01/29/2018 18:54 [place] COMPARISON: No previous studies available for comparison. INDICATIONS : Fall, confusion RADIATION DOSE: 64.62 CTDIvol (mGy) MEDICAL HISTORY : Hypertension. Cardiovascular disease Carcinoma, lung.Mesenteric aneurysm SURGICAL HISTORY : None. ENCOUNTER: Initial ACUITY: 1 day PAIN SCALE: 7/10 LOCATION: cranial TECHNIQUE: Multiple contiguous axial images were obtained of the head. Using automated exposure control and adj ustment of the mA and/or kV according to patient size, radiation dose was kept as low as reasonably a chievable to obtain optimal diagnostic quality images. DICOM format image data is available electro nically for review and comparison. FINDINGS: CEREBRUM: The ventricles are normal for age. No evidence of midline shift, mass lesion, hemorrhage or acute in farction. No extra-axial fluid collections are seen. POSTERIOR FOSSA: The cerebellum and brainstem are intact. The 4th ventricle is midline. The cerebellopontine angle i s unremarkable. EXTRACRANIAL: The visualized portion of the orbits is intact. SKULL: The calvaria is intact. No evidence of skull fracture. CONCLUSION: 1. No acute intracranial abnormalities. Peter Nicolas MD on January 29, 2018 at 19:07 Board Certified Radiologist. This report was verified electronically.
[2018-01-29] MEDS ORDERED: cloNIDine HCL 0.1 MG TAB PO ONE (20:00)
[2018-01-29] MEDS: SODIUM CHLORIDE 0.9% FLUSH 10 ML FLUSH IV FLUSH SCH (21:00)
[2018-01-29 23:17] LABS: AMORPHOUS SEDIMENT, URINE RARE; BACTERIA, URINE OCC /hpf; BILIRUBIN, URINE NEG (NEG); BLOOD, URINE MOD (NEG); CALCIUM OXALATE CRYSTALS,URINE FEW /hpf; GLUCOSE,URINE NEG (NEG); KETONE, URINE TRACE mg/dL (NEG); MUCUS URINE FEW /lpf (OCC); NITRITE,URINE NEG (NEG); PH, URINE 5.5 (5.0-8.5); TRANSITIONAL EPI CELLS, URINE <1 /hpf; URINE COLOR YELLOW (YELLW/STRAW); URINE LEUKOCYTE ESTERASE NEG (NEG)
[2018-01-30] VITALS (9 sets, daily range): BP systolic 123–188; BP diastolic 59–79; PULSE 52–90; RESP 17–18; TEMP 97.6–98.9; O2SAT 93–98
[2018-01-30] MEDS ORDERED: SODIUM CHLORID 0.9% 500 ML IV PRN (01:15)
[2018-01-30] MEDS ORDERED: POVIDONE IODINE 5% (ANTISEPSIS KIT) 4 APPLICATIONS EACH NARE PRN (01:15)
[2018-01-30] MEDS ORDERED: CHLORHEXIDINE GLUCONATE 2 % 1 PACK (2 CLOTHS) TOPICAL PRN (01:15)
[2018-01-30] MEDS: LACTATED RINGER'S 1000 ML IV PRN (06:06)
--- NOTE | 2018-01-30 06:41 | PD.ORT.PN ---
Subjective Subjective Remarks Mechanical fall at sutures house with pain to right hip. Was unable to ambulate. X-rays show a intertrochanteric femur fracture Objective Vitals Vital Signs Date Time Temp Pulse Resp B/P (MAP) Pulse Ox O2 Delivery O2 Flow Rate FiO2 01/30/18 01:50 78 01/30/18 00:30 98.7 90 18 156/77 (103) 96 01/29/18 23:47 01/29/18 21:38 84 14 136/69 (91) 100 Room Air 01/29/18 20:21 84 16 110/59 (76) 100 Room Air 01/29/18 17:50 110 195/91 (125) 01/29/18 17:26 113 21 209/97 (134) 01/29/18 17:21 107 25 227/139 (168) 01/29/18 15:15 96 Room Air 01/29/18 15:03 98.9 102 18 194/100 (131) 98 Result Diagram: 01/29/18 1605 01/29/18 1605 Other Results Laboratory Tests Test 01/29/18 16:05 Prothromb Time International Ratio 1.1 RATIO Prothrombin Time 11.2 SEC (9.8-11.6) Imaging Last 72 hours Impressions Pelvis X-Ray 01/29/18 0000 Signed Impressions: Service Date/Time: Monday, January 29, 2018 15:41 - CONCLUSION: Comminuted and angulated intratrochanteric fracture of the right side. Efrain Montague MD Head CT 01/29/18 0000 Signed Impressions: Service Date/Time: Monday, January 29, 2018 18:54 - CONCLUSION: 1. No acute intracranial abnormalities. Peter Nicolas MD Femur X-Ray 01/29/18 0000 Signed Impressions: Service Date/Time: Monday, January 29, 2018 15:43 - CONCLUSION: Comminuted and angulated intertrochanteric fracture. Efrain Montague MD Chest X-Ray 01/29/18 0000 Signed Impressions: Service Date/Time: Monday, January 29, 2018 16:43 - CONCLUSION: 1. COPD changes. 2. Via and also the right suggesting previous lobectomy. Go Rangel MD Objective Remarks Bilateral upper extremities: Full range of motion neurovascular intact Left lower extremity: Full range of motion with no pain and motion Right lower extremity: Pain to palpation and movement of hip. Distally intact sensation with active dorsal flexion and plantar flexion of foot. Assessment & Plan Assessment and Plan Right intertrochanteric femur fracture Nothing by mouth Sign consents Surgery for reduction of right femur and intramedullary jemma fixation Jt Mendoza Jr. Jan 30, 2018 06:41
[2018-01-30 06:55] LABS: AUTOMATED NEUTROPHIL # 10.3 TH/MM3 (1.8-7.7); BASOPHIL % 0.2 % (0.0-2.0); EOSINOPHIL % 0.1 % (0.0-4.0); HEMATOCRIT 27.2 % (39.0-51.0); HEMOGLOBIN 9.2 GM/DL (13.0-17.0); LYMPH % 8.7 % (9.0-44.0); LYMPHOCYTE # 1.1 TH/MM3 (1.0-4.8); MEAN CELL VOLUME 95.4 FL (80.0-100.0); MEAN CORPUSCULAR HEMOGLOBIN 32.3 PG (27.0-34.0); MEAN CORPUSCULAR HGB CONC 33.8 % (32.0-36.0); MEAN PLATELET VOLUME 7.3 FL (7.0-11.0); MONO % 8.9 % (0.0-8.0); MONOCYTE # 1.1 TH/MM3 (0-0.9); NEUT % 82.1 % (16.0-70.0); PLATELET COUNT 340 TH/MM3 (150-450); RED BLOOD COUNT 2.85 MIL/MM3 (4.50-5.90); RED CELL DISTRIBUTION WIDTH 15.8 % (11.6-17.2); WHITE BLOOD COUNT 12.5 TH/MM3 (4.0-11.0)
[2018-01-30 07:29] LABS: BICARBONATE 30.8 MEQ/L (21.0-32.0); CALCIUM 8.2 MG/DL (8.5-10.1); CREATININE 0.64 MG/DL (0.60-1.30)
[2018-01-30] MEDS ORDERED: ACETAMINOPHEN 1000 MG/100 ML 100 ML IV ONE (07:30)
[2018-01-30] MEDS ORDERED: METOPROLOL TARTRATE 25 MG TAB PO PRN (08:15)
[2018-01-30] MEDS ORDERED: GENTAMICIN SULFATE 80 MG/2 ML VIAL ONE (08:19)
[2018-01-30] MEDS ORDERED: BUPIVACAINE/EPINEPHRINE 0.25% PF 10 ML VIAL ONE (08:22)
[2018-01-30] MEDS ORDERED: ceFAZolin INJ 1,000 MG VIAL ONE (08:48)
[2018-01-30] MEDS ORDERED: VANCOMYCIN HCL 1000 MG VIAL ONE (08:49)
[2018-01-30] MEDS: SODIUM CHLORIDE 0.9% FLUSH 10 ML FLUSH IV FLUSH SCH ×2 (09:00→21:00)
[2018-01-30] MEDS ORDERED: CHLORHEXIDINE GLUCONATE 0.12% 15 ML CUP ONE (09:03)
[2018-01-30] MEDS ORDERED: HYDR-3580 PO (09:09)
[2018-01-30] MEDS ORDERED: WALKER/ADULT/FO1 MIS (09:09)
[2018-01-30] MEDS ORDERED: VITA2000 PO (09:09)
[2018-01-30] MEDS ORDERED: CALCTAB19 PO (09:09)
[2018-01-30] MEDS ORDERED: VITA500012 PO (09:09)
[2018-01-30] MEDS ORDERED: XARE10TA PO (09:09)
--- NOTE | 2018-01-30 09:23 | PD.OP ---
cc: Mingo Kellogg MD Operative Report Date of Surgery: Jan 30, 2018 Preoperative Diagnosis: Displaced right hip intertrochanteric fracture Postoperative Diagnosis: Procedure: Right hip reduction and intramedullary nail fixation Anesthesia: Gen. Surgeon: Mingo Kellogg Rehab Physician(s): LETTY Hook PA-C The surgical procedure was assisted by my physician social human services assistants. My P.A. presence was necessary throughout this case for the manipulation and positioning of the surgical extremity. My P.A. was assisting me throughout the duration of this procedure. The skill set of a physician social human services assistants was medically necessary to complete this procedure. During the surgical case the surgical services tech was working at the back table and the physician social human services assistants was directly assisting me. Operation and Findings: Implants used: [13]mm x [380]mm Biomet troch nail Plan of activity: Weight-bear as tolerated Patient was seen and evaluated preoperatively. The patient has significant hip pain from proximal femur fracture. The risk and benefits of surgery were discussed in depth with the patient to include bleeding, infection, nonunion, malunion, need for hip replacement, painful hardware, as well as medical competitions including blood clots, stroke, heart attack, and . Informed consent was obtained. Operative site was marked. Patient was brought to the operating room and placed on fracture table. IV sedation was administered by anesthesiologist. Timeout procedure was performed. Hip and leg were prepped with alcohol followed by DuraPrep and draped in the usual sterile fashion. IV antibiotics were given prior to incision. Procedure began with reduction of fracture. Traction was applied. The leg was manipulated to achieve reduction. Excellent reduction was achieved. Fluoroscopy was used to confirm reduction. A three inch incision was made proximal to the trochanter. Subcutaneous tissue was dissected bluntly. Guidepin was placed at the tip of the trochanter and advanced into the femoral canal. Fluoroscopy confirmed appropriate guidepin placement. A opening reamer was placed over the guidepin. A long ball tipped guide pin was now placed down the femoral canal into the center of the distal femur. The nail length was now measured. Fluoroscopy confirmed appropriate guidepin placement. Flexible reamers were now passed over the guidepin to ream the intramedullary canal. The nail was opened and attached to the insertion handle. Nail was now placed over the guidepin into the femoral canal. Fluoroscopy confirmed appropriate nail placement. A second incision was made over the lateral thigh. Cannulas were placed through the insertion handle down to the femur. Guidepin was now placed through the femoral nail into the center of the femoral head. Fluoroscopy confirmed appropriate guidepin placement. Screw length was measured. Cannulated drill was placed over the guidepin. Appropriate length lag screw was now placed. Traction was released and compression was applied. The set screw was now tightened in dynamic mode. Next, using perfect wrangell technique two distal interlocking screws were placed. Screw holes were predrilled and screw lengths were measured. Final fluoroscopy revealed well aligned fracture with well-placed hardware. Incision was closed with 3-0 Vicryl and grace. Sterile dressings were applied. Patient was awakened and transferred to recovery room. Mingo Kellogg MD Jan 30, 2018 09:23
[2018-01-30] MEDS ORDERED: MORPHINE SULFATE 2 MG/ML SYRINGE IV PUSH PRN (09:30)
[2018-01-30] MEDS ORDERED: diphenhydrAMINE HCL 25 MG CAP PO PRN (09:30)
[2018-01-30] MEDS ORDERED: ONDANSETRON HCL 4 MG/2 ML VIAL IVP PRN (09:30)
--- NOTE | 2018-01-30 09:35 | PD.CONS ---
HPI Service Orthopedic Surgeons Consult Requested By Primary Care Physician Unknown Admission Diagnosis Right hip fracture, hypertension Diagnoses: History of Present Illness Teddy is a 72-year-old male. He had a fall proximal he 4 days ago at home. He describes a mechanical fall. He denies dizziness, syncope, or loss of consciousness. He landed on his right hip. He had immediate right hip pain. He has been unable to stand or ambulate. He has been staying in a chair. Pain is worse with motion. Pain is improved with rest. He presented to the emergency room where x-rays revealed a displaced right hip intertrochanteric fracture. He is currently awake and alert on the orthopedic floor. His only complaint is his right hip. He denies any hip pain prior to this fall. He states that he normally ambulates independently. Review of Systems Constitutional: DENIES: Diaphoretic episodes, Fatigue, Fever, Weight gain, Weight loss, Chills, Dizziness, Change in appetite, Night Sweats Eyes: DENIES: Blurred vision, Diplopia, Eye inflammation, Eye pain, Vision loss , Photosensitivity, Double Vision Ears, nose, mouth, throat: DENIES: Tinnitus, Hearing loss, Vertigo, Nasal discharge, Oral lesions, Throat pain, Hoarseness, Ear Pain, Running Nose, Epistaxis, Sinus Pain, Toothache, Odynophagia Respiratory: DENIES: Apneas, Cough, Snoring, Wheezing, Hemoptysis, Sputum production, Shortness of breath Cardiovascular: DENIES: Chest pain, Palpitations, Syncope, Dyspnea on Exertion , PND, Lower Extremity Edema, Orthopnea, Claudication Gastrointestinal: DENIES: Abdominal pain, Black stools, Bloody stools, Constipation, Diarrhea, Nausea, Vomiting, Difficulty Swallowing, Anorexia Hematologic/lymphatic: DENIES: Bruising, Lymphadenopathy Immunologic/allergic: DENIES: Eczema, Urticaria Psychiatric: DENIES: Anxiety, Confusion, Mood changes, Depression, Hallucinations, Agitation, Suicidal Ideation, Homicidal Ideation, Delusions Past Family Social History Past Medical History Hypertension History of lung cancer/squamous cell carcinoma in 2010. Status post lobectomy and chemotherapy in 2011, decided to stop chemo [place] [address] Guajardo. He was lost to follow-up with them by 2013. COPD PAD with LE stenting CVA BPH. Hard of hearing Past Surgical History lobectomy LE stents carotid artery sx Bronchoscopy L2 kyphoplasty in March 2017 Allergies: Coded Allergies: oxycodone (Unverified Allergy, Mild, Hives, 11/17/17) tramadol (Unverified Allergy, Mild, Itching, 11/17/17) Hzfqzae-Vxi-Rew Reductase Inhibitor (Unverified Allergy, Unknown, 11/17/17) sertraline (Unverified Allergy, Unknown, 11/17/17) Active Ordered Medications Current Medications Medications (Trade) Dose Ordered Sig/Dayana Route Start Time Stop Time Status Last Admin (NS Flush) 2 ml UNSCH PRN IV FLUSH 01/29/18 17:45 (NS Flush) 2 ml BID IV FLUSH 01/29/18 21:00 (Narcan Inj) 0.4 mg UNSCH PRN IV PUSH 01/29/18 17:45 (Morphine Inj) 2 mg Q3H PRN IV PUSH 01/29/18 17:45 01/29/18 19:28 (Trandate Inj) 10 mg Q20M PRN IV PUSH 01/29/18 19:00 Cefazolin Sodium 1000 mg/Sodium Chloride 100 ml @ 200 mls/hr Q8H IV 01/29/18 23:00 01/30/18 06:06 Lactated Ringer's 1,000 ml @ 30 mls/hr Q24H PRN IV 01/30/18 01:15 02/02/18 01:14 01/30/18 06:06 Sodium Chloride 500 ml @ 30 mls/hr [id number] PRN IV 01/30/18 01:15 02/02/18 01:14 (Betadine 5% Antisepsis Kit) 1 applic BELT POLISHER PRN EACH NARE 01/30/18 01:15 02/02/18 01:14 (Chlorhexidine 2% Cloth) 3 pack BELT POLISHER PRN TOPICAL 01/30/18 01:15 02/02/18 01:14 (Lopressor) 25 mg BELT POLISHER PRN PO 01/30/18 08:15 02/02/18 08:14 Reported Meds & Active Scripts Active Calcium 600+D 200 (Calcium Carbonate-Vitamin D) 600-200 Mg-Unit Tab 1 Tab PO BID 30 Days Vitamin D3 (Cholecalciferol) 2,000 Unit Cap 2,000 Units PO DAILY Ergocalciferol 50,000 Unit Cap 50,000 Units PO Q7D Xarelto (Rivaroxaban) 10 Mg Tab 10 Mg PO DAILY Hydrocodone-Acetaminophen 7.5 Mg-325 Mg Tab 1 Tab PO Q4H PRN Ventolin Hfa 18 GM Inh (Albuterol Sulfate) 90 Mcg/Act Aer 2 Puff INH Q4-6H PRN Atrovent HFA 12.9 GM Inh (Ipratropium Hollis) 17 Mcg/Actuation Aer 2 Puff INH Q6HR PRN Lisinopril 20 Mg Tab 20 Mg PO DAILY Seroquel (Quetiapine Fumarate) 25 Mg Tab 25 Mg PO BID 30 Days Trazodone (Trazodone HCl) 100 Mg Tablet 100 Mg PO HS Thera Tablet (Multivitamin with Folic Acid) 400 Mcg Tablet 1 Tab PO DAILY Gnp Vitamin B-1 (Thiamine HCl) 100 Mg Tab 100 Mg PO DAILY [guaiFENesin ER] 600 MG Tabcr 600 Mg PO BID [Budeson-Formot 160-4.5 Mcg Inh] 60 PUFF Aero 2 Puff INH Q12HR Aspirin DR (Aspirin) 81 Mg Tabdr 81 Mg PO DAILY Reported Finasteride 5 Mg Tab 5 Mg PO DAILY Do not crush. Family History none As far as the family knows Social History Still smokes cigarettes. Denies any alcohol abuse or drug abuse. Lives with his sister. Patient is from [facility]. He has children but do not really keep in touch with him. Physical Exam Vital Signs Vital Signs Date Time Temp Pulse Resp B/P (MAP) Pulse Ox O2 Delivery O2 Flow Rate FiO2 01/30/18 04:42 97.6 87 18 135/72 (93) 96 01/30/18 01:50 78 01/30/18 00:30 98.7 90 18 156/77 (103) 96 01/29/18 23:47 01/29/18 21:38 84 14 136/69 (91) 100 Room Air 01/29/18 20:21 84 16 110/59 (76) 100 Room Air 01/29/18 17:50 110 195/91 (125) 01/29/18 17:26 113 21 209/97 (134) 01/29/18 17:21 107 25 227/139 (168) 01/29/18 15:15 96 Room Air 01/29/18 15:03 98.9 102 18 194/100 (131) 98 Laboratory Laboratory Tests Test 01/29/18 16:05 01/29/18 22:30 01/30/18 06:21 White Blood Count 17.5 12.5 Red Blood Count 3.34 2.85 Hemoglobin 10.6 9.2 Hematocrit 31.9 27.2 Mean Corpuscular Volume 95.3 95.4 Mean Corpuscular Hemoglobin 31.7 32.3 Mean Corpuscular Hemoglobin Concent 33.3 33.8 Red Cell Distribution Width 15.7 15.8 Platelet Count 441 340 Mean Platelet Volume 6.9 7.3 Neutrophils (%) (Auto) 92.4 82.1 Lymphocytes (%) (Auto) 2.2 8.7 Monocytes (%) (Auto) 5.3 8.9 Eosinophils (%) (Auto) 0.0 0.1 Basophils (%) (Auto) 0.1 0.2 Neutrophils # (Auto) 16.2 10.3 Lymphocytes # (Auto) 0.4 1.1 Monocytes # (Auto) 0.9 1.1 Eosinophils # (Auto) 0.0 0.0 Basophils # (Auto) 0.0 0.0 CBC Comment DIFF FINAL DIFF FINAL Differential Comment Prothrombin Time 11.2 Prothromb Time International Ratio 1.1 Activated Partial Thromboplast Time 26.1 Blood Urea Nitrogen 17 17 Creatinine 0.74 0.64 Random Glucose 127 106 Calcium Level 8.9 8.2 Sodium Level 138 138 Potassium Level 3.4 3.8 Chloride Level 99 103 Carbon Dioxide Level 27.8 30.8 Anion Gap 11 4 Estimat Glomerular Filtration Rate 105 124 Urine Color YELLOW Urine Turbidity HAZY Urine pH 5.5 Urine Specific Ripton 1.018 Urine Protein TRACE Urine Glucose (UA) NEG Urine Ketones TRACE Urine Occult Blood MOD Urine Nitrite NEG Urine Bilirubin NEG Urine Urobilinogen LESS THAN 2.0 Urine Leukocyte Esterase NEG Urine RBC 112 Urine WBC 4 Urine Transitional Epithelial Cells <1 Urine Calcium Oxalate Crystals FEW Urine Amorphous Sediment RARE Urine Bacteria OCC Urine Mucus FEW Microscopic Urinalysis Comment CATH-CULTURE IND Date/Time Source Procedure Growth Status 01/29/18 22:30 Urine Catheterized Urine Urine Culture Pending Received Result Diagram: 01/30/1862001/30/18 0621 Course Teddy is a very thin 72-year-old male who appears malnourished. He is awake and alert. He answers questions appropriately. He is in no acute distress. Patient is normocephalic. Pupils are equal Neck is soft and nontender. Trachea is midline Abdomen is soft nontender nondistended Extremities: Examination of bilateral upper extremities reveals no pain with shoulder, elbow, wrist motion. Skin is intact. Sensation is intact. Radial pulses are palpable. Brim Edge Trimmer strength is +5. Examination of left lower extremity reveals no pain with hip, knee, or ankle motion. Skin is intact. Sensation is intact. Dorsalis pedis pulses palpable. Examination of right lower extremity reveals that right leg is shortened and external rotated. He is tender to palpation on his hip. He has pain with any hip motion. He has no tenderness on his knee tibia or ankle. Skin is intact. Sensation is intact. Dorsalis pedis pulse is palpable. Assessment & Plan Assessment and Plan Teddy has a displaced Right intertrochanteric femur fracture. I discussed the risk and benefits of surgery. Risk of surgery include bleeding, infection, nonunion, malunion, painful hardware, need for further surgery, as well as medical complications including blood clots, stroke, heart attack, and . All questions were answered. I also discussed with him the need to stop smoking to improve his chances of healing. I will plan on surgery today. Nothing by mouth Sign consents Surgery for reduction of right femur and intramedullary jemma fixation Mingo Velázquez MD Jan 30, 2018 09:35
[2018-01-30] MEDS ORDERED: DO NOT ADM ANY ANTICOAGULANT DRUGS PRN (09:43)
--- NOTE | 2018-01-30 10:01 | RADRPT ---
EXAM DATE/TIME: 01/30/2018 08:50 [facility] COMPARISON: FEMUR RIGHT (AP & LAT/2VWS), January 29, 2018, 15:43. INDICATIONS : Right hip troch nail. MEDICAL HISTORY : Hypertension. Cardiovascular disease Carcinoma, lung. Mesenteric aneurysm. SURGICAL HISTORY : None. ENCOUNTER: Initial ACUITY: 1 day PAIN SCORE: Non-responsive. LOCATION: Right hip FINDINGS: Interim trochanteric nail and long femoral jemma fixation of the intertrochanteric fracture. Alignment is near-anatomic. No new fracture. No evidence of hardware failure or loosening. CONCLUSION: Interim nail and jemma fixation of intertrochanteric fracture in near-anatomic alignment. No evidence o f an acute complication. Hayden Andino MD on January 30, 2018 at 9:58 Board Certified Radiologist. This report was verified electronically.
--- NOTE | 2018-01-30 10:13 | PD.CONS ---
Consult Service Palliative Care . Consult Requested By Dr. Mercado . Primary Care Physician Unknown Reason for Consultation a. To assist with evaluation and management of symptoms including: pain, debility b. To assist medical decision maker(s) with: better understanding of current medical conditions; weighing benefits/burdens of medical treatment options; making medical treatment decisions. . (Genna Saldana) HPI History of Present Illness Mr. Velasco is a 72-year-old [place] of [facility] with a known medical history that includes bronchogenic cancer s/p lobectomy; chronic back pain; anemia; benign prostatic hypertrophy; coronary artery disease s/p CABG; COPD; depression; hypertension; hyperlipidemia; opioid dependency; and stroke who presented to [facility] ED on 01/29/2018 with complaints of right hip pain after a fall earlier in the day. Patient stated he fell at home but he was unable to describe whether he tripped over something or not; he was uncertain if he passed out or hit his head. Pain was described as sharp and stabbing without radiation; exacerbated with motion. Additional diagnostic data: * Chest x-ray revealed COPD changes and evidence of previous lobectomy on the right. * CT head showed no acute intracranial abnormalities. * Femur x-ray and pelvis x-ray showed comminuted and angulated intertrochanteric fracture. * Vital signs: Pulse 102, respirations 18, BP 194/100, oxygen saturation 98% on room air and oral temperature 98.9 * WBC: 17.5, hemoglobin 10.6, hematocrit 31.9, platelets 441, neutrophils 92.4% * Sodium: 138, potassium 3.4, chloride 99, carbon dioxide 27.8, glucose 127, calcium 8.9 * BUN: 17, creatinine 0.74, GFR 105 * PT: 11.2, INR 1.1, APTT 26.1 * Urinalysis indicative of UTI; urine culture pending Patient received IV morphine for pain and Zofran for nausea. His blood pressure was elevated at 194/100 and the patient was given IV hydralazine. Patient has a known history of hypertension but stated he had not taken his blood pressure medications for several weeks because he had run out. Orthopedic surgery, Dr. Velázquez, evaluated the patient. Risks and benefits of surgery were discussed. Surgical consents were signed and the patient was taken to the OR for reduction of right femur and intra-medullary jemma fixation. Palliative Care was consulted to assist with symptom management and to discuss with the family the benefits and burdens of his current illnesses and the options regarding future care. Function/Cognitive Trajectory Patient's sister reports the patient had been feeling dizzy for the past 2-3 weeks. She also stated that the patient had not been eating well. She noted some weight loss but he did not share how much weight. He had been having night sweats for some time. As far as the sister knows, patient is cancer free. Patient was reportedly ambulating independently prior to his recent fall. . (Genna Saldana) Past Family Social History Coded Allergies: oxycodone (Unverified Allergy, Mild, Hives, 02/04/18) tramadol (Unverified Allergy, Mild, Itching, 02/04/18) Bwtymyj-Cya-Wnq Reductase Inhibitor (Unverified Allergy, Unknown, 02/04/18) sertraline (Unverified Allergy, Unknown, 02/04/18) Past Medical History Squamous cell lung cancer s/p lobectomy and chemotherapy. Hypertension RENO-SPARKS B12 deficiency Chronic back pain BPH CAD s/p CABG Carotid artery stenosis COPD -- lungs with emphysematous changes Degenerative disc disease Hyperlipidemia Kyphosis for non-pathologic L2 compression fracture Opiate dependence currently on Suboxone Peripheral vascular disease Stroke 09/2011 . Past Surgical History CABG Carotid endarterectomy Ear surgery LE stents Gastric surgery for ulcer in [place] Lobectomy for bronchogenic carcinoma Kyphoplasty Mesenteric aneurysm repair . Reported Medications Finasteride 5 Mg Tab PO DAILY . Current Medications Medications (Trade) Dose Ordered Sig/[place] Route Start Time Stop Time Status Last Admin (NS Flush) 2 ml UNSCH PRN IV FLUSH 01/29/18 17:45 (NS Flush) 2 ml BID IV FLUSH 01/29/18 21:00 (Narcan Inj) 0.4 mg UNSCH PRN IV PUSH 01/29/18 17:45 (Morphine Inj) 2 mg Q3H PRN IV PUSH 01/29/18 17:45 01/29/18 19:28 (Trandate Inj) 10 mg Q20M PRN IV PUSH 01/29/18 19:00 Cefazolin Sodium 1000 mg/Sodium Chloride 100 ml @ 200 mls/hr Q8H IV 01/29/18 23:00 01/30/18 06:06 Lactated Ringer's 1,000 ml @ 30 mls/hr Q24H PRN IV 01/30/18 01:15 02/02/18 01:14 01/30/18 06:06 Sodium Chloride 500 ml @ 30 mls/hr [id number] PRN IV 01/30/18 01:15 02/02/18 01:14 (Betadine 5% Antisepsis Kit) 1 applic SYSTEM SOFTWARE PROGRAMMER PRN EACH NARE 01/30/18 01:15 02/02/18 01:14 (Chlorhexidine 2% Cloth) 3 pack SYSTEM SOFTWARE PROGRAMMER PRN TOPICAL 01/30/18 01:15 02/02/18 01:14 (Lopressor) 25 mg SYSTEM SOFTWARE PROGRAMMER PRN PO 01/30/18 08:15 02/02/18 08:14 (Lovenox Inj) 30 mg Q24H SQ 01/30/18 09:30 UNV Cefazolin Sodium 1000 mg/Sodium Chloride 100 ml @ 200 mls/hr Q8H IV 01/30/18 09:30 01/31/18 01:59 UNV (Zofran Inj) 4 mg Q4H PRN IVP 01/30/18 09:30 UNV (Benadryl) 25 mg Q6H PRN PO 01/30/18 09:30 UNV (Nadeau 7.5-325 Mg) 1 tab Q3H PRN PO 01/30/18 09:30 UNV (Morphine Inj) 3 mg Q3H PRN IV PUSH 01/30/18 09:30 UNV (Vitamin D3) 5,000 units DAILY PO 01/31/18 09:00 UNV (Drisdol) 50,000 units ONCE ONCE PO 01/30/18 09:30 01/30/18 09:31 UNV Family History Patient's mother had a stroke; father had heart disease and asthma. Patient had a brother who from brain cancer. . Substance Use Tobacco: Active smoker Alcohol: Known history of EtOH abuse-quit drinking approximately 15 years ago Prescription med abuse: Known history of prescription opiate abuse Illicits: None known . Psychosocial History Patient was born and raised in [facility] ([facility] He left [facility] before war, living in [place] before moving to the [place]. Patient speaks multiple languages including Tongan, Costa Rican, Bosnian and Uzbek. He has a high school education. 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 2nd is . Has two daughters -- one in [place] ( Venita), one in [place] (Vero) -- he is touch with both of them frequently by phone. Patient arranged for his sister, who he currently live with, to come to the [place]. He has 3 brothers in addition to this sister. One brother dide at age 40 from brain cancer. . Spiritual/Cultural Factors Per review of EMR, patient has stated that pentecostalism/spirituality do not play an important role in his life. . (Genna Saldana) Health Care Surrogate: Copy in medical record Date completed: 11/23/2017 . Health Care Surrogate(s): Healthcare surrogate designation form completed 11/23/2017, designates daughter ( Yoly) as the healthcare surrogate decision maker. . Ethical and Legal Issues No known ethical or legal issues impacting care at this time. . (Genna Saldana) Physical Exam Vital Signs Date Time Temp Pulse Resp B/P (MAP) Pulse Ox O2 Delivery O2 Flow Rate FiO2 01/30/18 09:45 70 16 141/63 (89) 100 Nasal Cannula 2 01/30/18 09:43 97.8 80 16 142/64 (90) 99 Nasal Cannula 2 01/30/18 04:42 97.6 87 18 135/72 (93) 96 01/30/18 01:50 78 01/30/18 00:30 98.7 90 18 156/77 (103) 96 01/29/18 23:47 01/29/18 21:38 84 14 136/69 (91) 100 Room Air 01/29/18 20:21 84 16 110/59 (76) 100 Room Air 01/29/18 17:50 110 195/91 (125) 01/29/18 17:26 113 21 209/97 (134) 01/29/18 17:21 107 25 227/139 (168) 01/29/18 15:15 96 Room Air 01/29/18 15:03 98.9 102 18 194/100 (131) 98 01/30/18 01/31/18 19:00 07:00 Intake Total 700 ml Output Total 350 ml Balance 350 ml Other 700 ml Output Urine Total 300 ml Estimated Blood Loss 50 ml Exam CONSTITUTIONAL/GENERAL: This is a cachectic, chronically ill appearing male patient in no acute distress TUBES/LINES/DRAINS:PIV SKIN: No jaundice, rashes, or lesions.Skin temperature appropriate. Not diaphoretic. HEAD: Atraumatic. Normocephalic. EYES: Pupils equal and round and reactive. Extraocular motions intact. No scleral icterus. No injection or drainage. Fundi not examined. ENT: Hearing grossly normal. Nose without bleeding or purulent drainage. Throat without visible erythema, exudates, masses, or lesions. NECK: Trachea midline. Supple, nontender. No palpable thyroid enlargement or nodularity. CARDIOVASCULAR: Regular rate and rhythm without murmurs, gallops, or rubs. No JVD. Peripheral pulses symmetric. RESPIRATORY/CHEST: Symmetric, unlabored respirations. Clear to auscultation. Breath sounds equal bilaterally. No wheezes, rales, or rhonchi. GASTROINTESTINAL: Abdomen soft, non-tender, nondistended. No hepato-splenomegaly , or palpable masses. No guarding. Bowel sounds present. GENITOURINARY: Without palpable bladder distension. MUSCULOSKELETAL: Extremities without clubbing, cyanosis, or edema. LYMPHATICS: No palpable cervical or supraclavicular adenopathy. NEUROLOGICAL: Lethargic postoperatively. Arouses briefly to verbal stimuli. PSYCHIATRIC: No obvious anxiety/depression. No apparent hallucinations or other psychotic thought process. . (Genna Saldana) Diagnostic Tests Laboratory Laboratory Tests Test 01/29/18 16:05 01/29/18 22:30 01/30/18 06:21 White Blood Count 17.5 TH/MM3 (4.0-11.0) 12.5 TH/MM3 (4.0-11.0) Red Blood Count 3.34 MIL/MM3 (4.50-5.90) 2.85 MIL/MM3 (4.50-5.90) Hemoglobin 10.6 GM/DL (13.0-17.0) 9.2 GM/DL (13.0-17.0) Hematocrit 31.9 % (39.0-51.0) 27.2 % (39.0-51.0) Mean Corpuscular Volume 95.3 FL (80.0-100.0) 95.4 FL (80.0-100.0) Mean Corpuscular Hemoglobin 31.7 PG (27.0-34.0) 32.3 PG (27.0-34.0) Mean Corpuscular Hemoglobin Concent 33.3 % (32.0-36.0) 33.8 % (32.0-36.0) Red Cell Distribution Width 15.7 % (11.6-17.2) 15.8 % (11.6-17.2) Platelet Count 441 TH/MM3 (150-450) 340 TH/MM3 (150-450) Mean Platelet Volume 6.9 FL (7.0-11.0) 7.3 FL (7.0-11.0) Neutrophils (%) (Auto) 92.4 % (16.0-70.0) 82.1 % (16.0-70.0) Lymphocytes (%) (Auto) 2.2 % (9.0-44.0) 8.7 % (9.0-44.0) Monocytes (%) (Auto) 5.3 % (0.0-8.0) 8.9 % (0.0-8.0) Eosinophils (%) (Auto) 0.0 % (0.0-4.0) 0.1 % (0.0-4.0) Basophils (%) (Auto) 0.1 % (0.0-2.0) 0.2 % (0.0-2.0) Neutrophils # (Auto) 16.2 TH/MM3 (1.8-7.7) 10.3 TH/MM3 (1.8-7.7) Lymphocytes # (Auto) 0.4 TH/MM3 (1.0-4.8) 1.1 TH/MM3 (1.0-4.8) Monocytes # (Auto) 0.9 TH/MM3 (0-0.9) 1.1 TH/MM3 (0-0.9) Eosinophils # (Auto) 0.0 TH/MM3 (0-0.4) 0.0 TH/MM3 (0-0.4) Basophils # (Auto) 0.0 TH/MM3 (0-0.2) 0.0 TH/MM3 (0-0.2) CBC Comment DIFF FINAL DIFF FINAL Differential Comment Prothrombin Time 11.2 SEC (9.8-11.6) Prothromb Time International Ratio 1.1 RATIO Activated Partial Thromboplast Time 26.1 SEC (24.3-30.1) Blood Urea Nitrogen 17 MG/DL (7-18) 17 MG/DL (7-18) Creatinine 0.74 MG/DL (0.60-1.30) 0.64 MG/DL (0.60-1.30) Random Glucose 127 MG/DL (74-106) 106 MG/DL (74-106) Calcium Level 8.9 MG/DL (8.5-10.1) 8.2 MG/DL (8.5-10.1) Sodium Level 138 MEQ/L (136-145) 138 MEQ/L (136-145) Potassium Level 3.4 MEQ/L (3.5-5.1) 3.8 MEQ/L (3.5-5.1) Chloride Level 99 MEQ/L (98-107) 103 MEQ/L (98-107) Carbon Dioxide Level 27.8 MEQ/L (21.0-32.0) 30.8 MEQ/L (21.0-32.0) Anion Gap 11 MEQ/L (5-15) 4 MEQ/L (5-15) Estimat Glomerular Filtration Rate 105 ML/MIN (>89) 124 ML/MIN (>89) Urine Color YELLOW (YELLW/STRAW) Urine Turbidity HAZY (CLEAR) Urine pH 5.5 (5.0-8.5) Urine Specific [place] 1.018 (1.002-1.035) Urine Protein TRACE mg/dL (NEG-TRACE) Urine Glucose (UA) NEG mg/dL (NEG) Urine Ketones TRACE mg/dL (NEG) Urine Occult Blood MOD (NEG) Urine Nitrite NEG (NEG) Urine Bilirubin NEG (NEG) Urine Urobilinogen LESS THAN 2.0 MG/DL (LESS Urine Leukocyte Esterase NEG (NEG) Urine RBC 112 /hpf (0-3) Urine WBC 4 /hpf (0-5) Urine Transitional Epithelial Cells <1 /hpf (NONE) Urine Calcium Oxalate Crystals FEW /hpf (NONE) Urine Amorphous Sediment RARE Urine Bacteria OCC /hpf (NONE) Urine Mucus FEW /lpf (OCC) Microscopic Urinalysis Comment CATH-CULTURE IND . (Genna Saldana) Result Diagram: 01/30/18 0621 01/30/18 0621 Microbiology Microbiology Date/Time Source Procedure Growth Status 01/29/18 22:30 Urine Catheterized Urine Urine Culture Pending Received Imaging Last 72 hours Impressions Hip X-Ray 01/30/18 0000 Signed Impressions: Service Date/Time: Tuesday, January 30, 2018 08:50 - CONCLUSION: Interim nail and jemma fixation of intertrochanteric fracture in near-anatomic alignment. No evidence of an acute complication. Hayden Andino MD Pelvis X-Ray 01/29/18 0000 Signed Impressions: Service Date/Time: Monday, January 29, 2018 15:41 - CONCLUSION: Comminuted and angulated intratrochanteric fracture of the right side. Efrain Montague MD Head CT 01/29/18 0000 Signed Impressions: Service Date/Time: Monday, January 29, 2018 18:54 - CONCLUSION: 1. No acute intracranial abnormalities. Peter Nicolas MD Femur X-Ray 01/29/18 0000 Signed Impressions: Service Date/Time: Monday, January 29, 2018 15:43 - CONCLUSION: Comminuted and angulated intertrochanteric fracture. Efrain Montague MD Chest X-Ray 01/29/18 0000 Signed Impressions: Service Date/Time: Monday, January 29, 2018 16:43 - CONCLUSION: 1. COPD changes. 2. Via and also the right suggesting previous lobectomy. Go Rangel MD . (Genna Saldana) Patient/Family Conference Present at Family Conference: Spoke with patient daughter, Venita who is the HCS via telephone. She was unaware of the patient's recent fall or subsequent hospitalization with surgery. . Family Conference Location: Telephone Issues Discussed: * Palliative care role, purpose, approach * Additional medical, psychosocial, and spiritual history * Patients general health, functional status, and cognitive changes in the months leading up to the current hospitalization * Patient/family understanding of the current medical problems * Patient/family understanding of prognosis * Patients goals of care as best understood from advance directives and/or conversations and/or values * Current medical treatment options and benefits/burdens of those options * Likely scenarios comparing ongoing aggressive care with a transition to comfort measures only * Questions answered to the best of my ability * Palliative care contact information provided . (Genna Saldana) Assessment and Plan Disease Oriented Problem List: (1) Leukocytosis (2) Recent urinary tract infection (3) COPD (chronic obstructive pulmonary disease) (4) CVA (cerebral vascular accident) (5) BPH (benign prostatic hyperplasia) (6) Chronic back pain (7) Cachexia (8) COPD exacerbation (9) Hypertension (10) Intertrochanteric fracture of right femur Symptom Scale: (1) Debility 0-10 Scale: Unable to quantify (2) Pain 0-10 Scale: Unable to quantify Pertinent Non-Medical Issues Psychosocial: [place]. Some college. 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 Two daughters -- one in [place], one in [place]. Lives locally with his sister. Spiritual: Has not played an important role in his life. "I believe that whatever a pentecostalism a person has the right one if it works for them." Legal: Ethical issues impacting care: No known ethical issues impacting care at this time. Important Contacts * Naomi Matson (sister) [phone] * Venita (daughter in [place] and patient's health care surrogate) [phone] * Vero (daughter in [facility] ) [phone] . Prognosis Patient's history, degree of cachexia, productive cough, reported weight loss, night sweats, and anemia are very suggestive of recurrence of his lung cancer. If he does have a recurrence, I don't think he will be a candidate for further aggressive cancer directed treatments and a transition to "comfort measures only " and hospice would probably be appropriate. It is also possible that the patient's cachexia is due to underlying COPD as well as other comorbid conditions. He is at risk for ongoing complications and decline. . Code Status: Full Code Plan * FULL CODE * Decision-making: Healthcare surrogate designation form completed 11/23/2017, designates daughter (Venita) as the healthcare surrogate decision maker. * Discussed patient with bedside nurse ([place]); voicemail left for foster care case manager (Reny). * Palliative care spoke to the patient's daughter, Venita, who is also designated as the HCS decision-maker. She was unaware that her father had been hospitalized yesterday 01/29/2018; she was unaware at that he was having surgery this morning. An update was provided on the nature of the patient's injuries, hospital course thus far and clinical condition s/p for reduction of the right femur and intramedullary jemma fixation. * AGGRESSIVE GOALS- pending further conversations with daughter (Venita) who just found out her father was in the hospital this afternoon at 1452. At the time of our conversation, Venita, is requesting the patient be made and FULL CODE. She desires SNF placement for rehab upon discharge with possible transition to long-term care placement if indicated. * SYMPTOM MANAGEMENT: = Pain: Multifactoral. Status post surgical repair of comminuted and angulated intertrochanteric fracture. Other triggering factors include cachexia, invasive lines, bedbound status, chronic back pain, impaired circulation, potential for recurrent cancer, dyspnea etc. Current orders for Nadeau 7-325mg PO q3 hours PRN for and morphine 3mg IV q3 hours PRN. Patient has received Nadeau 1 postoperatively. Monitor for signs of nonverbal pain as well as verbally reported pain. Patient has a history of dependency on prescription medications. He was transitioned to Suboxone prior to his last hospitalization in 10/2017 and reported he was satisfied with the level of pain management it provided. If pain becomes an issue for this patient, would recommend getting him back on the Suboxone = Debility: Patient is a frail and cachectic with reported recent weight loss , now with a fall requiring surgical repair. He will require SNF placement upon discharge for rehab, possibly transitioning to long-term placement. * Palliative care will continue to follow to assist with symptom management and to help understand goals of medical treatment as the clinical course evolves. * . (Genna Saldana) Thank you for the opportunity to participate in the care of Mr. Broderick . (Genna Saldana) Attestation To help prompt me to consider important information that might be impacting today's encounter and assessment, information from prior notes written by myself or my colleagues may have been "brought forward" into today's note. My signature on this note, however, is an attestation that I personally performed the exam, history, and/or decision-making noted today, and, unless otherwise indicated, the interactions with patient, family, and staff as well as the review of records all occurred today. I also attest that the listed assessment and stated plan reflect my best clinical judgment today based on the combination of historical information, prior notes, and today's exam/ interactions. When time spent is documented, it refers only to time spent today by the signer, or if indicated, combined time spent today by collaborating physician/nurse practitioner. . (Genna Saldana) Collaborating MD Comments Chart reviewed. Case discussed with palliative care CAR FILLER. Above CAR FILLER note reviewed and I concur. . (Jossue Beckham MD) Genna Saldana Jan 30, 2018 10:13 Jossue Beckham MD Feb 05, 2018 05:44
[2018-01-30] MEDS ORDERED: *morphine SULFATE 4 MG/ML PERIprocedure ONLY ONE ×2 (10:22→11:10)
[2018-01-30] MEDS ORDERED: *ENALAPRILAT 1.25 MG/ML VIAL PERIprocedural Use ONLY ONE (10:22)
[2018-01-30] MEDS ORDERED: ERGOCALCIFEROL (VIT D2) 50,000 UNIT CAP PO ONE (12:00)
[2018-01-30] MEDS ORDERED: PHENYLEPH/NS 1000 MCG/10 ML SYR IV ONE (12:00)
[2018-01-30] MEDS ORDERED: ROCURONIUM INJ 50 MG/5 ML SYRINGE IV PUSH ONE (12:00)
[2018-01-30] MEDS ORDERED: SODIUM CHLOR 0.9% 250 ML INJ 250 ML IV ONE (12:00)
[2018-01-30] MEDS ORDERED: LIDOCAINE HCL 1% PF 5 ML SYRINGE OTHER ONE (12:00)
[2018-01-30] MEDS ORDERED: PROPOFOL 200 MG/20 ML AMP IV ONE (12:00)
[2018-01-30] MEDS ORDERED: ePHEDrine/NS 25 MG/5 ML SYRINGE IV ONE (12:00)
[2018-01-30] MEDS ORDERED: ONDANSETRON HCL 4 MG/2 ML VIAL IV ONE (12:00)
[2018-01-30] MEDS ORDERED: CLON1TAB PO (12:29)
[2018-01-30] MEDS ORDERED: PANT20TA2 PO (12:29)
[2018-01-30] MEDS ORDERED: SUBO8MIS SL (12:29)
[2018-01-30] MEDS ORDERED: ALPR0.25 PO (12:29)
[2018-01-30] MEDS ORDERED: RANI150T PO (12:29)
[2018-01-30] MEDS: ACETAMINOPHEN/HYDROcodone 325 MG/7.5 MG TAB PO PRN ×3 (12:54→22:39)
--- NOTE | 2018-01-30 16:02 | HHI.PR ---
Subjective Remarks c/o right hip pain Denies cp/sob Afebrile Objective Vitals Vital Signs Date Time Temp Pulse Resp B/P (MAP) Pulse Ox O2 Delivery O2 Flow Rate FiO2 01/30/18 16:01 98.4 78 17 170/76 (107) 97 01/30/18 12:00 97.8 83 17 188/79 (115) 94 01/30/18 11:00 97.0 68 16 157/70 (99) 97 Nasal Cannula 2 01/30/18 10:30 79 16 168/73 (104) 99 Nasal Cannula 2 01/30/18 10:15 71 16 175/75 (108) 100 Nasal Cannula 2 01/30/18 10:00 70 16 169/69 (102) 100 Nasal Cannula 2 01/30/18 09:45 70 16 141/63 (89) 100 Nasal Cannula 2 01/30/18 09:43 97.8 80 16 142/64 (90) 99 Nasal Cannula 2 01/30/18 04:42 97.6 87 18 135/72 (93) 96 01/30/18 01:50 78 01/30/18 00:30 98.7 90 18 156/77 (103) 96 01/29/18 23:47 01/29/18 21:38 84 14 136/69 (91) 100 Room Air 01/29/18 20:21 84 16 110/59 (76) 100 Room Air 01/29/18 17:50 110 195/91 (125) 01/29/18 17:26 113 21 209/97 (134) 01/29/18 17:21 107 25 227/139 (168) I/O 01/29/18 01/29/18 01/29/18 01/30/18 01/30/18 01/30/18 07:00 15:00 23:00 07:00 15:00 23:00 Intake Total 100 ml 765 ml Output Total 350 ml Balance 100 ml 415 ml Intake Oral 0 ml IV Total 100 ml 65 ml Other 700 ml Output Urine Total 300 ml Estimated Blood Loss 50 ml # Voids 1 # Bowel Movements 0 Result Diagram: 01/30/18 0621 01/30/18 0621 Imaging Last Impressions Hip X-Ray 01/30/18 0000 Signed Impressions: Service Date/Time: Tuesday, January 30, 2018 08:50 - CONCLUSION: Interim nail and jemma fixation of intertrochanteric fracture in near-anatomic alignment. No evidence of an acute complication. Hayden Andino MD Pelvis X-Ray 01/29/18 0000 Signed Impressions: Service Date/Time: Monday, January 29, 2018 15:41 - CONCLUSION: Comminuted and angulated intratrochanteric fracture of the right side. Efrain Montague MD Head CT 01/29/18 0000 Signed Impressions: Service Date/Time: Monday, January 29, 2018 18:54 - CONCLUSION: 1. No acute intracranial abnormalities. Peter Nicolas MD Femur X-Ray 01/29/18 0000 Signed Impressions: Service Date/Time: Monday, January 29, 2018 15:43 - CONCLUSION: Comminuted and angulated intertrochanteric fracture. Efrain Montague MD Chest X-Ray 01/29/18 0000 Signed Impressions: Service Date/Time: Monday, January 29, 2018 16:43 - CONCLUSION: 1. COPD changes. 2. Via and also the right suggesting previous lobectomy. Go Rangel MD Objective Remarks GENERAL: Thin cachectic elderly gentleman, not in acute distress. NAD Has his hearing aid on and able to answer yes or no questions. SKIN: No rashes, ecchymoses or lesions. Cool and dry. HEAD: Atraumatic. Normocephalic. No temporal or scalp tenderness. EYES:. No scleral icterus. No injection or drainage. ENT: Nose without bleeding, purulent drainage or septal hematoma. Airway patent. NECK: Trachea midline. No JVD Supple, nontender, no meningeal signs. CARDIOVASCULAR: Regular rate and rhythm without gallops, or rubs. Systolic murmur at aortic area with radiation to the neck Respiratory: Bilateral decreased air entry. GASTROINTESTINAL: Abdomen soft, non-tender, nondistended. No guarding. MUSCULOSKELETAL: Extremities without clubbing, cyanosis. No calf tenderness. Righ hip with dressing which looks C/D/I. No hematoma observed on right hip. NEUROLOGICAL: Awake and alert. Normal speech. Medications and IVs Current Medications Medications (Trade) Dose Ordered Sig/Dayana Route Start Time Stop Time Status Last Admin (NS Flush) 2 ml UNSCH PRN IV FLUSH 01/29/18 17:45 (NS Flush) 2 ml BID IV FLUSH 01/29/18 21:00 (Narcan Inj) 0.4 mg UNSCH PRN IV PUSH 01/29/18 17:45 (Trandate Inj) 10 mg Q20M PRN IV PUSH 01/29/18 19:00 Lactated Ringer's 1,000 ml @ 30 mls/hr Q24H PRN IV 01/30/18 01:15 02/02/18 01:14 01/30/18 06:06 Sodium Chloride 500 ml @ 30 mls/hr [id number] PRN IV 01/30/18 01:15 02/02/18 01:14 (Betadine 5% Antisepsis Kit) 1 applic APPLICATION ARCHITECT PRN EACH NARE 01/30/18 01:15 02/02/18 01:14 (Chlorhexidine 2% Cloth) 3 pack APPLICATION ARCHITECT PRN TOPICAL 01/30/18 01:15 02/02/18 01:14 (Lopressor) 25 mg APPLICATION ARCHITECT PRN PO 01/30/18 08:15 02/02/18 08:14 (Lovenox Inj) 30 mg Q24H SQ 01/31/18 09:00 Cefazolin Sodium 1000 mg/Sodium Chloride 100 ml @ 200 mls/hr Q8H IV 01/30/18 17:00 01/31/18 09:29 (Zofran Inj) 4 mg Q4H PRN IVP 01/30/18 09:30 (Benadryl) 25 mg Q6H PRN PO 01/30/18 09:30 (Vivian 7.5-325 Mg) 1 tab Q3H PRN PO 01/30/18 09:30 01/30/18 12:54 (Morphine Inj) 3 mg Q3H PRN IV PUSH 01/30/18 09:30 (Vitamin D3) 5,000 units DAILY PO 01/31/18 09:00 Miscellaneous Information ALL NURSING DEPARTME... UNSCH PRN .XX 01/30/18 09:43 01/31/18 09:42 A/P Problem List: (1) Intertrochanteric fracture of right femur ICD Code: S72.141A - Displaced intertrochanteric fracture of right femur, initial encounter for closed fracture Status: Acute Plan: Status post Right hip reduction and intramedullary nail fixation. Pain control as per orthopedic surgery. Patient currently on Vivian and IV morphine for breakthrough pain. (2) Sepsis ICD Code: A41.9 - Sepsis, unspecified organism Plan: Present on admission. The patient presented with leukocytosis 17.5 K, with increased neutrophil percentage of 92.4, heart rate of 102 and increased respiratory rate more than 20. Sepsis likely secondary to urinary tract infection. Continue cefazolin IV. Follow-up urine culture and adjust antibiotics accordingly. Sepsis clinically improving, leukocytosis trending down and on 12 K. The patient is a febrile. Team to monitor CBC with differential. (3) UTI (urinary tract infection) ICD Code: N39.0 - Urinary tract infection, site not specified Plan: Management as above. Follow-up urine culture. (4) H/O: CVA (cerebrovascular accident) ICD Code: Z86.73 - Personal history of transient ischemic attack (TIA), and cerebral infarction without residual deficits Plan: Aspirin on Xarelto on hold due to surgical procedure. Resume as soon as orthopedic surgery clears that it is okay to resume these medications. (5) BPH (benign prostatic hyperplasia) ICD Code: N40.0 - Benign prostatic hyperplasia without lower urinary tract symptoms Plan: Continue tamsulosin. (6) COPD (chronic obstructive pulmonary disease) ICD Code: J44.9 - Chronic obstructive pulmonary disease, unspecified Plan: Seems to be stable. Patient not on COPD exacerbation. Some Atrovent and albuterol inhalers. (7) Uncontrolled hypertension ICD Code: I10 - Essential (primary) hypertension Plan: Blood pressure severely elevated with a systolic blood pressure in the 180s. I will resume home antihypertensive medications which include lisinopril 20 mg p.o. daily. Add clonidine as needed for systolic blood pressure more than 160. (8) Protein-calorie malnutrition, severe ICD Code: E43 - Unspecified severe protein-calorie malnutrition Plan: The patient has severe protein calorie malnutrition. Patient has a BMI of 15.1, looks cachectic. Consult dietitian. Assessment and Plan DVT prophylaxis: Lovenox subcutaneously as per orthopedic surgery. Discharge Planning Discharge pending orthopedic surgery clearance, stabilization of blood pressure. Problem Qualifiers (1) Intertrochanteric fracture of right femur: Qualified Codes: S72.144A - Nondisplaced intertrochanteric fracture of right femur, initial encounter for closed fracture (2) UTI (urinary tract infection): Qualified Codes: N30.00 - Acute cystitis without hematuria (3) BPH (benign prostatic hyperplasia): Qualified Codes: N40.0 - Benign prostatic hyperplasia without lower urinary tract symptoms Emmett Rolle MD Jan 30, 2018 16:02
[2018-01-30] MEDS ORDERED: IPRATROPIUM BROMIDE 17 MCG/ACT 12.9 GM INHALER INH PRN (16:30)
[2018-01-30] MEDS ORDERED: ALPRAZolam 0.25 MG TAB PO PRN (16:30)
[2018-01-30] MEDS ORDERED: ALBUTEROL SULFATE 90 MCG/ACT HFA 8 GM INHALER INH PRN (16:30)
[2018-01-30] MEDS: MULTIVITAMIN TAB PO SCH (16:30)
--- NOTE | 2018-01-30 16:47 | EKG ---
Date Performed: 01/29/2018 Time Performed: 17:15:41 PTAGE: 72 years EKG: SINUS TACHYCARDIA NONSPECIFIC T-WAVE ABNORMALITY Since previous tracing, no significant tyrell nge noted ABNORMAL RHYTHM ECG PREVIOUS TRACING : 11/17/2017 01.29 DOCTOR: Austin Figueroa Interpretating Date/Time 01/30/2018 16:44:05
[2018-01-30] MEDS ORDERED: ERGOCALCIFEROL (VIT D2) 50,000 UNIT CAP PO SCH (18:00)
[2018-01-30] MEDS: PANTOPRAZOLE SOD 20 MG DELAYED RELEASE TAB PO SCH (18:05)
[2018-01-30] MEDS: LISINOPRIL 20 MG TAB PO SCH (18:05)
[2018-01-30] MEDS: THIAMINE HCL 100 MG TAB PO SCH (18:06)
[2018-01-30] MEDS: BUDESONIDE-FORMOTEROL 160/4.5 MCG INHALER INH SCH (21:00)
[2018-01-30] MEDS: CALCIUM/VITAMIN D 250 MG/125 U TAB PO SCH (22:38)
[2018-01-30] MEDS: QUEtiapine FUMARATE 25 MG TAB PO SCH (22:38)
[2018-01-30] MEDS: traZODone HCL 100 MG TAB PO SCH (22:38)
[2018-01-31] VITALS (18 sets, daily range): BP systolic 109–137; BP diastolic 52–64; PULSE 57–81; RESP 17–20; TEMP 97.7–98.6; O2SAT 94–99
[2018-01-31] MEDS: ACETAMINOPHEN/HYDROcodone 325 MG/7.5 MG TAB PO PRN ×5 (03:00→20:59)
[2018-01-31 05:49] LABS: HEMATOCRIT 20.2 % (39.0-51.0); HEMOGLOBIN 6.9 GM/DL (13.0-17.0)
[2018-01-31] MEDS ORDERED: SODIUM CHLOR 0.9% 250 ML INJ 250 ML IV ONE (06:45)
[2018-01-31] MEDS ORDERED: FUROSEMIDE 20 MG/2 ML VIAL IV PUSH ONE (06:45)
--- NOTE | 2018-01-31 06:52 | PD.ORT.PN ---
Subjective Subjective Remarks POD 1 s/p IMN right hip patient slow to awaken. states "cold" Objective Vitals Vital Signs Date Time Temp Pulse Resp B/P (MAP) Pulse Ox O2 Delivery O2 Flow Rate FiO2 01/31/18 04:08 17 01/31/18 04:03 60 01/31/18 03:17 97.9 59 18 111/56 (74) 98 01/31/18 00:00 57 01/30/18 23:55 Nasal Cannula 2.00 01/30/18 22:20 98.9 61 17 135/62 (86) 97 01/30/18 20:07 98.5 58 17 123/59 (80) 98 01/30/18 20:00 52 01/30/18 16:01 98.4 78 17 170/76 (107) 97 01/30/18 12:00 97.8 83 17 188/79 (115) 94 01/30/18 11:00 97.0 68 16 157/70 (99) 97 Nasal Cannula 2 01/30/18 10:30 79 16 168/73 (104) 99 Nasal Cannula 2 01/30/18 10:15 71 16 175/75 (108) 100 Nasal Cannula 2 01/30/18 10:00 70 16 169/69 (102) 100 Nasal Cannula 2 01/30/18 09:45 70 16 141/63 (89) 100 Nasal Cannula 2 01/30/18 09:43 97.8 80 16 142/64 (90) 99 Nasal Cannula 2 I/O 01/30/18 01/30/18 01/30/18 01/31/18 01/31/18 01/31/18 06:59 14:59 22:59 06:59 14:59 22:59 Intake Total 100 ml 765 ml Output Total 500 ml 300 ml Balance 100 ml 265 ml -300 ml Intake Oral 0 ml IV Total 100 ml 65 ml Other 700 ml Output Urine Total 450 ml 300 ml Estimated Blood Loss 50 ml # Voids 1 # Bowel Movements 0 0 Result Diagram: 01/31/18 0438 01/30/18 0621 Imaging Last 72 hours Impressions Pelvis X-Ray 01/29/18 0000 Signed Impressions: Service Date/Time: Monday, January 29, 2018 15:41 - CONCLUSION: Comminuted and angulated intratrochanteric fracture of the right side. Efrain Montague MD Head CT 01/29/18 0000 Signed Impressions: Service Date/Time: Monday, January 29, 2018 18:54 - CONCLUSION: 1. No acute intracranial abnormalities. Peter Nicolas MD Femur X-Ray 01/29/18 0000 Signed Impressions: Service Date/Time: Monday, January 29, 2018 15:43 - CONCLUSION: Comminuted and angulated intertrochanteric fracture. Efrain Montague MD Chest X-Ray 01/29/18 0000 Signed Impressions: Service Date/Time: Monday, January 29, 2018 16:43 - CONCLUSION: 1. COPD changes. 2. Via and also the right suggesting previous lobectomy. Go Rangel MD Objective Remarks RLE: dressings clean and dry. intact. NVI Assessment & Plan Assessment and Plan 1) Right Intertroch hip fx s/p IMN - POD 1 -WBAT -DVT prophylaxis -pain control -surgeries complete -CM for DC planning -f/u with [facility] or PA in 2 weeks Ryan Crump PA/Immigration Inspector PA Jan 31, 2018 06:52
[2018-01-31] MEDS: SODIUM CHLORIDE 0.9% FLUSH 10 ML FLUSH IV FLUSH SCH ×2 (09:00→21:00)
[2018-01-31] MEDS: LACTATED RINGER'S 1000 ML IV PRN (09:00)
[2018-01-31] MEDS: ENOXAPARIN SODIUM 30 MG/0.3 ML SYRINGE SQ SCH (09:00)
[2018-01-31] MEDS: MULTIVITAMIN TAB PO SCH (09:01)
[2018-01-31] MEDS: FINASTERIDE 5 MG TAB PO SCH (09:01)
[2018-01-31] MEDS: QUEtiapine FUMARATE 25 MG TAB PO SCH ×2 (09:01→20:59)
[2018-01-31] MEDS: LISINOPRIL 20 MG TAB PO SCH (09:01)
[2018-01-31] MEDS: CHOLECALCIFEROL (VIT D3) 5000 UNIT CAP PO SCH (09:01)
[2018-01-31] MEDS: CALCIUM/VITAMIN D 250 MG/125 U TAB PO SCH ×2 (09:01→20:59)
[2018-01-31] MEDS: THIAMINE HCL 100 MG TAB PO SCH (09:01)
[2018-01-31] MEDS: PANTOPRAZOLE SOD 20 MG DELAYED RELEASE TAB PO SCH (09:01)
[2018-01-31] MEDS: CHOLECALCIFEROL (VIT D3) 1000 UNIT TAB PO SCH (09:01)
[2018-01-31] MEDS: BUDESONIDE-FORMOTEROL 160/4.5 MCG INHALER INH SCH ×2 (09:03→20:59)
--- NOTE | 2018-01-31 12:39 | ECHRPT ---
Indication: MURMUR CONCLUSIONS Normal left ventricular size. EF@55% Wall thickness is normal. The left ventricular systolic function is grossly normal on limited imaging. [id number] mitral valve regurgitation. There is trace tricuspid valve regurgitation. technically limited study, subcostal views only BP: 135 / 72 HR: 87 Rhythm: Sinus MEASUREMENTS (Male / Female) Normal Values Technical Quality:Fair 2D ECHO LV Diastolic Diameter PLAX 5.4 cm 4.2 - 5.9 / 3.9 - 5.3 cm LV Systolic Diameter PLAX 3.2 cm IVS Diastolic Thickness 0.8 cm 0.6 - 1.0 / 0.6 - 0.9 cm LVPW Diastolic Thickness 0.8 cm 0.6 - 1.0 / 0.6 - 0.9 cm LV Relative Wall Thickness 0.3 RV Internal Dim ED PLAX 2.2 cm DOPPLER AV Peak Velocity 120.0 cm/s AV Peak Gradient 5.8 mmHg AV Mean Gradient 3.0 mmHg AV Velocity Time Integral 25.1 cm LVOT Peak Velocity 56.4 cm/s LVOT Peak Gradient 1.3 mmHg LVOT Velocity Time Integral 13.5 cm Mitral E Point Velocity 55.3 cm/s Mitral A Point Velocity 58.2 cm/s Mitral E to A Ratio 1.0 LV E' Lateral Velocity 10.3 cm/s Mitral E to LV E' Lateral Ratio 5.4 LV E' Septal Velocity 5.8 cm/s Mitral E to LV E' Septal Ratio 9.6 TR Peak Velocity 187.0 cm/s TR Peak Gradient 14.0 mmHg Right Atrial Pressure 10.0 mmHg Pulmonary Artery Systolic Pressu 24.0 mmHg Right Ventricular Systolic Press 24.0 mmHg PV Peak Velocity 69.9 cm/s PV Peak Gradient 2.0 mmHg FINDINGS LEFT VENTRICLE Normal left ventricular size. Wall thickness is normal. The left ventricular systolic function is grossly normal on limited imaging. RIGHT VENTRICLE Normal right ventricular size and systolic function. LEFT ATRIUM The left atrial size is normal. RIGHT ATRIUM The right atrial size is normal. ATRIAL SEPTUM The interatrial septum not well visualized. AORTA The aortic root and proximal ascending aorta are not well visualized. MITRAL VALVE [id number] mitral valve regurgitation. AORTIC VALVE Trileaflet aortic valve. No aortic valve stenosis or regurgitation. TRICUSPID VALVE There is trace tricuspid valve regurgitation. PULMONARY VALVE No pulmonary valve regurgitation or stenosis. VESSELS The inferior vena cava is normal in size. PERICARDIUM No pericardial effusion. John Belem MD, FACC, FSCAI (Electronically Signed) Final Date:31 January 2018 12:38
--- NOTE | 2018-01-31 15:33 | HHI.HCPN ---
Reason for visit a. To assist with evaluation and management of symptoms including: pain, debility b. To assist medical decision maker(s) with: better understanding of current medical conditions; weighing benefits/burdens of medical treatment options; making medical treatment decisions. . (Genna Saldana) Subjective/Interval History Follow up visit for symptom management and clarification of medical treatment goals status post surgical repair of right intratrochanteric hip fracture. Patient was seen and assessed in room 1628. Appeared to be sleeping. Patient aroused easily to verbal stimuli but remained lethargic throughout exam. Case management working towards discharge; plan for outpatient follow-up with Dr. Velázquez or PA in 2 weeks. Patient endorses right hip pain when asked, rated 8 out of 10 and described as aching/sore. Renovo and IV morphine are available PRN. 24 hour PRN requirement = Renovo 7.5-325mg x 5. H/H dropped to 6.9/20.2 this morning with subsequent transfusion; PT was held today due to symptomatic anemia. Patient was able to ambulate approximately 20 feet with rolling walker yesterday, fair stable balance and minimum assist 2. Palliative care spoke to the patient's daughter/HCS this afternoon. Medical treatment goals remain aggressive with discharge plan to transition to a SNF for rehab. Venita, daughter, verbalizes concerns that the patient may require more care than his sister can provide in the home. If this is the case, the patient may need to transition to skilled nursing NH placement. Hospice was introduced today 01/31/18. The patient's daughter does not feel they are ready to transition to comfort focus goals at this time, but she is considering meeting with hospice, for informational purposes only. Discussed with case management assistantReny. . Family/friend interactions See interval note . (Genna Saldana) Advance Directives Health Care Surrogate: Copy in medical record (Genna Saldana) Advance Directive Specifics Date completed: 11/23/2017 . Health Care Surrogate(s): Healthcare surrogate designation form completed 11/23/2017, designates daughter ( Yoly) as the healthcare surrogate decision maker. . (Genna Saldana) Objective Vital Signs Date Time Temp Pulse Resp B/P (MAP) Pulse Ox O2 Delivery O2 Flow Rate FiO2 01/31/18 13:34 68 01/31/18 13:00 97.7 81 17 109/56 95 01/31/18 12:20 98.2 70 17 131/61 (84) 98 01/31/18 12:17 68 01/31/18 09:39 57 01/31/18 08:00 98.6 62 20 128/59 (82) 99 01/31/18 07:50 57 01/31/18 04:08 17 01/31/18 04:03 60 01/31/18 03:17 97.9 59 18 111/56 (74) 98 01/31/18 00:00 57 01/30/18 23:55 Nasal Cannula 2.00 01/30/18 22:20 98.9 61 17 135/62 (86) 97 01/30/18 20:07 98.5 58 17 123/59 (80) 98 01/30/18 20:00 52 01/30/18 16:01 98.4 78 17 170/76 (107) 97 Intake & Output 01/31/18 01/31/18 06:59 18:59 Intake Total 100 ml 1535 ml Output Total 300 ml Balance -200 ml 1535 ml IV Total 100 ml 1535 ml Output Urine Total 300 ml . Physical Exam CONSTITUTIONAL/GENERAL: This is an adequately nourished patient, in no apparent distress. TUBES/LINES/DRAINS: PIV SKIN: Ecchymoses on upper extremities. Right hip surgical wound with [place] dressing D&I. HEAD: Atraumatic. Normocephalic. EYES: Pupils equal and round and reactive. Extraocular motions intact. No scleral icterus. No injection or drainage. Fundi not examined. ENT: Hearing grossly normal. Nose without bleeding or purulent drainage. Throat without visible erythema, exudates, masses, or lesions. NECK: Trachea midline. Supple, nontender. No palpable thyroid enlargement or nodularity. CARDIOVASCULAR: Regular rate and rhythm without murmurs, gallops, or rubs. No JVD. Peripheral pulses symmetric. RESPIRATORY/CHEST: Symmetric, unlabored respirations. Clear to auscultation. Breath sounds equal bilaterally. No wheezes, rales, or rhonchi. GASTROINTESTINAL: Abdomen soft, non-tender, nondistended. No hepato-splenomegaly , or palpable masses. No guarding. Bowel sounds present. GENITOURINARY: Without palpable bladder distension. MUSCULOSKELETAL: Extremities without clubbing, cyanosis, or edema. LYMPHATICS: No palpable cervical or supraclavicular adenopathy. NEUROLOGICAL: Arouses to verbal stimuli. Lethargic. Responds to simple questions with 1-2 word answers; follows simple commands PSYCHIATRIC: No obvious anxiety/depression. No apparent hallucinations or other psychotic thought process. . (Genna Saldana) Diagnostic Tests Laboratory Laboratory Tests Test 01/29/18 16:05 01/29/18 22:30 01/30/18 06:21 01/31/18 04:38 White Blood Count 17.5 TH/MM3 (4.0-11.0) 12.5 TH/MM3 (4.0-11.0) Red Blood Count 3.34 MIL/MM3 (4.50-5.90) 2.85 MIL/MM3 (4.50-5.90) Hemoglobin 10.6 GM/DL (13.0-17.0) 9.2 GM/DL (13.0-17.0) 6.9 GM/DL (13.0-17.0) Hematocrit 31.9 % (39.0-51.0) 27.2 % (39.0-51.0) 20.2 % (39.0-51.0) Mean Corpuscular Volume 95.3 FL (80.0-100.0) 95.4 FL (80.0-100.0) Mean Corpuscular Hemoglobin 31.7 PG (27.0-34.0) 32.3 PG (27.0-34.0) Mean Corpuscular Hemoglobin Concent 33.3 % (32.0-36.0) 33.8 % (32.0-36.0) Red Cell Distribution Width 15.7 % (11.6-17.2) 15.8 % (11.6-17.2) Platelet Count 441 TH/MM3 (150-450) 340 TH/MM3 (150-450) Mean Platelet Volume 6.9 FL (7.0-11.0) 7.3 FL (7.0-11.0) Neutrophils (%) (Auto) 92.4 % (16.0-70.0) 82.1 % (16.0-70.0) Lymphocytes (%) (Auto) 2.2 % (9.0-44.0) 8.7 % (9.0-44.0) Monocytes (%) (Auto) 5.3 % (0.0-8.0) 8.9 % (0.0-8.0) Eosinophils (%) (Auto) 0.0 % (0.0-4.0) 0.1 % (0.0-4.0) Basophils (%) (Auto) 0.1 % (0.0-2.0) 0.2 % (0.0-2.0) Neutrophils # (Auto) 16.2 TH/MM3 (1.8-7.7) 10.3 TH/MM3 (1.8-7.7) Lymphocytes # (Auto) 0.4 TH/MM3 (1.0-4.8) 1.1 TH/MM3 (1.0-4.8) Monocytes # (Auto) 0.9 TH/MM3 (0-0.9) 1.1 TH/MM3 (0-0.9) Eosinophils # (Auto) 0.0 TH/MM3 (0-0.4) 0.0 TH/MM3 (0-0.4) Basophils # (Auto) 0.0 TH/MM3 (0-0.2) 0.0 TH/MM3 (0-0.2) CBC Comment DIFF FINAL DIFF FINAL Differential Comment Prothrombin Time 11.2 SEC (9.8-11.6) Prothromb Time International Ratio 1.1 RATIO Activated Partial Thromboplast Time 26.1 SEC (24.3-30.1) Blood Urea Nitrogen 17 MG/DL (7-18) 17 MG/DL (7-18) Creatinine 0.74 MG/DL (0.60-1.30) 0.64 MG/DL (0.60-1.30) Random Glucose 127 MG/DL (74-106) 106 MG/DL (74-106) Calcium Level 8.9 MG/DL (8.5-10.1) 8.2 MG/DL (8.5-10.1) Sodium Level 138 MEQ/L (136-145) 138 MEQ/L (136-145) Potassium Level 3.4 MEQ/L (3.5-5.1) 3.8 MEQ/L (3.5-5.1) Chloride Level 99 MEQ/L (98-107) 103 MEQ/L (98-107) Carbon Dioxide Level 27.8 MEQ/L (21.0-32.0) 30.8 MEQ/L (21.0-32.0) Anion Gap 11 MEQ/L (5-15) 4 MEQ/L (5-15) Estimat Glomerular Filtration Rate 105 ML/MIN (>89) 124 ML/MIN (>89) Urine Color YELLOW (YELLW/STRAW) Urine Turbidity HAZY (CLEAR) Urine pH 5.5 (5.0-8.5) Urine Specific [place] 1.018 (1.002-1.035) Urine Protein TRACE mg/dL (NEG-TRACE) Urine Glucose (UA) NEG mg/dL (NEG) Urine Ketones TRACE mg/dL (NEG) Urine Occult Blood MOD (NEG) Urine Nitrite NEG (NEG) Urine Bilirubin NEG (NEG) Urine Urobilinogen LESS THAN 2.0 MG/DL (LESS Urine Leukocyte Esterase NEG (NEG) Urine RBC 112 /hpf (0-3) Urine WBC 4 /hpf (0-5) Urine Transitional Epithelial Cells <1 /hpf (NONE) Urine Calcium Oxalate Crystals FEW /hpf (NONE) Urine Amorphous Sediment RARE Urine Bacteria OCC /hpf (NONE) Urine Mucus FEW /lpf (OCC) Microscopic Urinalysis Comment CATH-CULTURE IND 25-Hydroxy Vitamin D Total 4.3 ng/ML (30-100) . (Genna Saldana) Result Diagram: 01/31/18 0438 01/30/18 0621 Microbiology Microbiology Date/Time Source Procedure Growth Status 01/29/18 22:30 Urine Catheterized Urine Urine Culture - Final NO GROWTH IN 48 HOURS. Complete . Imaging Last 72 hours Impressions Hip X-Ray 01/30/18 0000 Signed Impressions: Service Date/Time: Tuesday, January 30, 2018 08:50 - CONCLUSION: Interim nail and jemma fixation of intertrochanteric fracture in near-anatomic alignment. No evidence of an acute complication. Hayden Andino MD Pelvis X-Ray 01/29/18 0000 Signed Impressions: Service Date/Time: Monday, January 29, 2018 15:41 - CONCLUSION: Comminuted and angulated intratrochanteric fracture of the right side. Efrain Montague MD Head CT 01/29/18 0000 Signed Impressions: Service Date/Time: Monday, January 29, 2018 18:54 - CONCLUSION: 1. No acute intracranial abnormalities. Peter Nicolas MD Femur X-Ray 01/29/18 0000 Signed Impressions: Service Date/Time: Monday, January 29, 2018 15:43 - CONCLUSION: Comminuted and angulated intertrochanteric fracture. Efrain Montague MD Chest X-Ray 01/29/18 0000 Signed Impressions: Service Date/Time: Monday, January 29, 2018 16:43 - CONCLUSION: 1. COPD changes. 2. Via and also the right suggesting previous lobectomy. Go Rangel MD . (Genna Saldana) Assessment and Plan Disease Oriented Problem List: (1) Leukocytosis (2) Recent urinary tract infection (3) COPD (chronic obstructive pulmonary disease) (4) CVA (cerebral vascular accident) (5) BPH (benign prostatic hyperplasia) (6) Chronic back pain (7) Cachexia (8) COPD exacerbation (9) Hypertension (10) Intertrochanteric fracture of right femur Symptom Scale: (1) Debility 0-10 Scale: Unable to quantify (2) Pain 0-10 Scale: 8 Pertinent Non-Medical Issues Psychosocial: [place]. Some college. 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 Two daughters -- one in [place], one in [place]. Lives locally with his sister. Spiritual: Has not played an important role in his life. "I believe that whatever a catholic a person has the right one if it works for them." Legal: Ethical issues impacting care: No known ethical issues impacting care at this time. Important Contacts * Naomi Matson (sister) [phone] * Venita (daughter in [place] and patient's health care surrogate) [phone] * Vero (daughter in [facility] ) [phone] . Prognosis Patient's history, degree of cachexia, productive cough, reported weight loss, night sweats, and anemia are very suggestive of recurrence of his lung cancer. If he does have a recurrence, I don't think he will be a candidate for further aggressive cancer directed treatments and a transition to "comfort measures only " and hospice would probably be appropriate. It is also possible that the patient's cachexia is due to underlying COPD as well as other comorbid conditions. He is at risk for ongoing complications and decline. . Code Status: Full Code Plan * FULL CODE * Decision-making: Healthcare surrogate designation form completed 11/23/2017. Daughter (Venita) is designated as the healthcare surrogate decision maker. * Discussed patient with case management assistant, Reny. * Palliative care spoke to the patient's daughter/HCS this afternoon. Medical treatment goals remain aggressive with discharge plan to transition to a SNF for rehab. Venita, daughter, verbalizes concerns that the patient may require more care than his sister can provide in the home. If this is the case, the patient may need to transition to [facility] or [facility] NH placement. Hospice was introduced today 01/31/18. The patient's daughter does not feel they are ready to transition to comfort focus goals at this time, but she is considering meeting with hospice, for informational purposes only. Discussed with case management assistant, Reny. * AGGRESSIVE GOALS * SYMPTOM MANAGEMENT: = Pain: Multifactoral. Status post surgical repair of comminuted and angulated intertrochanteric fracture. Other triggering factors include cachexia, invasive lines, bedbound status, chronic back pain, impaired circulation, potential for recurrent cancer, dyspnea etc. Patient endorses right hip pain when asked, rated 8 out of 10 and described as aching/sore. Renovo and IV morphine are available PRN. 24 hour PRN requirement = Renovo 7.5- 325mg x 5. Monitor for signs of nonverbal pain as well as verbally reported pain. Patient has a history of dependency on prescription medications. He was transitioned to Suboxone prior to his last hospitalization in 10/2017 and reported he was satisfied with the level of pain management it provided. If pain becomes an issue for this patient, would recommend getting him back on the Suboxone = Debility: Patient is a frail and cachectic with reported recent weight loss , now with a fall requiring surgical repair. He will require SNF placement upon discharge for rehab, possibly transitioning to long-term placement. * Palliative care will continue to follow to assist with symptom management and to help understand goals of medical treatment as the clinical course evolves. . (Genna Saldana) Attestation To help prompt me to consider important information that might be impacting today's encounter and assessment, information from prior notes written by myself or my colleagues may have been "brought forward" into today's note. My signature on this note, however, is an attestation that I personally performed the exam, history, and/or decision-making noted today, and, unless otherwise indicated, the interactions with patient, family, and staff as well as the review of records all occurred today. I also attest that the listed assessment and stated plan reflect my best clinical judgment today based on the combination of historical information, prior notes, and today's exam/ interactions. When time spent is documented, it refers only to time spent today by the signer, or if indicated, combined time spent today by collaborating physician/nurse practitioner. . (Genna Saldana) Collaborating MD Comments Chart reviewed. Case discussed with palliative care STRIPPER OPAQUER. Above STRIPPER OPAQUER note reviewed and I concur. . (Jossue Beckham MD) Genna Saldana Jan 31, 2018 15:33 Jossue Beckham MD Feb 05, 2018 05:44
[2018-01-31] MEDS: SODIUM CHLORIDE 0.9% FLUSH 10 ML FLUSH IV FLUSH PRN ×2 (15:43→16:08)
--- NOTE | 2018-01-31 18:26 | HHI.PR ---
Subjective Remarks pain controlled Denies cp/sob Objective Vitals Vital Signs Date Time Temp Pulse Resp B/P (MAP) Pulse Ox O2 Delivery O2 Flow Rate FiO2 01/31/18 18:01 78 01/31/18 16:40 98.2 76 17 109/55 95 01/31/18 16:30 80 01/31/18 15:35 98.0 61 17 137/62 99 01/31/18 13:34 68 01/31/18 13:00 97.7 81 17 109/56 95 01/31/18 12:20 98.2 70 17 131/61 (84) 98 01/31/18 12:17 68 01/31/18 09:39 57 01/31/18 08:00 98.6 62 20 128/59 (82) 99 01/31/18 07:50 57 01/31/18 04:08 17 01/31/18 04:03 60 01/31/18 03:17 97.9 59 18 111/56 (74) 98 01/31/18 00:00 57 01/30/18 23:55 Nasal Cannula 2.00 01/30/18 22:20 98.9 61 17 135/62 (86) 97 01/30/18 20:07 98.5 58 17 123/59 (80) 98 01/30/18 20:00 52 I/O 01/30/18 01/30/18 01/30/18 01/31/18 01/31/18 01/31/18 07:00 15:00 23:00 07:00 15:00 23:00 Intake Total 100 ml 765 ml 100 ml 1535 ml 405 ml Output Total 500 ml 300 ml 300 ml Balance 100 ml 265 ml -200 ml 1535 ml 105 ml Intake Oral 0 ml IV Total 100 ml 65 ml 100 ml 1535 ml Packed Cells 400 ml Blood Product IV Normal Saline Flush 5 ml Other 700 ml Output Urine Total 450 ml 300 ml 300 ml Estimated Blood Loss 50 ml # Voids 1 # Bowel Movements 0 0 Result Diagram: 01/31/18 0438 01/30/18 0621 Imaging Last 72 hours Impressions Hip X-Ray 01/30/18 0000 Signed Impressions: Service Date/Time: Tuesday, January 30, 2018 08:50 - CONCLUSION: Interim nail and jemma fixation of intertrochanteric fracture in near-anatomic alignment. No evidence of an acute complication. Hayden Andino MD Objective Remarks GENERAL: Thin cachectic elderly gentleman, not in acute distress. NAD Has his hearing aid on and able to answer yes or no questions. SKIN: No rashes, ecchymoses or lesions. Cool and dry. HEAD: Atraumatic. Normocephalic. No temporal or scalp tenderness. EYES:. No scleral icterus. No injection or drainage. ENT: Nose without bleeding, purulent drainage or septal hematoma. Airway patent. NECK: Trachea midline. No JVD Supple, nontender, no meningeal signs. CARDIOVASCULAR: Regular rate and rhythm without gallops, or rubs. Systolic murmur at aortic area with radiation to the neck Respiratory: Bilateral decreased air entry. GASTROINTESTINAL: Abdomen soft, non-tender, nondistended. No guarding. MUSCULOSKELETAL: Extremities without clubbing, cyanosis. No calf tenderness. Righ hip with dressing which looks C/D/I. No hematoma observed on right hip. NEUROLOGICAL: Awake and alert. Normal speech. A/P Problem List: (1) Intertrochanteric fracture of right femur ICD Code: S72.141A - Displaced intertrochanteric fracture of right femur, initial encounter for closed fracture Status: Acute (2) Sepsis ICD Code: A41.9 - Sepsis, unspecified organism (3) UTI (urinary tract infection) ICD Code: N39.0 - Urinary tract infection, site not specified (4) H/O: CVA (cerebrovascular accident) ICD Code: Z86.73 - Personal history of transient ischemic attack (TIA), and cerebral infarction without residual deficits (5) BPH (benign prostatic hyperplasia) ICD Code: N40.0 - Benign prostatic hyperplasia without lower urinary tract symptoms (6) COPD (chronic obstructive pulmonary disease) ICD Code: J44.9 - Chronic obstructive pulmonary disease, unspecified (7) Uncontrolled hypertension ICD Code: I10 - Essential (primary) hypertension (8) Protein-calorie malnutrition, severe ICD Code: E43 - Unspecified severe protein-calorie malnutrition Assessment and Plan (1) Intertrochanteric fracture of right femur ICD Code: S72.141A - Displaced intertrochanteric fracture of right femur, initial encounter for closed fracture Status: Acute Plan: Status post Right hip reduction and intramedullary nail fixation. Pain control as per orthopedic surgery. Patient currently on Weir and IV morphine for breakthrough pain. (2) Sepsis ICD Code: A41.9 - Sepsis, unspecified organism Plan: Present on admission. The patient presented with leukocytosis 17.5 K, with increased neutrophil percentage of 92.4, heart rate of 102 and increased respiratory rate more than 20. Sepsis likely secondary to urinary tract infection. Continue cefazolin IV. Follow-up urine culture and adjust antibiotics accordingly. Sepsis clinically improving, leukocytosis resolved. The patient is afebrile. Team to monitor CBC with differential. (3) UTI (urinary tract infection) ICD Code: N39.0 - Urinary tract infection, site not specified Plan: Management as above. urine culture no growth. (4) H/O: CVA (cerebrovascular accident) ICD Code: Z86.73 - Personal history of transient ischemic attack (TIA), and cerebral infarction without residual deficits Plan: Aspirin on Xarelto on hold due to surgical procedure. Resume as soon as orthopedic surgery clears that it is okay to resume these medications. (5) BPH (benign prostatic hyperplasia) ICD Code: N40.0 - Benign prostatic hyperplasia without lower urinary tract symptoms Plan: Continue tamsulosin. (6) COPD (chronic obstructive pulmonary disease) ICD Code: J44.9 - Chronic obstructive pulmonary disease, unspecified Plan: Seems to be stable. Patient not on COPD exacerbation. Some Atrovent and albuterol inhalers. (7) Uncontrolled hypertension ICD Code: I10 - Essential (primary) hypertension Plan: Blood pressure severely elevated with a systolic blood pressure in the 180s. I will resume home antihypertensive medications which include lisinopril 20 mg p.o. daily. Add clonidine as needed for systolic blood pressure more than 160. (8) Protein-calorie malnutrition, severe ICD Code: E43 - Unspecified severe protein-calorie malnutrition Plan: The patient has severe protein calorie malnutrition. Patient has a BMI of 15.1, looks cachectic. Consult dietitian. DVT prophylaxis: Lovenox subcutaneously as per orthopedic surgery. Discharge Planning Discharge pending orthopedic surgery clearance, stabilization of blood pressure. Problem Qualifiers (1) Intertrochanteric fracture of right femur: Qualified Codes: S72.144A - Nondisplaced intertrochanteric fracture of right femur, initial encounter for closed fracture (2) UTI (urinary tract infection): Qualified Codes: N30.00 - Acute cystitis without hematuria (3) BPH (benign prostatic hyperplasia): Qualified Codes: N40.0 - Benign prostatic hyperplasia without lower urinary tract symptoms Emmett Rolle MD Jan 31, 2018 18:26
[2018-01-31] MEDS: traZODone HCL 100 MG TAB PO SCH (20:59)
[2018-01-31 23:33] LABS: HEMATOCRIT 30.1 % (39.0-51.0); HEMOGLOBIN 10.4 GM/DL (13.0-17.0); MEAN CELL VOLUME 92.9 FL (80.0-100.0); MEAN CORPUSCULAR HEMOGLOBIN 32.2 PG (27.0-34.0); MEAN CORPUSCULAR HGB CONC 34.7 % (32.0-36.0); MEAN PLATELET VOLUME 7.3 FL (7.0-11.0); PLATELET COUNT 209 TH/MM3 (150-450); RED BLOOD COUNT 3.24 MIL/MM3 (4.50-5.90); RED CELL DISTRIBUTION WIDTH 16.3 % (11.6-17.2); WHITE BLOOD COUNT 9.2 TH/MM3 (4.0-11.0)
[2018-02-01] VITALS: PULSE 68
[2018-02-01] MEDS: ACETAMINOPHEN/HYDROcodone 325 MG/7.5 MG TAB PO PRN ×4 (01:07→12:10)
[2018-02-01 04:00] VITALS: BP 145/87; PULSE 66; PULSE 70; RESP 18; TEMP 98.5; O2SAT 97
--- NOTE | 2018-02-01 06:44 | PD.ORT.PN ---
Subjective Subjective Remarks Pain controlled and resting comfortably Objective Vitals Vital Signs Date Time Temp Pulse Resp B/P (MAP) Pulse Ox O2 Delivery O2 Flow Rate FiO2 02/01/18 06:38 18 02/01/18 04:00 66 02/01/18 04:00 98.5 70 18 145/87 (106) 97 02/01/18 00:00 68 01/31/18 23:26 Nasal Cannula 2.00 01/31/18 20:33 98.3 73 18 /64 96 01/31/18 20:33 98.6 69 18 137/64 96 01/31/18 20:29 78 01/31/18 20:00 98.2 76 20 123/52 (75) 94 01/31/18 18:46 77 01/31/18 18:01 78 01/31/18 16:40 98.2 76 17 109/55 95 01/31/18 16:30 80 01/31/18 15:35 98.0 61 17 137/62 99 01/31/18 13:34 68 01/31/18 13:00 97.7 81 17 109/56 95 01/31/18 12:20 98.2 70 17 131/61 (84) 98 01/31/18 12:17 68 01/31/18 09:39 57 01/31/18 08:00 98.6 62 20 128/59 (82) 99 01/31/18 07:50 57 I/O 01/31/18 01/31/18 01/31/18 02/01/18 02/01/18 02/01/18 07:00 15:00 23:00 07:00 15:00 23:00 Intake Total 100 ml 2085 ml 815 ml Output Total 300 ml 300 ml Balance -200 ml 2085 ml 515 ml Intake Oral 550 ml IV Total 100 ml 1535 ml Packed Cells 800 ml Blood Product IV Normal Saline Flush 15 ml Output Urine Total 300 ml 300 ml Result Diagram: 01/31/18 2314 01/30/18 0621 Imaging Last 72 hours Impressions Pelvis X-Ray 01/29/18 0000 Signed Impressions: Service Date/Time: Monday, January 29, 2018 15:41 - CONCLUSION: Comminuted and angulated intratrochanteric fracture of the right side. Efrain Montague MD Head CT 01/29/18 0000 Signed Impressions: Service Date/Time: Monday, January 29, 2018 18:54 - CONCLUSION: 1. No acute intracranial abnormalities. Peter Nicolas MD Femur X-Ray 01/29/18 0000 Signed Impressions: Service Date/Time: Monday, January 29, 2018 15:43 - CONCLUSION: Comminuted and angulated intertrochanteric fracture. Efrain Montague MD Chest X-Ray 01/29/18 0000 Signed Impressions: Service Date/Time: Monday, January 29, 2018 16:43 - CONCLUSION: 1. COPD changes. 2. Via and also the right suggesting previous lobectomy. Go Rangel MD Objective Remarks RLE: dressings clean and dry. intact. NVI Assessment & Plan Assessment and Plan 1) Right Intertroch hip fx s/p IMN - POD 2 -WBAT Daily dressing changes -DVT prophylaxis -pain control -surgeries complete -CM for DC planning -f/u with [facility] or [facility] in 2 weeks Jt Mendoza Jr. Feb 01, 2018 06:44
[2018-02-01 08:00] VITALS: BP 202/81; PULSE 68; RESP 20; TEMP 98; O2SAT 96
[2018-02-01] MEDS: FINASTERIDE 5 MG TAB PO SCH (08:29)
[2018-02-01] MEDS: PANTOPRAZOLE SOD 20 MG DELAYED RELEASE TAB PO SCH (08:29)
[2018-02-01] MEDS: CHOLECALCIFEROL (VIT D3) 1000 UNIT TAB PO SCH (08:29)
[2018-02-01] MEDS: LISINOPRIL 20 MG TAB PO SCH (08:30)
[2018-02-01] MEDS: QUEtiapine FUMARATE 25 MG TAB PO SCH (08:30)
[2018-02-01] MEDS: MULTIVITAMIN TAB PO SCH (08:30)
[2018-02-01] MEDS: THIAMINE HCL 100 MG TAB PO SCH (08:30)
[2018-02-01] MEDS: SODIUM CHLORIDE 0.9% FLUSH 10 ML FLUSH IV FLUSH SCH (08:30)
[2018-02-01] MEDS: BUDESONIDE-FORMOTEROL 160/4.5 MCG INHALER INH SCH (08:30)
[2018-02-01] MEDS: CALCIUM/VITAMIN D 250 MG/125 U TAB PO SCH (08:30)
[2018-02-01] MEDS: ENOXAPARIN SODIUM 30 MG/0.3 ML SYRINGE SQ SCH (08:31)
[2018-02-01] MEDS: CHOLECALCIFEROL (VIT D3) 5000 UNIT CAP PO SCH (08:34)
[2018-02-01 10:05] VITALS: BP 153/67
[2018-02-01 11:44] LABS: HEMATOCRIT 35.8 % (39.0-51.0); HEMOGLOBIN 12.2 GM/DL (13.0-17.0); MEAN CORPUSCULAR HEMOGLOBIN 31.7 PG (27.0-34.0); MEAN CORPUSCULAR HGB CONC 34.1 % (32.0-36.0); MEAN PLATELET VOLUME 8.1 FL (7.0-11.0); PLATELET COUNT 258 TH/MM3 (150-450); RED BLOOD COUNT 3.85 MIL/MM3 (4.50-5.90); RED CELL DISTRIBUTION WIDTH 16.3 % (11.6-17.2); WHITE BLOOD COUNT 10.1 TH/MM3 (4.0-11.0)
--- NOTE | 2018-02-01 11:52 | HHI.DCPOC ---
Discharge Care Plan Diagnosis: (1) Postoperative anemia due to acute blood loss (2) Uncontrolled hypertension (3) Protein-calorie malnutrition, severe (4) BPH (benign prostatic hyperplasia) (5) UTI (urinary tract infection) (6) Sepsis (7) COPD (chronic obstructive pulmonary disease) Goals to Promote Your Health * To prevent worsening of your condition and complications * To maintain your health at the optimal level Directions to Meet Your Goals Take your medications as prescribed Follow your dietary instruction Follow activity as directed Keep your appointments as scheduled Take your immunizations and boosters as scheduled If your symptoms worsen call your PCP, if no PCP go to Urgent Care Center or Emergency Room Smoking is Dangerous to Your Health. Avoid second hand smoke Call the 24-hour hour crisis hotline for domestic abuse at Emmett Rolle MD Feb 01, 2018 11:51
[2018-02-01 12:00] VITALS: BP 164/76; PULSE 75; RESP 20; TEMP 98.5; O2SAT 97
--- NOTE | 2018-02-01 12:03 | HHI.DS ---
Discharge Summary Admission Date Jan 29, 2018 at 17:44 Discharge Date: Feb 01, 2018 Admitting Diagnosis Right hip fracture, hypertension (1) Intertrochanteric fracture of right femur ICD Code: S72.141A - Displaced intertrochanteric fracture of right femur, initial encounter for closed fracture Diagnosis: Principal Status: Acute (2) Sepsis ICD Code: A41.9 - Sepsis, unspecified organism Diagnosis: Principal Status: Resolved (3) UTI (urinary tract infection) ICD Code: N39.0 - Urinary tract infection, site not specified Diagnosis: Principal Status: Resolved (4) H/O: CVA (cerebrovascular accident) ICD Code: Z86.73 - Personal history of transient ischemic attack (TIA), and cerebral infarction without residual deficits Diagnosis: Secondary (5) BPH (benign prostatic hyperplasia) ICD Code: N40.0 - Benign prostatic hyperplasia without lower urinary tract symptoms Diagnosis: Principal (6) COPD (chronic obstructive pulmonary disease) ICD Code: J44.9 - Chronic obstructive pulmonary disease, unspecified Diagnosis: Secondary (7) Uncontrolled hypertension ICD Code: I10 - Essential (primary) hypertension Diagnosis: Principal (8) Protein-calorie malnutrition, severe ICD Code: E43 - Unspecified severe protein-calorie malnutrition Procedures Right hip reduction and intramedullary nail fixation Brief History - From Admission History from patient, ER PA communication, reviewing medical records, and his sister and [id number] at the bedside. Patient is also known to me from his prior hospitalization in October 2017. Sister reported that patient has been feeling dizzy for the past 2-3 weeks. She also states that he was not eating well. Today, he had fallen down. This was not witnessed. She thinks that he may have passed out. Patient himself is able to give history to espinoza yes or no. He stated he felt at home but he is not able to describe to me whether he tripped on something or not. He is not sure whether he passed out or hit his head. Sister reported that he must been on the ground for about 30 minutes. She found him and then she called 911. Review of system, the sister stated the patient was at urology office just last week and was prescribed antibiotics. She stated that he told her that it was her urine infection. According to sister, he was not having any fever. He does have cough but this was also chronic according to her. Denies diarrhea. Patient has history of lung cancer for which he is no longer following with oncologist. He refused for follow-up. CBC/BMP: 02/01/18 1055 01/30/18 0621 Significant Findings Laboratory Tests Test 01/29/18 16:05 01/29/18 22:30 01/30/18 06:21 01/31/18 04:38 White Blood Count 17.5 TH/MM3 (4.0-11.0) 12.5 TH/MM3 (4.0-11.0) Red Blood Count 3.34 MIL/MM3 (4.50-5.90) 2.85 MIL/MM3 (4.50-5.90) Hemoglobin 10.6 GM/DL (13.0-17.0) 9.2 GM/DL (13.0-17.0) 6.9 GM/DL (13.0-17.0) Hematocrit 31.9 % (39.0-51.0) 27.2 % (39.0-51.0) 20.2 % (39.0-51.0) Mean Platelet Volume 6.9 FL (7.0-11.0) Neutrophils (%) (Auto) 92.4 % (16.0-70.0) 82.1 % (16.0-70.0) Lymphocytes (%) (Auto) 2.2 % (9.0-44.0) 8.7 % (9.0-44.0) Neutrophils # (Auto) 16.2 TH/MM3 (1.8-7.7) 10.3 TH/MM3 (1.8-7.7) Lymphocytes # (Auto) 0.4 TH/MM3 (1.0-4.8) Random Glucose 127 MG/DL (74-106) Potassium Level 3.4 MEQ/L (3.5-5.1) Urine Turbidity HAZY (CLEAR) Urine Ketones TRACE mg/dL (NEG) Urine Occult Blood MOD (NEG) Urine RBC 112 /hpf (0-3) Urine Calcium Oxalate Crystals FEW /hpf (NONE) Urine Bacteria OCC /hpf (NONE) Urine Mucus FEW /lpf (OCC) Monocytes (%) (Auto) 8.9 % (0.0-8.0) Monocytes # (Auto) 1.1 TH/MM3 (0-0.9) Calcium Level 8.2 MG/DL (8.5-10.1) Anion Gap 4 MEQ/L (5-15) 25-Hydroxy Vitamin D Total 4.3 ng/ML (30-100) Test 01/31/18 23:14 02/01/18 10:55 Red Blood Count 3.24 MIL/MM3 (4.50-5.90) 3.85 MIL/MM3 (4.50-5.90) Hemoglobin 10.4 GM/DL (13.0-17.0) 12.2 GM/DL (13.0-17.0) Hematocrit 30.1 % (39.0-51.0) 35.8 % (39.0-51.0) Imaging Last Impressions Hip X-Ray 01/30/18 0000 Signed Impressions: Service Date/Time: Tuesday, January 30, 2018 08:50 - CONCLUSION: Interim nail and jemma fixation of intertrochanteric fracture in near-anatomic alignment. No evidence of an acute complication. Hayden Andino MD Pelvis X-Ray 01/29/18 0000 Signed Impressions: Service Date/Time: Monday, January 29, 2018 15:41 - CONCLUSION: Comminuted and angulated intratrochanteric fracture of the right side. Efrain Montague MD Head CT 01/29/18 0000 Signed Impressions: Service Date/Time: Monday, January 29, 2018 18:54 - CONCLUSION: 1. No acute intracranial abnormalities. Peter Nicolas MD Femur X-Ray 01/29/18 0000 Signed Impressions: Service Date/Time: Monday, January 29, 2018 15:43 - CONCLUSION: Comminuted and angulated intertrochanteric fracture. Efrain Montague MD Chest X-Ray 01/29/18 0000 Signed Impressions: Service Date/Time: Monday, January 29, 2018 16:43 - CONCLUSION: 1. COPD changes. 2. Via and also the right suggesting previous lobectomy. Go Rangel MD PE at Discharge GENERAL: Thin cachectic elderly gentleman, not in acute distress. NAD Has his hearing aid on and able to answer yes or no questions. SKIN: No rashes, ecchymoses or lesions. Cool and dry. HEAD: Atraumatic. Normocephalic. No temporal or scalp tenderness. EYES:. No scleral icterus. No injection or drainage. ENT: Nose without bleeding, purulent drainage or septal hematoma. Airway patent. NECK: Trachea midline. No JVD Supple, nontender, no meningeal signs. CARDIOVASCULAR: Regular rate and rhythm without gallops, or rubs. Systolic murmur at aortic area with radiation to the neck Respiratory: Bilateral decreased air entry. GASTROINTESTINAL: Abdomen soft, non-tender, nondistended. No guarding. MUSCULOSKELETAL: Extremities without clubbing, cyanosis. No calf tenderness. Righ hip with dressing which looks C/D/I. No hematoma observed on right hip. NEUROLOGICAL: Awake and alert. Normal speech. Pt Condition on Discharge: Stable Discharge Disposition: Discharge to SNF Discharge Time: > 30 minutes Discharge Instructions DIET: Follow Instructions for: As Tolerated, No Restrictions Activities you can perform: Weight Bearing as Jessica Follow up Referrals: Orthopedics - 2 Weeks @ [facility] with Mingo Velázquez MD New Medications: Calcium Carbonate-Vitamin D (Calcium 600+D 200) 600-200 Mg-Unit Tab 1 TAB PO BID for Nutritional Supplement for 30 Days, #60 TAB 0 Refills Cholecalciferol (Vitamin D3) 2,000 Unit Cap 2000 UNITS PO DAILY for Nutritional Supplement, #60 CAP 0 Refills Ergocalciferol (Ergocalciferol) 50,000 Unit Cap 96488 UNITS PO Q7D for Nutritional Supplement, #8 CAP Hydrocodone-Acetaminophen (Hydrocodone-Acetaminophen) 7.5 Mg-325 Mg Tab 1 TAB PO Q4H PRN for PAIN, #60 TAB 0 Refills Rivaroxaban (Xarelto) 10 Mg Tab 10 MG PO DAILY for Blood Clot Prevention, #14 TAB 0 Refills Walker/Adult/Folding (Walker/Adult/Folding) 1 Mis Mis EA .XX DIRECTED, #1 0 Refills Continued Medications: Albuterol 18 GM Inh (Ventolin Hfa 18 GM Inh) 90 Mcg/Act Aer 2 PUFF INH Q4-6H PRN for SHORTNESS OF BREATH, #1 INHALER 0 Refills Alprazolam (Alprazolam) 0.25 Mg Tab 0.25 MG PO HS PRN for ANXIETY, TAB 0 Refills Buprenorphine-Naloxone Sublingual Film (Suboxone Sublingual Film) 8-2 Mg Film 1 FILM SL BID, FILM Unique ID number required: Clonazepam (Clonazepam) 1 Mg Tab 1 MG PO BID, #60 TAB 0 Refills Finasteride (Finasteride) 5 Mg Tab 5 MG PO DAILY for Manage Prostate Problems, #30 TAB 0 Refills Do not crush. Ipratropium HFA 12.9 GM Inh (Atrovent HFA 12.9 GM Inh) 17 Mcg/Actuation Aer 2 PUFF INH Q6HR PRN for SHORTNESS OF BREATH, #1 INHALER 0 Refills Lisinopril (Lisinopril) 20 Mg Tab 20 MG PO DAILY for Blood Pressure Management, #30 TAB Multivitamin with Folic Acid (Thera Tablet) 400 Mcg Tablet 1 TAB PO DAILY for Nutritional Supplement, #30 TAB Pantoprazole (Pantoprazole) 20 Mg Tab 20 MG PO DAILY for Reflux, #30 TAB 0 Refills Quetiapine (Seroquel) 25 Mg Tab 25 MG PO BID for health for 30 Days, #60 TAB Ranitidine (Ranitidine) 150 Mg Tab 150 MG PO BID for Heartburn Management, #60 TAB 0 Refills Thiamine HCl (Gnp Vitamin B-1) 100 Mg Tab 100 MG PO DAILY for Nutritional Supplement, #1 TAB Trazodone (Trazodone) 100 Mg Tablet 100 MG PO HS for Control Depression, #30 TAB 0 Refills [Budeson-Formot 160-4.5 Mcg Inh] () 60 PUFF AERO 2 PUFF INH Q12HR for COPD, #1 INHALER [guaiFENesin ER] () 600 MG TABCR 600 MG PO BID for COUGH, #30 Discontinued Medications: Aspirin DR (Aspirin DR) 81 Mg Tabdr 81 MG PO DAILY for Blood Clot Prevention, #30 TAB Emmett Rolle MD Feb 01, 2018 12:03
[2018-02-01 12:19] LABS: BICARBONATE 28.9 MEQ/L (21.0-32.0); CALCIUM 8.4 MG/DL (8.5-10.1); CREATININE 0.51 MG/DL (0.60-1.30)
[2018-02-01 13:12] VITALS: RESP 16
== END 2018-02-01 15:13 | DRG 480 ==
LOC: NEPE 14:44 → NEDA 17:44 → N06B 23:51
PROVIDERS: ADMIT Hospitalist; ATTEND Hospitalist
PROC: 0QS636Z Reposition Right Upper Femur with Intramedullary Internal Fixation Device, Percutaneous Approach (ICD-10-PCS; principal; 2018-01-30 08:30)
DX: S72.141A Displaced intertrochanteric fracture of right femur, initial encounter for closed fracture (principal); E43 Unspecified severe protein-calorie malnutrition; I63.9 Cerebral infarction, unspecified; A41.9 Sepsis, unspecified organism; R64 Cachexia; D62 Acute posthemorrhagic anemia; J44.1 Chronic obstructive pulmonary disease with (acute) exacerbation; Z68.1 Body mass index [BMI] 19.9 or less, adult; N30.00 Acute cystitis without hematuria; I10 Essential (primary) hypertension; M19.90 Unspecified osteoarthritis, unspecified site; M40.295 Other kyphosis, thoracolumbar region; Z90.2 Acquired absence of lung [part of]; Z95.1 Presence of aortocoronary bypass graft; N40.0 Benign prostatic hyperplasia without lower urinary tract symptoms; F41.9 Anxiety disorder, unspecified; F11.99 Opioid use, unspecified with unspecified opioid-induced disorder; M54.9 Dorsalgia, unspecified; R61 Generalized hyperhidrosis; E87.6 Hypokalemia; F17.210 Nicotine dependence, cigarettes, uncomplicated; G89.29 Other chronic pain; H91.90 Unspecified hearing loss, unspecified ear; I25.10 Atherosclerotic heart disease of native coronary artery without angina pectoris; E78.5 Hyperlipidemia, unspecified; I73.9 Peripheral vascular disease, unspecified; I65.29 Occlusion and stenosis of unspecified carotid artery; W18.30XA Fall on same level, unspecified, initial encounter; Z74.01 Bed confinement status; Z86.73 Personal history of transient ischemic attack (TIA), and cerebral infarction without residual deficits; Z79.82 Long term (current) use of aspirin; Z79.899 Other long term (current) drug therapy; Z85.118 Personal history of other malignant neoplasm of bronchus and lung; Z92.21 Personal history of antineoplastic chemotherapy
CPT/HCPCS: 36430; 51702; 70450; 71045; 72170; 73502; 73552; 76000; 76937; 80048; 81001; 82306; 85014; 85018; 85025; 85027; 85610; 85730; 86850; 86900; 86901; 86920; 87086; 93005; 93306; 96365; 96375; C1713; J0131; J0360; J0690; J1580; J1650; J1940; J2270; J2370; J2405; J3010; J3370; J7050; J7120; P9016

== ENCOUNTER 2018-02-04 12:11 | Emergency (ER) | payer MEDICARE, MEDICAID ==
[~2018-02-04] VITALS: Ht 170.2 cm; Wt 45.0 kg
[~2018-02-04 12:11] MED LIST changes: +ALPR0.25 PO; +CALCTAB19 PO; +CLON1TAB PO; -ECASA81 PO; +HYDR-3580 PO; +PANT20TA2 PO; +RANI150T PO; +SUBO8MIS SL; +VITA2000 PO; +VITA500012 PO; +WALKER/ADULT/FO1 MIS; +XARE10TA PO
[2018-02-04 12:18] VITALS: BP 121/58; RESP 17
--- NOTE | 2018-02-04 13:11 | PD ---
HPI Chief Complaint: Complaint Time Seen by Provider: 12:14 Travel History International Travel<30 days: No Contact w/Intl Traveler<30days: No Traveled to known affect area: No History of Present Illness HPI 9-year-old male presents to the emergency department from his nursing facility after he apparently pulled out his Burr catheter in there and I am unable to replace it. Is on Xarelto for DVT prophylaxis following a recent hip replacement. He has BPH. He is unable to provide any additional history. History Past Medical History Narrative Medical Hypertension History of lung cancer/squamous cell carcinoma in 2010. Status post lobectomy and chemotherapy in 2011, decided to stop chemo [place] [address] Guajardo. He was lost to follow-up with them by 2013. COPD PAD with LE stenting CVA BPH. Hard of hearing Recent hip fracture Social History Alcohol Use: Yes Tobacco Use: Yes Allergies-Medications (Allergen,Severity, Reaction): Coded Allergies: oxycodone (Unverified Allergy, Mild, Hives, 02/04/18) tramadol (Unverified Allergy, Mild, Itching, 02/04/18) Lqdslhx-Cek-Lfc Reductase Inhibitor (Unverified Allergy, Unknown, 02/04/18) sertraline (Unverified Allergy, Unknown, 02/04/18) Reported Meds & Prescriptions Reported Meds & Active Scripts Active Calcium 600+D 200 (Calcium Carbonate-Vitamin D) 600-200 Mg-Unit Tab 1 Tab PO BID 30 Days Vitamin D3 (Cholecalciferol) 2,000 Unit Cap 2,000 Units PO DAILY Ergocalciferol 50,000 Unit Cap 50,000 Units PO Q7D Xarelto (Rivaroxaban) 10 Mg Tab 10 Mg PO DAILY Hydrocodone-Acetaminophen 7.5 Mg-325 Mg Tab 1 Tab PO Q4H PRN Walker/Adult/Folding (Device) 1 Mis Mis Ea .XX DIRECTED Ventolin Hfa 18 GM Inh (Albuterol Sulfate) 90 Mcg/Act Aer 2 Puff INH Q4-6H PRN Atrovent HFA 12.9 GM Inh (Ipratropium [place]) 17 Mcg/Actuation Aer 2 Puff INH Q6HR PRN Lisinopril 20 Mg Tab 20 Mg PO DAILY Seroquel (Quetiapine Fumarate) 25 Mg Tab 25 Mg PO BID 30 Days Trazodone (Trazodone HCl) 100 Mg Tablet 100 Mg PO HS Thera Tablet (Multivitamin with Folic Acid) 400 Mcg Tablet 1 Tab PO DAILY Gnp Vitamin B-1 (Thiamine HCl) 100 Mg Tab 100 Mg PO DAILY [guaiFENesin ER] 600 MG Tabcr 600 Mg PO BID [Budeson-Formot 160-4.5 Mcg Inh] 60 PUFF Aero 2 Puff INH Q12HR Reported Suboxone Sublingual Film (Buprenorphine-Naloxone Sublingual Film) 8-2 Mg Film 1 Film SL BID Unique ID number required: Alprazolam 0.25 Mg Tab 0.25 Mg PO HS PRN Clonazepam 1 Mg Tab 1 Mg PO BID Ranitidine (Ranitidine HCl) 150 Mg Tab 150 Mg PO BID Pantoprazole (Pantoprazole Sodium) 20 Mg Tab 20 Mg PO DAILY Finasteride 5 Mg Tab 5 Mg PO DAILY Do not crush. Review of Systems Except as stated in HPI: all other systems reviewed are Neg Physical Exam Narrative GENERAL: 72-year-old man, frail, somewhat cachectic. SKIN: Focused skin assessment warm/dry. NECK: Trachea midline. No JVD. CARDIOVASCULAR: Regular rate and rhythm. No murmur appreciated. RESPIRATORY: No accessory muscle use. Clear to auscultation. Breath sounds equal bilaterally. GASTROINTESTINAL: Abdomen is distended in the lower abdomen. : Chon blood dribbling from the meatus. Otherwise unremarkable. MUSCULOSKELETAL: No obvious deformities. No clubbing. No cyanosis. No edema. NEUROLOGICAL: Weak. Does not really talk. No following commands. PSYCHIATRIC: Appropriate mood and affect; insight and judgment normal. Data Data Last Documented VS Vital Signs Date Time Temp Pulse Resp B/P (MAP) Pulse Ox O2 Delivery O2 Flow Rate FiO2 02/04/18 12:18 17 121/58 (79) [facility] Medical Decision Making Medical Screen Exam Complete: Yes Emergency Medical Condition: Yes Differential Diagnosis Bladder outlet obstruction, bleeding, hematuria, other Narrative Course Medical decision making 9-year-old male presents emerged department with displaced Burr catheter, urinary obstruction. I tried to replace the catheter the bedside unsuccessfully. Spoke with Dr. Zuniga, came to bedside to evaluate the patient. FINAL: Burr placed by urology. Procedures Procedure Narrative Burr catheter placement: Attempted Burr catheter placed at the bedside. Tried a 18 Faroese coud catheter was unsuccessful, also attempted a 16 Faroese regular catheter also unsuccessful. There is blood from the meatus both before and after the procedure. Otherwise tolerated well. Diagnosis Primary Impression: Malfunction of Burr catheter Patient Instructions: General Instructions Additional Instructions: Take precautions to prevent Burr dislodgment. Take antibiotics as prescribed. Return to the emergency department for any new or worsening symptoms. Med/Other Pt SpecificInfo: No Change to Meds Scripts Cephalexin (Keflex) 500 Mg Capsule 500 MG PO TID for Infection for 7 Days, CAP 0 Refills Prov: Kody Santos MD 02/04/18 Disposition: 01 DISCHARGE HOME Condition: Stable Kody Santos MD Feb 04, 2018 13:11
[2018-02-04] MEDS ORDERED: CEPH-460 PO (13:31)
--- NOTE | 2018-02-04 14:17 | MB ---
cc: EfrainNarendra Mendoza DO DATE: 02/04/2018 HISTORY OF PRESENT ILLNESS: Mr. Norwood is a 72-year-old male who was transferred from a nursing facility after a traumatic Burr removal. He has had a Burr in since his recent hip replacement, and he is also on Xarelto. He has been having gross hematuria since he was brought to the emergency room and the emergency room staff was unable to place a Burr catheter. The patient is unable to provide a full history at this point in time. This is taken from the chart. PAST MEDICAL HISTORY: Includes hypertension, BPH, prior stroke, COPD, squamous cell lung carcinoma. PAST SURGICAL HISTORY: Noted for a recent hip repair and lobectomy followed by chemotherapy in 2012. SOCIAL HISTORY: Lives in a fci. There is a prior history of smoking and drinking. ALLERGIES: PLEASE REFER TO THE CHART. MEDICATIONS: Please refer to the chart. REVIEW OF SYSTEMS: Gross hematuria is noted. Lower abdominal distention is also noted with some pain. He denies chest pain, shortness of breath, bleeding disorders, other than on Xarelto, psychiatric problems, skin lesions. The remaining review of systems were reviewed and were negative. PHYSICAL EXAMINATION: VITAL SIGNS: Temperature afebrile. Blood pressure 121/58, heart rate 75, respiratory rate 17. GENERAL: He is a well-developed, well-nourished, 72-year-old male in moderate distress. HEENT: Normocephalic, atraumatic. Pupils equal, round, regular and reactive to light. Extraocular movements intact. NECK: Supple. HEART: Regular rate and rhythm. LUNGS: Clear. ABDOMEN: Soft, nontender. Bladder is distended on exam. GENITOURINARY: Normal phallus. Testes are descended. EXTREMITIES: Show no cyanosis, clubbing, or edema. NEUROLOGIC: Cranial nerves 2-12 are intact. LABORATORY DATA: White count 10.1, hemoglobin 12.2, hematocrit 35.8, platelet count of 258. Sodium 137, potassium 3.9, chloride 100, CO2 of 28.9, BUN 13, creatinine 0.51, glucose of 107. At the bedside, the patient underwent filiform and followers followed by wire placement and a 20-Yakut 2-way Burr catheter was then placed over the wire without difficulty. Clear urine was noted to drain upon return. ASSESSMENT AND PLAN: This is a 72-year-old male with a recent hip repair with benign prostatic hypertrophy with obstruction and urinary retention. Would recommend continue with Burr catheter drainage for now. Would leave the Burr in at least another 2 weeks before giving a void trial, and he could followup as an outpatient within the next month. Would discharge home with p.o. antibiotics for a few days due to recent manipulation from Burr catheter insertion. Thank you for the consult and allowing me to participate in the care of this patient. DO RSOA Smith/JENNIFER , 01:35 PM , 02:16 PM
[2018-02-04 17:51] VITALS: BP 124/62
== END 2018-02-04 17:52 | disposition home or self-care (01) ==
LOC: NEPE 12:11 → NEDAMB 17:52
DX: T83.091A Other mechanical complication of indwelling urethral catheter, initial encounter (principal); N40.1 Benign prostatic hyperplasia with lower urinary tract symptoms; N13.8 Other obstructive and reflux uropathy
CPT/HCPCS: 51703